=== PATIENT | male | born 1980 | race Caucasian/White ===

== ENCOUNTER 2017-04-13 22:53 | Emergency (ER) | payer MEDICAID, SELFPAY ==
[2016-12-11 11:39] VITALS: BMI 38.3
[2017-04-13 22:54] VITALS: BP 153/81; PULSE 87; RESP 16; TEMP 36.6; O2SAT 100; BMI 39.4
[2017-04-13] MEDS: Penicillin Vk 250 MG Tablet 500 MG PO (23:17)
--- NOTE | 2017-04-13 23:19 | ED.VISSUMM ---
- ER Visit Summary Date of Service: 04/13/17 Chief Complaint: Dental pain History of Present Illness: The patient is a 37 M worsening right upper dental pain today. Hot and cold sensitivities. Dental fracture 3 days ago. States had a filling fall out in same to the month ago put a temporary [id number] paste on it which has helped symptoms. Does have a dentist has not followed up. Been using Tylenol. No other complaints. Physical Examination: General: Alert and oriented ?3, no acute distress HEENT: Normocephalic, atraumatic. Moist mucosa membranes. There is a broken tooth tooth #2 on the lingual side. There is temporary pace centrally. There is no fluctuance. Tender percussion of the same tooth. Airway pain. Neck: supple, nontender. Cardiovascular: Regular rate and rhythm, no murmurs Respiratory: Normal breath sounds, symmetric, no distress Abdomen: Soft, nontender, nondistended Extremities: Nontender, no edema, pulses intact ?4 Neuro: no focal neurological deficits. Test Results: [] Emergency Department Course and Treatment: Dental copak was placed on the tooth, in addition I did perform a dental block which improved his symptoms. He started on penicillin. He will call his dentist tomorrow for outpatient follow-up for definitive care. Treatment Plan: [] Disposition: Discharge Impression: 1. Odontalgia, dental caries tooth #2 This note was generated with [employer] dictation software. It may contain incorrect words, spelling, and punctuation that were not noted in review of the chart prior to signing ED Disposition - Plan for ED Patient: Disposition: Home or Assisted Living Chief Complaint: Dental Diagnosis: Dental caries Instructions: ED Cavity Dental Prescriptions: Penicillin V Potassium 500 mg PO 4X/DAY #40 tablet Referrals: Wali Reynaga MD [Primary Care Provider] - Additional Instructions: Call dentist tomorrow for follow-up for definitive care.
--- NOTE | 2017-04-13 23:25 | ED.DCSUM_ITS ---
- ER Visit Summary Date of Service: 04/13/17 Chief Complaint: Dental pain History of Present Illness: The patient is a 37 M worsening right upper dental pain today. Hot and cold sensitivities. Dental fracture 3 days ago. States had a filling fall out in same to the month ago put a temporary over-the- counter paste on it which has helped symptoms. Does have a dentist has not followed up. Been using Tylenol. No other complaints. Physical Examination: General: Alert and oriented ?3, no acute distress HEENT: Normocephalic, atraumatic. Moist mucosa membranes. There is a broken tooth tooth #2 on the lingual side. There is temporary pace centrally. There is no fluctuance. Tender percussion of the same tooth. Airway pain. Neck: supple, nontender. Cardiovascular: Regular rate and rhythm, no murmurs Respiratory: Normal breath sounds, symmetric, no distress Abdomen: Soft, nontender, nondistended Extremities: Nontender, no edema, pulses intact ?4 Neuro: no focal neurological deficits. Test Results: [] Emergency Department Course and Treatment: Dental copak was placed on the tooth , in addition I did perform a dental block which improved his symptoms. He started on penicillin. He will call his dentist tomorrow for outpatient follow- up for definitive care. Treatment Plan: [] Disposition: Discharge Impression: 1. Odontalgia, dental caries tooth #2 This note was generated with [employer] dictation software. It may contain incorrect words, spelling, and punctuation that were not noted in review of the chart prior to signing ED Disposition - Plan for ED Patient: Disposition: Home or Assisted Living Chief Complaint: Dental Diagnosis: Dental caries Instructions: ED Cavity Dental Prescriptions: Penicillin V Potassium 500 mg PO 4X/DAY #40 tablet Referrals: Wali Reynaga MD [Primary Care Provider] - Additional Instructions: Call dentist tomorrow for follow-up for definitive care.
[2017-04-13 23:31] VITALS: RESP 18
== END 2017-04-13 23:32 | disposition home or self-care (01) ==
PROVIDERS: Emergency Provider Emergency Medicine; Family Provider Family Medicine; PCP Family Medicine
DX: K02.9 Dental caries, unspecified (principal); S02.5XXG Fracture of tooth (traumatic), subsequent encounter for fracture with delayed healing; X58.XXXD Exposure to other specified factors, subsequent encounter; E11.9 Type 2 diabetes mellitus without complications; I10 Essential (primary) hypertension; I25.10 Atherosclerotic heart disease of native coronary artery without angina pectoris; E78.00 Pure hypercholesterolemia, unspecified; Z72.0 Tobacco use
CPT/HCPCS: 64402; 99283

== ENCOUNTER → 2017-07-20 14:00 | Outpatient (CLI) | payer SELFPAY ==
[2016-12-11 11:39] VITALS: BMI 38.3
--- NOTE | 2017-07-20 14:00 | DT_ITS ---
This patient was seen during an EMR downtime July 19, 2017 - July 26, 2017. This patient may have a combination of paper and electronic documentation or all paper documentation. All documentation is viewable within the e-chart portion of [facility] for each patient visit.
[2017-07-26 10:40] LABS: Eosinophils% 4.5 % (0-5); Hematocrit 50.6 % (40-54); Lymphocyte % 35.7 % (19-41); Mean Corp Hgb Conc 33.6 g/gl (32-36); Mean Corpuscular Hgb 29.1 pg (27.0-32.0); Mean Corpuscular Volume 86.6 fL (80-94); Monocyte% 5.7 % (0-10); POSITIVE COUNT NO; POSITIVE DIFFERENTIAL NO; POSITIVE MORPHOLOGY NO; Platelet Count 228 K/mm3 (150-450); RBC Distribution Width CV 13.2 % (11.6-14.6); Red Blood Count 5.84 M/mm3 (4.6-6.2); White Blood Count 8.4 K/mm3 (4.4-11.0)
[2017-07-26 10:41] LABS: Absolute Neutrophil Count 4.5 X10^3/uL (2.0-7.7); Basophil# 0.06 X10^3/uL; Basophil% 0.7 % (0-1); Eosinophil# 0.38 X10^3/uL; Monocyte# 0.48 X10^3/uL; Neutrophil # 4.46 X10^3/uL (2.7-7.7)
[2017-07-26 10:42] LABS: ALB/GLOB Ratio 1.1 RATIO (0.9-2.4); AST(SGOT) 18 U/L (15-37); Alanine Aminotransfer ALT/SGPT 38 U/L (16-61); Albumin, Serum 3.9 g/dL (3.2-5.0); Alkaline Phosphatase 63 U/L (45-117); Anion Gap 8 (5-15); BUN 9 mg/dL (7-18); BUN/Creat Ratio 11.1 RATIO (10-20); Calcium,Total 8.9 mg/dL (8.5-10.1); Chloride 101 mmol/L (98-107); Creatinine, Serum 0.81 mg/dL (0.70-1.30); EST Glomerular Filtration Rate 114 mL/min (>60); Est Glom Filt Rate - Afr Amer 138 mL/min (>60); Globulin 3.6 g/dL (2.2-4.2); Glucose 239 mg/dL (74-106); Potassium 4.2 mmol/L (3.5-5.1); Protein, Total 7.5 g/dL (6.4-8.2); Sodium Level 135 mmol/L (136-145)
[2017-07-26 10:43] LABS: T4 Free Direct 1.02 ng/dL (0.76-1.46); Thyroid Stim Hormone (TSH) 1.17 uIU/mL (0.358-3.74)
== END ==
PROVIDERS: Family Provider Family Medicine; PCP Family Medicine; Visit Provider Family Medicine
DX: E11.9 Type 2 diabetes mellitus without complications (principal); F41.9 Anxiety disorder, unspecified; I25.10 Atherosclerotic heart disease of native coronary artery without angina pectoris; I10 Essential (primary) hypertension
CPT/HCPCS: 36415; 80053; 84439; 84443; 85025

== ENCOUNTER 2017-09-16 11:03 | Observation (INO) | payer SELFPAY ==
[2016-12-11 11:39] VITALS: BMI 38.3
[2017-09-16] VITALS (16 sets, daily range): BP systolic 126–176; BP diastolic 71–99; PULSE 83–106; RESP 14–21; TEMP 36.7–37; O2SAT 94–98; BMI 38.0; BMI 38.2; BMI 38.3
--- NOTE | 2017-09-16 11:21 | EKG12_ITS ---
Test Reason : CP Blood Pressure : / mmHG Vent. Rate : 107 BPM Atrial Rate : 107 BPM P-R Int : 166 ms QRS Dur : 078 ms QT Int : 326 ms P-R-T Axes : 061 006 053 degrees QTc Int : 435 ms Sinus tachycardia Otherwise normal ECG Confirmed by JONATAN CALDERON, CAMERON ([id number]), editor greeting card YOAN CLARK ([id number]) on 09/20/2017 2:00:52 PM Referred By: BENY Confirmed By:CAMERON CHEUNG MD
--- NOTE | 2017-09-16 11:21 | RAD_ITS ---
STUDY: X-RAY CHEST REASON FOR EXAM: Male, 37 years old. Chest discomfort. TECHNIQUE: Single AP portable view of the chest. COMPARISON: Comparison is made with prior study dated November 02, 2016. FINDINGS: EKG electrodes are seen. Mild increased markings at the left lung base suggests mild left basilar atelectasis. There is no demonstrated pleural abnormality. Normal size heart. Normal mediastinum and junior. Normal visualized pulmonary arteries. Normal visualized aortic arch and descending thoracic aorta. Normal visualized thoracic spine. Normal visualized ribs, clavicles, and shoulders. There is no demonstrated abnormality of the visualized soft tissue structures of the upper abdomen. RAD/Chest 1 View (Portable) IMPRESSION: Mild degree of increasing markings at the left lung base suggestive mild left basilar atelectasis. Electronically Signed: Leandro Urena MD at 12:34 EDT Tel [phone], Service support ,
[2017-09-16] MEDS: Aspirin 81 MG TAB.CHEW 324 MG PO (11:29)
[2017-09-16 11:32] LABS: Absolute Lymphocyte Count 2.38 X10^3/ul (0.83-4.51); Absolute Neutrophil Count 5.8 X10^3/uL (2.0-7.7); Basophil# 0.07 X10^3/uL; Basophil% 0.8 % (0-1); Eosinophil# 0.43 X10^3/uL; Eosinophils% 4.7 % (0-5); Hematocrit 51.5 % (40-54); Hemoglobin 17.9 g/dl (13.0-16.5); Lymphocyte # 2.38 X10^3/ul (4.0); Lymphocyte % 26.1 % (19-41); Mean Corp Hgb Conc 34.8 g/gl (32-36); Mean Corpuscular Volume 86.3 fL (80-94); Mean Platelet Vol. 11.2 fl (6.2-12.0); Monocyte# 0.43 X10^3/uL; Monocyte% 4.7 % (0-10); Neutrophil # 5.77 X10^3/uL (2.7-7.7); Neutrophil % 63.4 % (47-70); POSITIVE COUNT NO; POSITIVE DIFFERENTIAL NO; POSITIVE MORPHOLOGY NO; Platelet Count 253 K/mm3 (150-450); RBC Distribution Width CV 13.3 % (11.6-14.6); RBC Distribution Width SD 41.6 fl (35.1-43.9); Red Blood Count 5.97 M/mm3 (4.6-6.2); White Blood Count 9.1 K/mm3 (4.4-11.0)
[2017-09-16 11:45] LABS: Anion Gap 6 (5-15); BUN 7 mg/dL (7-18); BUN/Creat Ratio 8.1 RATIO (10-20); Calcium,Total 9.6 mg/dL (8.5-10.1); Chloride 98 mmol/L (98-107); Creatinine, Serum 0.86 mg/dL (0.70-1.30); EST Glomerular Filtration Rate 105 mL/min (>60); Est Glom Filt Rate - Afr Amer 127 mL/min (>60); Estimated Creatinine Clearance 129.08 ml/min; Glucose 313 mg/dL (74-106); Lipase 97 U/L (73-393); Potassium 4.5 mmol/L (3.5-5.1); Sodium Level 133 mmol/L (136-145)
--- NOTE | 2017-09-16 11:49 | ED.RN ---
REPORTS HEADACHE AND PT DIAPHORETIC. STATES THIS HAS BEEN HAPPENING INTERMITTENTLY SINCE WIT OTHER SX. SIGNIFICANT DROP IN PB WITH NOTRO HOLDIN THIRD NITRO
[2017-09-16] MEDS: 0.9% Normal Saline 1,000 ML 150 ML IV (11:52)
[2017-09-16 11:53] LABS: AST(SGOT) 16 U/L (15-37); Alanine Aminotransfer ALT/SGPT 32 U/L (16-61); Albumin, Serum 3.9 g/dL (3.2-5.0); Alkaline Phosphatase 68 U/L (45-117); Bilirubin, Direct 0.09 mg/dL (0.00-0.30); Protein, Total 7.9 g/dL (6.4-8.2)
[2017-09-16 12:05] LABS: D-Dimer Quantitative (DVT/PE) < 0.27 FEU/ug/m (0.27-0.49)
--- NOTE | 2017-09-16 13:19 | ED.VISSUMM ---
- ER Visit Summary Date of Service: 09/16/17 Chief Complaint: [Chest pain] History of Present Illness: The patient is a 37 M [presents with chest pain that started 5 days ago. Patient describes a dull pressure retrosternal and left chest. Patient also states he has had some pain in his right upper quadrant after eating at times hurts to breathe. He has had decreased energy has been feeling lightheaded and dizzy at times with activity. Patient is concerned because he does have a history of prior cardiac stent placement in November 2016. Patient has a history of diabetes, hypertension, and high cholesterol. Patient denies recent travel or surgery.] Physical Examination: [HEENT-PERRLA, EOMI. Cranial nerves II through XII grossly intact. TMs clear. Mucous membranes moist. No adenopathy. Cardiovascular-regular rate and rhythm without murmur or ectopy Lungs-clear to auscultation, chest wall stable without crepitus or subcu emphysema Abdomen-normoactive bowel sounds, soft. Patient does have some tenderness over right upper quadrant with some guarding. There is no rebound, rigidity, or perineal signs. Extremities-intact ?4, normal range of motion, normal pulses, atraumatic] Test Results: [EKG obtained on arrival shows sinus rhythm with a ventricular rate of 107 bpm with no acute ST segment changes. CBC with differential was normal. Chemistries unremarkable. LFTs and lipase were normal. Troponin was less than 0.015. D-dimer was less than 0.27. Chest x-ray showed mild atelectasis left left lung base otherwise nothing acute. ] Emergency Department Course and Treatment: [Patient currently on Plavix. He received sublingual nitro in the emergency department which did ease his pain but continues to complain of some discomfort.] Treatment Plan: [Admit to rule out cardiac etiology for his chest pain given his history of coronary artery disease and cardiac stent. Patient does state that this pain feels similar to what he had when he required stent.] Disposition: [Admit] Impression: [Chest pain-rule out acute coronary syndrome] This note was generated with [employer] dictation software. It may contain incorrect words, spelling, and punctuation that were not noted in review of the chart prior to signing ED Disposition - Plan for ED Patient: Chief Complaint: Chest Pain Referrals: Wali Reynaga MD [Primary Care Provider] -
--- NOTE | 2017-09-16 13:38 | HP.PCM_ITS ---
Problem List (1) Diabetes mellitus Status: Chronic Qualifiers: (2) Atherosclerotic heart disease of [place] coronary artery without angina pectoris Status: Chronic (3) Type 2 diabetes mellitus Status: Chronic (4) Dyslipidemia Status: Chronic (5) Hypertension Status: Chronic Qualifiers: (6) Mild intermittent asthma Status: Chronic (7) HLD (hyperlipidemia) Status: Chronic Qualifiers: History of Present Illness Date of Admission: 09/16/17 Chief Complaint: Chest pain. The patient is a 37 year old M with past medical history as mentioned above presented to the emergency room because of chest pain. His symptoms started this past Wednesday which is 4 days ago with mid chest pain, described as dull aching pain, constant pain, 5 out of 10 in severity, sometimes extends down to the epigastric and right upper quadrant abdominal pain, associated with nausea and dizziness, aggravated by taking a deep breath and without relieving factors. He reported associated significant retching and nausea. He mentioned that the pain has been constant for 4 days. In the emergency department, he was slightly tachycardic, other vital signs are stable. His routine blood work was unremarkable, blood sugar was 313. LFT and lipase were normal. EKG revealed normal sinus rhythm, no acute ischemic changes. Troponin is negative. Chest x-ray showed no acute findings. He is being admitted for chest pain for evaluation. Past Medical History Past Medical History (Chronic Problems): Chronic Problems (Last Updated 01/22/17 @ 10:19 by MARYLU Foster) Diabetes mellitus (Chronic) Claudication (Chronic) Patient does state getting discomfort that he describes as bubbly in his lower extremity legs when walking. He states this is a similar sensation to what he felt prior to his PCI. We will further evaluate this with ABIs. History of percutaneous coronary intervention (Chronic) PCI to LAD in November 2016 Atherosclerotic heart disease of [place] coronary artery without angina pectoris (Chronic) Type 2 diabetes mellitus (Chronic) Dyslipidemia (Chronic) Hypertension (Chronic) Simple obesity (Chronic) Tobacco user (Chronic) Mild intermittent asthma (Chronic) Morbid obesity with BMI of 40.0-44.9, adult (Chronic) HLD (hyperlipidemia) (Chronic) Medical History: Medical History (Last Updated 01/22/17 @ 10:19 by JEFFREY FosterC) Atherosclerotic heart disease of [place] coronary artery without angina pectoris (Chronic) I25.10 Type 2 diabetes mellitus (Chronic) E11.9 Dyslipidemia (Chronic) E78.5 Hypertension (Chronic) I10 Simple obesity (Chronic) E66.9 Tobacco user (Chronic) Z72.0 Mild intermittent asthma (Chronic) J45.20 Morbid obesity with BMI of 40.0-44.9, adult (Chronic) E66.01, Z68.41 HLD (hyperlipidemia) (Chronic) E78.5 Anxiety F41.9 Depression F32.9 Diabetic nephropathy Allergies lisinopril Allergy (Verified 04/13/17 22:57) Other CHRONIC COUGH niacin Allergy (Verified 04/13/17 22:57) Other poison emma extract Allergy (Verified 04/13/17 22:57) Unknown honey bee venom Allergy (Unknown, Uncoded 04/13/17 22:57) Unknown HENDRICKS DYE Allergy (Uncoded 04/13/17 22:57) Chest tightness POLLEN Allergy (Uncoded 04/13/17 22:57) Shortness of breath Home Medications: Ambulatory Orders Medication Instructions Recorded Albuterol Inhaler [Ventolin Hfa] 1 - 2 puff INHALATION Q4H PRN PRN 03/04/16 Fluticasone 110 Mcg [Flovent 110 1 puff INHALATION BID 03/04/16 Mcg] Insulin Glargine,Hum.rec.anlog 80 unit SQ BID 03/04/16 [Lantus] Aspirin E.C. [Ecotrin] 81 mg PO DAILY@0800 12/11/16 losartan 50 mg tablet 25 mg PO DAILY tab 01/20/17 Atorvastatin Calcium [Lipitor] 40 mg PO QHS 09/16/17 Clopidogrel Bisulfate [Plavix] 75 mg PO DAILY 09/16/17 Metoprolol Tartrate [Lopressor 25 mg PO BID 09/16/17 (beta conchis)] Surgical History: Surgical History (Last Updated 01/22/17 @ 10:20 by JEFFREY FosterC) History of percutaneous coronary intervention (Chronic) Z98.890 PCI to LAD in November 2016 Amputation of left index finger Onset Date: ~1999 S68.111A H/O lumbosacral spine surgery Onset Date: ~2013 Z98.890 L2-L5 History of vasectomy Onset Date: ~2007 Z98.52 Surgical History: - - Lt Index finger amputation 1999, vasectomy 2007, lower spine surgery L2-L5 2013. Psychiatric History: No pertinent psych hx Smoking Status: Current every day smoker Alcohol: None Drugs: None - *Family History Maternal Family History: Family History (Last Updated 01/22/17 @ 08:49 by Bakari Hayes) Sister No problems noted. Mother Kidney disease Father Diabetes Brother Diabetes History Items: Diabetes, High Cholesterol, Heart Disease, - - mom has RA, aunts with SLE, mom has fibromyalgia Paternal Family History: Family History (Last Updated 01/22/17 @ 08:49 by Bakari Hayes) Sister No problems noted. Mother Kidney disease Father Diabetes Brother Diabetes History Items: Diabetes, Heart Disease Review of Systems Constitutional: Reports: Anorexia. Denies: Chills, Fever, Weakness Eyes: Denies: Blurred vision, Double vision, Drainage, Redness HEENT: Denies: Difficulty Hearing, Ear Pain, Eye Pain, Nasal Congestion, Sore Throat Cardiovascular: Reports: Chest Pain, Chest Pressure. Denies: Edema, Heaviness, Light Headedness, Orthopnea, Paroxysmal Noc. Dyspnea, Syncope Respiratory: Denies: Cough, Pleuritic Pain, Shortness of Breath, Sputum production Gastrointestinal: Reports: Abdominal Pain, Nausea. Denies: Constipation, Diarrhea, Vomiting Genitourinary: Denies: Dysuria, Frequency, Hematuria Musculoskeletal: Denies: Arm Pain, Back Pain, Foot Pain Skin: Denies: Dryness, Rash Neurological: Denies: Balance problems, Double vision, Change in Speech, Slurred speech, Focal weakness, Headaches, Incoordination, Numbness Psychiatric: Denies: Anxiety, Depression Endocrine: Denies: Change in Body Habitus, Polydipsia VTE Information - Inpt Only VTE Present on Admission: No VTE Mechan Device Prophylaxis: None VTE Pharm Prophylaxis ordered?: No - Physical Exam General: Alert, Oriented x3, Cooperative, No apparent distress HEENT: Atraumatic, PERRLA, EOMI, Normocephalic Oral: Moist Mucosa, No Gingival or Mucosal Lesions/ Ulcerations Neck: Supple, No JVD, Negative Carotid Bruits, Negative Hepatojugular Reflux, Trachea Midline, Thyroid Normal Size and Texture Lungs: Clear to auscultation, No rhonchi, No wheeze, No rales, Diminished Cardiovascular: Regular rate, Regular Rhythm, Normal S1, Normal S2, PMI Normal, Tachycardic Abdomen: Bowel Sounds Present, Soft, Non-Distended, No Hepato-splenomegaly, Tender - Minimal right upper quadrant tenderness. Extremities: No clubbing, No cyanosis Skin: No rashes, No breakdown Musculoskeletal: No Tenderness to Palpation of Joints or Extremities Lymphatic: No Cervical, Supraclavicular, or Inguinal Adenopathy Neurological: Cranial nerves II-XII grossly intact, Motor Exam 5/5 strength throughout Psych/Mental Status: Normal Affect, Appropriate, Alert and oriented to time, place, person, mood and affect Vital Signs Temp Pulse Resp BP Pulse Ox 98.6 F 99 16 143/84 H 95 09/16/17 11:05 09/16/17 13:27 09/16/17 13:27 09/16/17 13:27 09/16/17 13:27 Oxygen Flow Rate (L/min) 2 Oxygen Delivery Method Nasal Cannula Weight: 280 lb Body Mass Index (BMI) 38.0 Laboratory Tests Past 24 Hrs 09/16/17 09/16/17 09/16/17 11:15 11:15 11:15 WBC 9.1 RBC 5.97 Hgb 17.9 H Hct 51.5 MCV 86.3 MCH 30.0 MCHC 34.8 RDW 13.3 RDW Differential 41.6 Plt Count 253 MPV 11.2 Immature Gran % (Auto) 0.300 Neut % (Auto) 63.4 Lymph % (Auto) 26.1 [place] % (Auto) 4.7 Eos % (Auto) 4.7 Baso % (Auto) 0.8 Absolute Neuts (auto) 5.8 Absolute Lymphs (auto) 2.38 Total Counted Not Reportable D-Dimer Quant (PE/DVT) < 0.27 L Sodium Potassium Chloride Carbon Dioxide Anion Gap BUN Creatinine Estim Creat Clear Calc Est GFR (MDRD) Af Amer Est GFR (MDRD) Non-Af BUN/Creatinine Ratio Glucose Calcium Total Bilirubin 0.40 Direct Bilirubin 0.09 AST 16 ALT 32 Alkaline Phosphatase 68 Troponin I Total Protein 7.9 Albumin 3.9 Globulin 4.0 Lipase 09/16/17 11:15 WBC RBC Hgb Hct MCV MCH MCHC RDW RDW Differential Plt Count MPV Immature Gran % (Auto) Neut % (Auto) Lymph % (Auto) [place] % (Auto) Eos % (Auto) Baso % (Auto) Absolute Neuts (auto) Absolute Lymphs (auto) Total Counted D-Dimer Quant (PE/DVT) Sodium 133 L Potassium 4.5 Chloride 98 Carbon Dioxide 29.0 Anion Gap 6 BUN 7 Creatinine 0.86 Estim Creat Clear Calc 129.08 Est GFR (MDRD) Af Amer 127 Est GFR (MDRD) Non-Af 105 BUN/Creatinine Ratio 8.1 L Glucose 313 H Calcium 9.6 Total Bilirubin Direct Bilirubin AST ALT Alkaline Phosphatase Troponin I < 0.015 Total Protein Albumin Globulin Lipase 97 Clinical Impression(s) from Imaging Studies Chest X-Ray 09/16/17 11:21 IMPRESSION: Mild degree of increasing markings at the left lung base suggestive mild left basilar atelectasis. Electronically Signed: Leandro Urena MD at 12:34 EDT Tel [phone], Service support , Assessment/Plan This is a 37 years old male patient presented to the emergency room because of chest pain and is being admitted for evaluation. #1 chest pain: Risk factors are hypertension, diabetes, hyperlipidemia, history of CAD status post stents. He has history of CAD with stent placement back in November,. His EKG revealed no acute ischemic changes. Troponin is negative. According to patient's description of symptoms, it is more likely of GI etiology for this chest pain. Chest x-ray showed no acute findings. Plan: Admit to PCU for observation, cardiac monitoring, serial cardiac enzymes, repeat EKG tomorrow morning, IV fluids, nitroglycerin as needed for pain, Protonix twice daily, Mylanta as needed, nuclear stress test tomorrow morning if cardiac enzymes are negative. Patient may need PPI upon discharge for probable GI bleed. #2 CAD status post stents: EKG is unremarkable, troponin is negative. Plan as above, continue aspirin, statins, Plavix, losartan and metoprolol. #3 type 2 diabetes mellitus: ADA diet, Accu-Cheks, insulin scale, continue Lantus insulin. #4 hypertension: Blood pressure stable, continue losartan and metoprolol. #5 hyperlipidemia: Continue statins. #6 mild asthma: Clinically stable, pulse ox is maintained on room air. Plan for albuterol as needed. #7 DVT prophylaxis: Low risk patient, no prophylaxis indicated. This note was generated with [employer] software. It may contain incorrect words, spelling, and punctuation that were not noted in checking the note before signing. Code Visit OBSV E&M: 10286 Initial observation care L3
--- NOTE | 2017-09-16 14:35 | US_ITS ---
STUDY: ABDOMINAL ULTRASOUND - RIGHT UPPER QUADRANT REASON FOR VISIT: Male, 37 years old. Abdominal pain TECHNIQUE: Ultrasound evaluation of the right upper quadrant was performed with real-time and static iglesias-scale imaging. TECHNICAL QUALITY: Adequate. COMPARISON: None. FINDINGS: Liver: The liver measures 19.8 cm. There is fatty echogenicity of the liver. The bile ducts are within normal limits. There is hepatic color flow. The direction of portal flow is hepatopetal. There is no demonstrated mass lesion. Gallbladder: Normal distended gallbladder. The gallbladder wall measures 3 mm. There is a negative sonographic Mathew's sign. There is no pericholecystic fluid. There are no gallstones. Common Bile Duct (C.B.D.): The common bile duct measures 4 mm. Pancreas: Normal size of the head, body and tail of the pancreas. There is normal echogenicity of the pancreas. There is no demonstrated pancreatic mass or cyst. Right Kidney: Normal size of the right kidney. The right kidney measures 12.1 x 5.6 x 5.8 cm. Normal renal cortex. The right cortex measures 2.3 cm. There is an upper pole 1 cm cyst. There is no right hydronephrosis. US/Gallbladder IMPRESSION: Enlarged fatty liver. Electronically Signed: Siddharth Hall DO at 18:01 EDT Tel [phone], Service support ,
[2017-09-16] MEDS: 0.9% Normal Saline 1,000 ML 75 ML IV (15:04)
--- NOTE | 2017-09-16 15:15 | EKG12_ITS ---
Test Reason : CHEST PAIN Blood Pressure : / mmHG Vent. Rate : 087 BPM Atrial Rate : 087 BPM P-R Int : 136 ms QRS Dur : 090 ms QT Int : 378 ms P-R-T Axes : -08 -14 139 degrees QTc Int : 454 ms Normal sinus rhythm Low voltage QRS (LIMB LEADS) Nonspecific T wave abnormality Abnormal ECG Confirmed by JONATAN CALDERON, CAMERON ([id number]), associate entertainment editor YOAN CLARK ([id number]) on 09/20/2017 3:46:50 PM Referred By: DOM Confirmed By:CAMERON CHEUNG MD
[2017-09-16 16:36] LABS: Bedside Glucose 245 mg/dL (70-110)
[2017-09-16] MEDS: Pantoprazole Sodium 40 MG Tablet PO ×2 (17:59→21:06)
[2017-09-16] MEDS: Insulin Lispro 100 UNIT/ML INSULN.PEN SC ×2 (17:59→21:05)
[2017-09-16] MEDS: Acetaminophen 325 MG Tablet 650 MG PO (18:15)
[2017-09-16] MEDS: Mag Hydrox/Al Hydrox/Simeth 30 ML UDC 15 ML PO (18:15)
[2017-09-16] MEDS: Budesonide Respules 0.5 MG/2 ML AMPUL.NEB. INHALATION (19:06)
[2017-09-16] MEDS: Metoprolol Tartrate 25 MG Tablet PO (21:06)
[2017-09-16] MEDS: Atorvastatin Calcium 40 MG Tablet PO (21:06)
[2017-09-16 21:20] LABS: Bedside Glucose 278 mg/dL (70-110)
[2017-09-17] VITALS (9 sets, daily range): BP systolic 115–139; BP diastolic 72–84; PULSE 77–95; RESP 18; TEMP 36.7–36.8; O2SAT 96–100
[2017-09-17 05:04] LABS: Absolute Lymphocyte Count 3.39 X10^3/ul (0.83-4.51); Absolute Neutrophil Count 4.1 X10^3/uL (2.0-7.7); Basophil# 0.05 X10^3/uL; Basophil% 0.6 % (0-1); Eosinophil# 0.58 X10^3/uL; Eosinophils% 6.6 % (0-5); Hematocrit 46.7 % (40-54); Hemoglobin 16.1 g/dl (13.0-16.5); Lymphocyte # 3.39 X10^3/ul (4.0); Lymphocyte % 38.6 % (19-41); Mean Corp Hgb Conc 34.5 g/gl (32-36); Mean Corpuscular Hgb 29.8 pg (27.0-32.0); Mean Corpuscular Volume 86.5 fL (80-94); Mean Platelet Vol. 11.4 fl (6.2-12.0); Monocyte% 6.8 % (0-10); Neutrophil # 4.13 X10^3/uL (2.7-7.7); Neutrophil % 47.1 % (47-70); Platelet Count 255 K/mm3 (150-450); RBC Distribution Width CV 13.7 % (11.6-14.6); White Blood Count 8.8 K/mm3 (4.4-11.0)
[2017-09-17 05:05] LABS: POSITIVE COUNT NO; POSITIVE DIFFERENTIAL NO; POSITIVE MORPHOLOGY NO
[2017-09-17 05:06] LABS: Partial Thromboplast Time 25.8 Seconds (24.1-36.2); Prothrombin Time (Protime)PT. 13.1 SECONDS (11.7-14.9)
[2017-09-17 05:18] LABS: Anion Gap 8 (5-15); BUN 14 mg/dL (7-18); BUN/Creat Ratio 15.9 RATIO (10-20); Chloride 102 mmol/L (98-107); Creatinine, Serum 0.88 mg/dL (0.70-1.30); EST Glomerular Filtration Rate 103 mL/min (>60); Est Glom Filt Rate - Afr Amer 124 mL/min (>60); Estimated Creatinine Clearance 126.15 ml/min; Glucose 262 mg/dL (74-106); Potassium 4.1 mmol/L (3.5-5.1); Sodium Level 137 mmol/L (136-145)
--- NOTE | 2017-09-17 05:55 | EKG12_ITS ---
Test Reason : AM EKG Blood Pressure : / mmHG Vent. Rate : 076 BPM Atrial Rate : 076 BPM P-R Int : 152 ms QRS Dur : 096 ms QT Int : 404 ms P-R-T Axes : 037 025 065 degrees QTc Int : 454 ms Normal sinus rhythm Normal ECG Confirmed by JONATAN CALDERON, CAMERON ([id number]), news editor YOAN CLARK ([id number]) on 09/20/2017 3:43:17 PM Referred By: LULI Confirmed By:CAMERON CHEUNG MD
[2017-09-17] MEDS: Losartan Potassium 25 MG Tablet PO (06:17)
[2017-09-17] MEDS: Aspirin E.C. 81 MG Tablet PO (06:17)
[2017-09-17] MEDS: Clopidogrel Bisulfate 75 MG Tablet PO (06:17)
[2017-09-17 06:25] LABS: Bedside Glucose 298 mg/dL (70-110)
--- NOTE | 2017-09-17 10:44 | STRESSREP ---
Stress Test Report Date: 09/17/2017 Procedure: Pharmacologic stress nuclear imaging study Indications: Chest pain; CAD; PCI Consent: Per the patient Procedure: The patient underwent pharmacologic (Regadenoson) evaluation with a peak heart rate of 102 beats per minute (55 predicted maximal heart rate) and a peak blood pressure of 120/80 mmHg. The baseline ECG demonstrated normal sinus rhythm. The peak pharmacologic ECG demonstrated no obvious ECG changes. [There were no cardiac dysrhythmias pretest, during pharmacologic infusion, or recovery]. The patient noted chest discomfort pretest, during infusion, and recovery without significant change. The examination was discontinued secondary to completion of protocol. Impression: 1. Pharmacologic (Regadenoson) evaluation 2. Peak pharmacologic ECG with no obvious ECG changes. 3. There were no cardiac dysrhythmias pretest, during pharmacologic infusion, or recovery 4. Nuclear images pending Myocardial perfusion imaging study: Technique: The patient was injected with 15 millicuries of technetium 99m Cardiolite and subsequently rest SPECT Cardiolite nuclear imaging was obtained in the horizontal long, vertical long, and short axis views. The patient underwent pharmacologic (Regadenoson) evaluation with a peak heart rate of 102 beats per minute (55 % percent predicted maximal heart rate) and a peak blood pressure of 120/80 mmHg. The patient was injected with 44.6 millicuries of technetium 99m Cardiolite and subsequently stress SPECT Cardiolite nuclear imaging was obtained in the horizontal long, vertical long, and short axis views. A gated Cardiolite study at peak stress was obtained. Interpretation: Rest and stress SPECT Cardiolite nuclear imaging status post realignment, normalization, and attenuation correction demonstrate as of extracardiac and gastrointestinal tracer uptake near the inferior segments. At rest there is notation of subtle diminished tracer uptake in portions of the mid towards distal lateral segments which appears to improve and/or normalize following stress. Following stress there appears to be relative uniform tracer uptake and myocardial perfusion appearing within normal limits. [There is end systolic thickening and brightening]. [The gated Cardiolite study demonstrates myocardial thickening and inward wall motion]. The reported LVEF is 54 %. Impression: 1. Rest and stress SPECT Cardiolite nuclear imaging demonstrate areas of extra cardiac/gastrointestinal tracer uptake and at rest subtle diminished tracer uptake in portions of the mid towards distal lateral segments which appear to improve and/or normalize following stress hearing compatible shifting soft tissue attenuation/artifact with no myocardial perfusion changes consider diagnostic for associated stress-induced myocardial ischemia. 2. The gated Cardiolite study reports an LVEF of 54 %. This note was generated with [employer] software. It may contain incorrect words, spelling, and punctuation that were not noted in checking the note before signing.
[2017-09-17] MEDS: Pantoprazole Sodium 40 MG Tablet PO (11:34)
[2017-09-17] MEDS: Insulin Lispro 100 UNIT/ML INSULN.PEN SC (11:34)
[2017-09-17] MEDS: Metoprolol Tartrate 25 MG Tablet PO (11:34)
--- NOTE | 2017-09-17 11:40 | CASEMGMT ---
Social Work Note PCU Reason for Consult: self pay Informant: Medical record and patient himself Summary: Patient admitted for further workup related to chest pain. Patient confirms self pay status, and that just filled out a Medicaid application with [facility] patient financial department today. Patient reports that does not qualify for Medicaid at this point, but was willing to fill out application. Patient states that he started a new job in February of 2017 and had [employer] at the time, so did not get insurance through employer. Patient's [employer] termed in July, so patient is now uninsured until open enrollment through employer this fall. 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 Patient reports to be and to have children, denies any safety concerns at home with family. No reports or indication of abuse. Patient reports that it is unfortunate not to have insurance right now, that this is a bit stressful, but does know to call [facility] financial department when bills arrive so as to make a payment plan, that has been through this type of situation before and knows what to do. Patient smiling, good eye contact, pleasant, and full affect during conversation. Plan: Patient discharging to home when medically stable. Has just applied today for Medicaid. Patient denies any needs or concerns with home going. Denies need for referrals for any type of support or resources at this time. Let patient know that if concerns, needs, or questions regarding access to resources, prior to leaving the hospital, marriage and family social worker can return to speak with patient. -VLADIMIR Radford, BINDERY OPERATOR
[2017-09-17 11:41] LABS: Bedside Glucose 314 mg/dL (70-110)
--- NOTE | 2017-09-17 11:59 | DCINST_ITS ---
- Discharge Diagnoses Current Active Problems: chest pain You will use the following diet at home:: Cardiac Your food should be the consistency of: Regular Your liquids should be the consistency of: Regular/Thin Discharge Activity: Return to Normal Activity Weight Bearing Status: Weight bearing as tolerated Call your doctor if you observe: Chest pain Allergies/Adverse Reactions: Allergies lisinopril Allergy (Verified 04/13/17 22:57) Other CHRONIC COUGH niacin Allergy (Verified 04/13/17 22:57) Other poison emma extract Allergy (Verified 04/13/17 22:57) Unknown honey bee venom Allergy (Unknown, Uncoded 04/13/17 22:57) Unknown HENDRICKS DYE Allergy (Uncoded 04/13/17 22:57) Chest tightness POLLEN Allergy (Uncoded 04/13/17 22:57) Shortness of breath Medications to take at Discharge Albuterol Inhaler [Ventolin Hfa] 1 - 2 puff INHALATION Q4H PRN PRN 03/04/16 Fluticasone 110 Mcg [Flovent 110 Mcg] 1 puff INHALATION BID 03/04/16 Insulin Glargine,Hum.rec.anlog [Lantus] 80 unit SQ BID 03/04/16 Aspirin E.C. [Ecotrin] 81 mg PO DAILY@0800 12/11/16 losartan 50 mg tablet 25 mg PO DAILY tab 01/20/17 Atorvastatin Calcium [Lipitor] 40 mg PO QHS 09/16/17 Clopidogrel Bisulfate [Plavix] 75 mg PO DAILY 09/16/17 Metoprolol Tartrate [Lopressor (beta conchis)] 25 mg PO BID 09/16/17 Primary Care Physician: Wali Reynaga MD [Primary Care Provider] - Please follow up with your Primary Care Physician in: one week Test Results: Test results from this visit will be discussed in further detail at your follow- up appointment, if applicable. Proposed Discharge Date: 09/17/17
--- NOTE | 2017-09-17 12:04 | PCM.DC.SUM ---
Discharge Date and Diagnosis Date of Admission: 09/16/17 Date of Discharge: 09/17/17 - Primary Discharge Diagnosis chest pain - Secondary Discharge Diagnosis Chronic Problems (Last Updated 01/22/17 @ 10:19 by JEFFREY FosterC) Diabetes mellitus (Chronic) Claudication (Chronic) Patient does state getting discomfort that he describes as bubbly in his lower extremity legs when walking. He states this is a similar sensation to what he felt prior to his PCI. We will further evaluate this with ABIs. History of percutaneous coronary intervention (Chronic) PCI to LAD in November 2016 Atherosclerotic heart disease of [place] coronary artery without angina pectoris (Chronic) Type 2 diabetes mellitus (Chronic) Dyslipidemia (Chronic) Hypertension (Chronic) Simple obesity (Chronic) Tobacco user (Chronic) Mild intermittent asthma (Chronic) Morbid obesity with BMI of 40.0-44.9, adult (Chronic) HLD (hyperlipidemia) (Chronic) Hospital Course and Treatment Imaging Results: 09/17/17 05:55 Nuclear Stress Test - Chemical [NM] AM (NON MEDS) Diagnostic Data Chest X-Ray 09/16/17 11:21 IMPRESSION: Mild degree of increasing markings at the left lung base suggestive mild left basilar atelectasis. Electronically Signed: Leandro Urena MD at 12:34 EDT Tel [phone], Service support , Gallbladder Ultrasound 09/16/17 14:35 IMPRESSION: Enlarged fatty liver. Electronically Signed: Siddharth Hall DO at 18:01 EDT Tel [phone], Service support , Operations: None Procedures: Stress test Summary of Care Provided: The patient is a 37 year old M with a PMH of diabetes mellitus, CAD s/p stents, hyperlipidemia and hypertension as well as ?COPD. He was admitted with a complaint of chest pain of about 4 days duration. He described as retrosternal initially started on the right and then went over to the left, and extending to the epigastric region as well. Was pleuritic as well in nature. Troponins were negative and EKG showed sinus rhythm with no acute ischemic changes. Chest x-ray showed no acute findings. She was admitted and managed for chest pain to rule out ACS. He had a myocardial stress perfusion test which was negative. Patient seen and examined prior to discharge. He still said he had chest pain but it was better controlled. He denied any fever or chills, shortness of breath, chest pain, abdominal pain, diarrhea vomiting. Review of systems otherwise negative. He is still smoking and states he has not been very compliant with his inhalers at home. o/e: Vital Signs Height 6 ft Weight: 282 lb 3.067 oz Weight in Pounds 282.2 lbs BMI 38.3 Pulse Ox 99 Temperature 98.1 F Pulse Rate 90 Respiratory Rate 18 Blood Pressure [BP] 130/72 Blood Pressure 130/72 Blood Pressure Position [BP] Sitting Blood Pressure Position Sitting General: Alert, Oriented x3, Cooperative, No apparent distress HEENT: Atraumatic, PERRLA, EOMI, Normocephalic Oral: Moist Mucosa, No Gingival or Mucosal Lesions/ Ulcerations Neck: Supple, No JVD, Negative Carotid Bruits, Negative Hepatojugular Reflux, Trachea Midline, Thyroid Normal Size and Texture Lungs: has some wheezing and rhonchi on auscultation. Cardiovascular: Regular rate, Regular Rhythm, Normal S1, Normal S2, PMI Normal, Tachycardic Abdomen: Bowel Sounds Present, Soft, Non-Distended, No Hepato-splenomegaly, Tender - Minimal right upper quadrant tenderness. Extremities: No clubbing, No cyanosis Skin: No rashes, No breakdown Musculoskeletal: No Tenderness to Palpation of Joints or Extremities Lymphatic: No Cervical, Supraclavicular, or Inguinal Adenopathy Neurological: Cranial nerves II-XII grossly intact, Motor Exam 5/5 strength throughout Psych/Mental Status: Normal Affect, Appropriate, Alert and oriented to time, place, person, mood and affect Patient being discharged home. Counseled to continue with his inhalers and to be adherent. Patient given a prescription for p.o. Protonix 40 mg daily. He is to follow-up with his PCP in 1 week. [] Discharge Diet: 2000 mg Sodium Diet Discharge Activity: Return to Normal Activity Weight Bearing Status: Weight bearing as tolerated Call your doctor if you observe: Chest pain Home Medications: Medications to take at Discharge Albuterol Inhaler [Ventolin Hfa] 1 - 2 puff INHALATION Q4H PRN PRN 03/04/16 Fluticasone 110 Mcg [Flovent 110 Mcg] 1 puff INHALATION BID 03/04/16 Insulin Glargine,Hum.rec.anlog [Lantus] 80 unit SQ BID 03/04/16 Aspirin E.C. [Ecotrin] 81 mg PO DAILY@0800 12/11/16 losartan 50 mg tablet 25 mg PO DAILY tab 01/20/17 Atorvastatin Calcium [Lipitor] 40 mg PO QHS 09/16/17 Clopidogrel Bisulfate [Plavix] 75 mg PO DAILY 09/16/17 Metoprolol Tartrate [Lopressor (beta conchis)] 25 mg PO BID 09/16/17 Pantoprazole Sodium [Protonix] 40 mg PO DAILY #30 tab 09/17/17 Following Prescrptions Were Given to Patient: Pantoprazole Sodium [Protonix] 40 mg PO DAILY #30 tab Primary Care Physician: Wali Reynaga MD [Primary Care Provider] - Please follow up with your Primary Care Physician in: one week Disposition: Home Minutes spent on discharge:: 35 Patient Condition:: Stable Medical Necessity - Tobacco Use Smoking Status: Current every day smoker Tobacco Use: Cigarettes Meaningful Use Info Meaningful Use Diagnoses (Choose all that apply): None applicable Code Visit Inpatient E&M: 77657 Disch Hosp
--- NOTE | 2017-09-17 12:13 | DS.PCM_ITS ---
Discharge Date and Diagnosis Date of Admission: 09/16/17 Date of Discharge: 09/17/17 - Primary Discharge Diagnosis chest pain - Secondary Discharge Diagnosis Chronic Problems (Last Updated 01/22/17 @ 10:19 by JEFFREY FosterC) Diabetes mellitus (Chronic) Claudication (Chronic) Patient does state getting discomfort that he describes as bubbly in his lower extremity legs when walking. He states this is a similar sensation to what he felt prior to his PCI. We will further evaluate this with ABIs. History of percutaneous coronary intervention (Chronic) PCI to LAD in November 2016 Atherosclerotic heart disease of [place] coronary artery without angina pectoris (Chronic) Type 2 diabetes mellitus (Chronic) Dyslipidemia (Chronic) Hypertension (Chronic) Simple obesity (Chronic) Tobacco user (Chronic) Mild intermittent asthma (Chronic) Morbid obesity with BMI of 40.0-44.9, adult (Chronic) HLD (hyperlipidemia) (Chronic) Hospital Course and Treatment Imaging Results: 09/17/17 05:55 Nuclear Stress Test - Chemical [NM] AM (NON MEDS) Diagnostic Data Chest X-Ray 09/16/17 11:21 IMPRESSION: Mild degree of increasing markings at the left lung base suggestive mild left basilar atelectasis. Electronically Signed: Leandro Urena MD at 12:34 EDT Tel [phone], Service support , Gallbladder Ultrasound 09/16/17 14:35 IMPRESSION: Enlarged fatty liver. Electronically Signed: Siddharth Hall DO at 18:01 EDT Tel [phone], Service support , Operations: None Procedures: Stress test Summary of Care Provided: The patient is a 37 year old M with a PMH of diabetes mellitus, CAD s/p stents, hyperlipidemia and hypertension as well as ?COPD. He was admitted with a complaint of chest pain of about 4 days duration. He described as retrosternal initially started on the right and then went over to the left, and extending to the epigastric region as well. Was pleuritic as well in nature. Troponins were negative and EKG showed sinus rhythm with no acute ischemic changes. Chest x-ray showed no acute findings. She was admitted and managed for chest pain to rule out ACS. He had a myocardial stress perfusion test which was negative. Patient seen and examined prior to discharge. He still said he had chest pain but it was better controlled. He denied any fever or chills, shortness of breath, chest pain, abdominal pain, diarrhea vomiting. Review of systems otherwise negative. He is still smoking and states he has not been very compliant with his inhalers at home. o/e: Vital Signs Height 6 ft Weight: 282 lb 3.067 oz Weight in Pounds 282.2 lbs BMI 38.3 Pulse Ox 99 Temperature 98.1 F Pulse Rate 90 Respiratory Rate 18 Blood Pressure [BP] 130/72 Blood Pressure 130/72 Blood Pressure Position [BP] Sitting Blood Pressure Position Sitting General: Alert, Oriented x3, Cooperative, No apparent distress HEENT: Atraumatic, PERRLA, EOMI, Normocephalic Oral: Moist Mucosa, No Gingival or Mucosal Lesions/ Ulcerations Neck: Supple, No JVD, Negative Carotid Bruits, Negative Hepatojugular Reflux, Trachea Midline, Thyroid Normal Size and Texture Lungs: has some wheezing and rhonchi on auscultation. Cardiovascular: Regular rate, Regular Rhythm, Normal S1, Normal S2, PMI Normal, Tachycardic Abdomen: Bowel Sounds Present, Soft, Non-Distended, No Hepato-splenomegaly, Tender - Minimal right upper quadrant tenderness. Extremities: No clubbing, No cyanosis Skin: No rashes, No breakdown Musculoskeletal: No Tenderness to Palpation of Joints or Extremities Lymphatic: No Cervical, Supraclavicular, or Inguinal Adenopathy Neurological: Cranial nerves II-XII grossly intact, Motor Exam 5/5 strength throughout Psych/Mental Status: Normal Affect, Appropriate, Alert and oriented to time, place, person, mood and affect Patient being discharged home. Counseled to continue with his inhalers and to be adherent. Patient given a prescription for p.o. Protonix 40 mg daily. He is to follow-up with his PCP in 1 week. [] Discharge Diet: 2000 mg Sodium Diet Discharge Activity: Return to Normal Activity Weight Bearing Status: Weight bearing as tolerated Call your doctor if you observe: Chest pain Home Medications: Medications to take at Discharge Albuterol Inhaler [Ventolin Hfa] 1 - 2 puff INHALATION Q4H PRN PRN 03/04/16 Fluticasone 110 Mcg [Flovent 110 Mcg] 1 puff INHALATION BID 03/04/16 Insulin Glargine,Hum.rec.anlog [Lantus] 80 unit SQ BID 03/04/16 Aspirin E.C. [Ecotrin] 81 mg PO DAILY@0800 12/11/16 losartan 50 mg tablet 25 mg PO DAILY tab 01/20/17 Atorvastatin Calcium [Lipitor] 40 mg PO QHS 09/16/17 Clopidogrel Bisulfate [Plavix] 75 mg PO DAILY 09/16/17 Metoprolol Tartrate [Lopressor (beta conchis)] 25 mg PO BID 09/16/17 Pantoprazole Sodium [Protonix] 40 mg PO DAILY #30 tab 09/17/17 Following Prescrptions Were Given to Patient: Pantoprazole Sodium [Protonix] 40 mg PO DAILY #30 tab Primary Care Physician: Wali Reynaga MD [Primary Care Provider] - Please follow up with your Primary Care Physician in: one week Disposition: Home Minutes spent on discharge:: 35 Patient Condition:: Stable Medical Necessity - Tobacco Use Smoking Status: Current every day smoker Tobacco Use: Cigarettes Meaningful Use Info Meaningful Use Diagnoses (Choose all that apply): None applicable Code Visit Inpatient E&M: 42298 Disch Hosp
== END 2017-09-17 11:58 | disposition home or self-care (01) ==
LOC: ED 11:52 → PCU 13:36
PROVIDERS: Admitting Provider Hospitalist; Emergency Provider Emergency Medicine; Family Provider Family Medicine; PCP Family Medicine; Visit Provider Student in an Organized Health Care Education/Training Program
DX: R07.89 Other chest pain (principal); I10 Essential (primary) hypertension; E11.9 Type 2 diabetes mellitus without complications; R42 Dizziness and giddiness; I25.10 Atherosclerotic heart disease of native coronary artery without angina pectoris; E78.5 Hyperlipidemia, unspecified; J45.20 Mild intermittent asthma, uncomplicated; E66.01 Morbid (severe) obesity due to excess calories; F17.210 Nicotine dependence, cigarettes, uncomplicated; Z95.5 Presence of coronary angioplasty implant and graft; Z79.899 Other long term (current) drug therapy; Z79.4 Long term (current) use of insulin; Z79.02 Long term (current) use of antithrombotics/antiplatelets; Z79.82 Long term (current) use of aspirin; Z68.38 Body mass index [BMI] 38.0-38.9, adult; Z71.3 Dietary counseling and surveillance
CPT/HCPCS: 36415; 71045; 76705; 78452; 80048; 80076; 82962; 83690; 84484; 85025; 85379; 85610; 85730; 93005; 93017; 94640; 96360; 96361; 99218; 99285; 99406; A9500; J7030; A4216; G0378; J2785

== ENCOUNTER → 2018-05-13 13:03 | Outpatient (CLI) | payer BC, SELFPAY ==
[2016-12-11 11:39] VITALS: BMI 38.3
[2017-09-16 14:24] VITALS: BMI 38.2
--- NOTE | 2018-05-13 13:07 | RAD_ITS ---
STUDY: X-RAY CHEST REASON FOR EXAM: Male, 38 years old. Dysphagia with frequent aspiration. TECHNIQUE: PA and lateral views of the chest. COMPARISON: November 02, 2016 and September 16, 2017 FINDINGS: The lungs are clear and expanded. There is no demonstrated pleural abnormality. Normal size heart. Normal mediastinum and junior. Normal visualized pulmonary arteries. Normal visualized aortic arch and descending thoracic aorta. Normal visualized thoracic spine. Normal visualized ribs, clavicles, and shoulders. There is no demonstrated abnormality of the visualized soft tissue structures of the upper abdomen. RAD/Chest PA and Lateral IMPRESSION: No acute cardiopulmonary process. Electronically Signed: Lisa Ortez MD at 16:08 EDT Tel , Service support ,
== END ==
PROVIDERS: Family Provider Family Medicine; PCP Family Medicine; Referring Provider Family Medicine; Visit Provider Family Medicine
DX: T17.908A Unspecified foreign body in respiratory tract, part unspecified causing other injury, initial encounter (principal); Z72.0 Tobacco use
CPT/HCPCS: 71046

== ENCOUNTER 2019-05-24 09:49 | Emergency (ER) | payer BC, SELFPAY ==
[2016-12-11 11:39] VITALS: BMI 38.3
[2019-05-24 09:50] VITALS: BP 127/95; PULSE 110; RESP 19; TEMP 36.2; O2SAT 100; BMI 36.6
--- NOTE | 2019-05-24 10:00 | RAD_ITS ---
STUDY: X-RAY CHEST REASON FOR EXAM: Male, 39 years old. COUGH, RIGHT RIB PAIN; -- ASTHMA, H/O VT TECHNIQUE: Single AP portable view of the chest. COMPARISON: Comparison is made with prior study dated May 13, 2018. FINDINGS: The lungs are clear and expanded. There is no demonstrated pleural abnormality. Normal size heart. Normal mediastinum and junior. Normal visualized pulmonary arteries. Normal visualized aortic arch and descending thoracic aorta. Normal visualized thoracic spine. Normal visualized ribs, clavicles, and shoulders. There is no demonstrated abnormality of the visualized soft tissue structures of the upper abdomen. RAD/Chest 1 View (Portable) IMPRESSION: Normal x-ray examination of the chest. Electronically Signed: Leandro Urena, at 10:28 EDT , Service support ,
--- NOTE | 2019-05-24 10:01 | ED.VIS.GEN ---
History of Present Illness Chief Complaint: Chest Other Detail of Chief Complaint: Right rib pain Informant: Patient Onset: Days Context: Sudden Onset Timing: Waxes and wanes Current Severity: Moderate Maximum Severity: Moderate Narrative: Patient presents secondary to right lower rib pain. He has a history of asthma and questionable COPD. He states he has had a chronic cough with URI symptoms since February. He has seen his PCP and has been on steroids antibiotics which will help while he is on the medication. He is still currently on steroids. Patient states a few days ago he had a coughing fit and felt a popping sensation in his right lower ribs. Since that time he has had pain to that area. He feels like he started to get some spasms. Pain is worse with movement and deep breath. He states he had a hard time finding position of comfort to sleep last night. He has not had fever or chills. - Past Medical History (1) Atherosclerotic heart disease of [place] coronary artery without angina pectoris Status: Chronic (2) HLD (hyperlipidemia) Status: Chronic (3) Hypertension Status: Chronic (4) Mild intermittent asthma Status: Chronic (5) Presence of stent in coronary artery Status: Chronic Comment: PCI/ROB to LAD in November 2016 (6) Type 2 diabetes mellitus Status: Chronic Past Medical History - Allergies and Home Meds Allergies/Adverse Reactions: Allergies lisinopril Allergy (Verified 05/24/19 09:50) Other CHRONIC COUGH niacin Allergy (Verified 05/24/19 09:50) Other poison emma extract Allergy (Verified 05/24/19 09:50) Unknown honey bee venom Allergy (Unknown, Uncoded 05/24/19 09:50) Unknown HENDRICKS DYE Allergy (Uncoded 05/24/19 09:50) Chest tightness POLLEN Allergy (Uncoded 05/24/19 09:50) Shortness of breath Primary Care Physician: Wali Reynaga MD [Primary Care Provider] - Prior records reviewed: Yes Surgical History: - - Lt Index finger amputation 1999, vasectomy 2007, lower spine surgery L2-L5 2013. Smoking Status: Current every day smoker - Family History Maternal Family History: Family History (Last Updated 01/22/17 @ 08:49 by Bakari Hayes) Sister No problems noted. Mother Kidney disease Father Diabetes Brother Diabetes Family History: Reports: Diabetes, High Cholesterol, Heart Disease, - - mom has RA, aunts with SLE, mom has fibromyalgia Paternal Family History: Family History (Last Updated 01/22/17 @ 08:49 by Bakari Hayes) Sister No problems noted. Mother Kidney disease Father Diabetes Brother Diabetes Family History: Reports: Diabetes, Heart Disease Review of Systems General: Denies: Chills, Fever Eyes: Denies: Visual changes - bilaterally ENT: Denies: Bilateral ear pain Cardiovascular: Reports: Chest pain - Right lower ribs Respiratory: Reports: Cough Gastrointestinal: Denies: Abdominal pain, Nausea, Vomiting, Diarrhea Genitourinary: Denies: Dysuria Musculoskeletal: Denies: Swelling, Extremity Pain Skin: Denies: Rash Neurological: Denies: Headache Allergy: Denies: Uticaria Physical Exam Vital Signs/Narrative: Vital Signs Temp Pulse Resp BP Pulse Ox 05/24/19 09:50 97.2 F L 110 H 19 H 127/95 H 100 Inital Vital Signs reviewed: Yes General: Well nourished, Well developed Head: Normocephalic ENT: Moist mucous membranes Neck: Supple Cardiovascular: Regular rate, Regular rhythm Respiratory: No distress, Chest tenderness - Reproducible chest wall tenderness of the right lower ribs. No crepitus., - - Mild expiratory wheezes. Abdomen: Soft, Nontender Back: Nontender Extremities: Nontender Skin: Normal color, No rash Neurological: Alert, Oriented x3 Psychological: Normal affect Diagnostic/Tx/Re-eval Impressions Chest X-Ray 05/24/19 10:00 IMPRESSION: Normal x-ray examination of the chest. Electronically Signed: Leandro Urena, at 10:28 EDT , Service support , 05/24/19 10:00 Chest 1 View (Portable) [RAD] Stat - Medical Decision Making Test results discussed with the patient. My suspicion is that he has separation of rib and cartilage along the right lower ribs. Patient will be given a prescription for [place] to help with pain. He is already on prednisone. He was instructed on taking deep breaths to prevent atelectasis and pneumonia. ED Disposition - Plan for ED Patient: Disposition: Home or Assisted Living Diagnosis: Strain of chest wall Instructions: ED Strain Chest Wall Prescriptions: Hydrocodone Bitart/Apap 5-325 [[place] 5MG-325MG] 1 tablet PO Q6H PRN PRN 3 Days #10 tablet PRN Reason: Pain Transmission Status: Sent to [facility]30 Referrals: Wali Reynaga MD [Primary Care Provider] - 1 Week if not improving
[2019-05-24 11:07] VITALS: BP 134/77; PULSE 62; RESP 15; O2SAT 98
== END 2019-05-24 11:09 | disposition home or self-care (01) ==
PROVIDERS: Emergency Provider Emergency Medicine; PCP Family Medicine
DX: S29.011A Strain of muscle and tendon of front wall of thorax, initial encounter (principal); X50.9XXA Other and unspecified overexertion or strenuous movements or postures, initial encounter; Y93.9 Activity, unspecified; Y92.89 Other specified places as the place of occurrence of the external cause; Y99.9 Unspecified external cause status; I25.10 Atherosclerotic heart disease of native coronary artery without angina pectoris; E78.5 Hyperlipidemia, unspecified; I10 Essential (primary) hypertension; E11.9 Type 2 diabetes mellitus without complications; J45.20 Mild intermittent asthma, uncomplicated; Z95.5 Presence of coronary angioplasty implant and graft; Z82.49 Family history of ischemic heart disease and other diseases of the circulatory system; Z88.8 Allergy status to other drugs, medicaments and biological substances; I25.2 Old myocardial infarction; F17.200 Nicotine dependence, unspecified, uncomplicated; Z89.022 Acquired absence of left finger(s)
CPT/HCPCS: 71045; 99282

== ENCOUNTER → 2019-08-22 12:15 | Outpatient (CLI) | payer BC, SELFPAY ==
[2016-12-11 11:39] VITALS: BMI 38.3
== END ==
PROVIDERS: PCP Family Medicine; Visit Provider Family Medicine Hospice and Palliative Medicine
DX: Z11.59 Encounter for screening for other viral diseases (principal)
CPT/HCPCS: 87635; G2023; U0003

== ENCOUNTER → 2019-11-09 10:11 | Outpatient (CLI) | payer BC, SELFPAY ==
[2016-12-11 11:39] VITALS: BMI 38.3
--- NOTE | 2019-11-09 10:33 | RAD_ITS ---
STUDY: X-RAY - ABDOMEN/PELVIS REASON FOR EXAM: Male, 39 years old. LEFT FLANK PAIN, WITH FREQUENT URINATION AND BURNING PER PATIENT. NO HX OF KIDNEY STONES. TECHNIQUE: Two AP supine views of the abdomen and pelvis. COMPARISON: None. FINDINGS: Normal visualized lung bases. There is an unremarkable bowel gas pattern. There is no demonstrated free abdominal air. The visualized liver, spleen and kidneys are grossly normal in size and morphology. Normal soft tissue structures. There are status post laminectomy changes of L4 and L5. RAD/Abdomen Single View IMPRESSION: Status post laminectomy of L4 and L5. No abnormal intra-abdominal or intrapelvic calcifications are seen. Electronically Signed: Lalo Dickinson MD at 23:29 EDT , Service support ,
[2019-11-09 12:52] LABS: Absolute Neutrophil Count 5.4 X10^3/uL (2.0-7.7); Basophil# 0.07 X10^3/uL; Basophil% 0.8 % (0-1); Eosinophil# 0.45 X10^3/uL; Eosinophils% 5.2 % (0-5); Hematocrit 51.5 % (40-54); Hemoglobin 17.5 g/dL (13.0-16.5); Lymphocyte % 25.3 % (19-41); Mean Corpuscular Hgb 29.9 pg (27.0-32.0); Mean Platelet Vol. 11.9 fl (6.2-12.0); Monocyte# 0.57 X10^3/uL; Monocyte% 6.5 % (0-10); NRBC Flagged by Analyzer 0 % (0-5); Neutrophil # 5.38 X10^3/uL (2.7-7.7); Neutrophil % 61.7 % (47-70); Platelet Count 270 K/mm3 (150-450); RBC Distribution Width CV 12.8 % (11.6-14.6); RBC Distribution Width SD 41.7 fl (35.1-43.9); Red Blood Count 5.85 M/mm3 (4.6-6.2); White Blood Count 8.7 K/mm3 (4.4-11.0)
[2019-11-09 13:15] LABS: AST(SGOT) 16 U/L (15-37); Alanine Aminotransfer ALT/SGPT 34 U/L (16-61); Albumin, Serum 3.7 g/dL (3.2-5.0); Alkaline Phosphatase 62 U/L (45-117); Anion Gap 6 (5-15); BUN 8 mg/dL (7-18); BUN/Creat Ratio 11.1 RATIO (10-20); Calcium,Total 8.9 mg/dL (8.5-10.1); Chloride 103 mmol/L (98-107); Creatinine, Serum 0.72 mg/dL (0.70-1.30); EST Glomerular Filtration Rate 128 mL/min (>60); Est Glom Filt Rate - Afr Amer 155 mL/min (>60); Globulin 3.6 g/dL (2.2-4.2); Glucose 209 mg/dL (74-106); Potassium 4.2 mmol/L (3.5-5.1); Protein, Total 7.3 g/dL (6.4-8.2); Sodium Level 137 mmol/L (136-145)
== END ==
PROVIDERS: PCP Family Medicine; Referring Provider Family Medicine; Visit Provider Family Medicine
DX: R10.9 Unspecified abdominal pain (principal); R30.0 Dysuria
CPT/HCPCS: 36415; 74018; 80053; 85025; 87077; 87086; 87088; 87186

== ENCOUNTER → 2019-11-23 08:06 | Outpatient (CLI) | payer BC, SELFPAY ==
[2016-12-11 11:39] VITALS: BMI 38.3
--- NOTE | 2019-11-23 08:20 | CT_ITS ---
STUDY: CT ABDOMEN AND PELVIS WITHOUT CONTRAST REASON FOR EXAM: Male, 39 years old. BILATERAL FLANK PAIN WITH HEMATURIA X 1 MONTH. HX OF BACK SURGERY L1-L5 RADIATION DOSAGE (If Supplied By Facility): CTDIvol = ( 19.44 ) mGy, DLP = ( 1156.20 ) mGycm TECHNIQUE: Transaxial images were obtained from the dome of the diaphragm to the symphysis pubis without oral contrast, and without intravenous contrast. Sagittal and coronal images were reconstructed. Individualized dose optimization techniques were used for this CT. COMPARISON: None. FINDINGS: The visualized lung bases are unremarkable. The visualized portions of the heart are within normal limits. There is decreased attenuation of the liver consistent with steatosis. Normal gallbladder and extrahepatic biliary system. Normal spleen. Normal pancreas. Normal bilateral adrenal glands. Normal right kidney. Normal left kidney. Normal visualized stomach. Normal small intestine. Normal colon. The appendix is visualized and appears normal. Normal abdominal aorta. Normal inferior vena cava. Normal retroperitoneum. Normal urinary bladder. Normal abdominal wall. There are diffuse degenerative changes of the visualized lumbar spine. Laminectomy changes of the lower lumbar spine. CT/Abdomen/Pelvis without Cont IMPRESSION: No hydronephrosis or urinary tract calcifications. Electronically Signed: Finesse Banks MD (Brooks) at 12:50 EDT , Service support ,
== END ==
PROVIDERS: PCP Family Medicine; Referring Provider Family Medicine; Visit Provider Family Medicine
CPT/HCPCS: 74176

== ENCOUNTER 2019-12-12 09:17 | Emergency (ER) | payer BC, SELFPAY ==
[2016-12-11 11:39] VITALS: BMI 38.3
[2019-12-12 09:18] VITALS: BP 130/97; PULSE 111; RESP 16; TEMP 36.6; O2SAT 100; BMI 35.2
--- NOTE | 2019-12-12 09:36 | EKG12_ITS ---
Test Reason : BACK PAIN Blood Pressure : / mmHG Vent. Rate : 097 BPM Atrial Rate : 097 BPM P-R Int : 152 ms QRS Dur : 074 ms QT Int : 340 ms P-R-T Axes : 067 020 060 degrees QTc Int : 431 ms Normal sinus rhythm Normal ECG Confirmed by JONATAN CALDERON, CAMERON ([id number]), editor producer PHAM BASS ([id number]) on 12/14/2019 9:02:30 AM Referred By: KURTIS Confirmed By:CAMERON CHEUNG MD
--- NOTE | 2019-12-12 09:38 | ED.DCSUM_ITS ---
- ER Visit Summary Date of Service: 12/12/19 Chief Complaint: [Back pain] History of Present Illness: The patient is a 39 M [presents the emergency department complaint of lower back pain for about a month. Patient states that over the last 3 days or so the pain is gotten significantly worse and he is havi ng a hard time getting around and caring for himself. He has been taken Tylenol at home without much pain relief. He denies any injury or trauma to his back. He denies any pain rating down his legs. He denies weakness in extremities. He denies change in bowel or bladder function. He does have prior history in 2013 of a laminectomy at L4-5. Patient states that he had some urinary symptoms a month ago as well as the back pain when it first started therefore he had a urinalysis and a CT scan obtained of the abdomen pelvis to rule out kidney stone which was negative for stone. After taking antibiotics his urinary symptoms resolved. Patient does have history of coronary artery disease, diabetes, hypertension, high cholesterol, and asthma. Patient also states over the last couple days he has had some vertigo symptoms in the morning. Patient also is been having for the last month or so some discomfort in his left shoulder that is worse with movement. He denies any chest pain or shortness of breath out of the ordinary. He denies recent illness otherwise. No exposures to COVID-19.] Pain is not pleuritic. He has no respiratory symptoms. Physical Examination: [HEENT-PERRLA, EOMI. Cranial nerves II through XII grossly intact. TMs clear. Mucous membranes moist. No adenopathy. Cardiovascular-regular rate and rhythm without murmur or ectopy Lungs-clear to auscultation, chest wall stable without crepitus or subcu emphysema Abdomen-normoactive bowel sounds, soft, nontender, no rebound or rigidity, no peritoneal signs. Back exam-patient does have a midline incision over the lumbar spine and measures approximately 8 cm in length. He has no tenderness on palpation of the thoracic or lumbar spine. Patient does have some tenderness over the right lumbar paraspinal musculature that seems to reproduce his pain. Negative straight leg raises bilaterally. Deep tendon reflexes are diminished bilaterally at the patella and Achilles plus 1 out of 4. Normal L5 extension bilaterally. Sensation to light touch. Extremities-intact ?4, normal range of motion, normal pulses, atraumatic] Test Results: [CBC with differential obtained showed a white count of 8.0, hemoglobin 16, hematocrit 49, platelets 264. Chemistries unremarkable. Liver enzymes were normal. Urinalysis was normal. Troponin was less than 0.015. Glucose was elevated at 245.] Emergency Department Course and Treatment: [IV line established. Patient was medicated with Dilaudid 1 mg IV and Zofran 4 mg IV. I do not feel any further imaging is indicated given that patient recently had a CT scan of the abdomen pelvis. He has had no bony tenderness on exam. His pain is reproducible of the lumbar paraspinal musculature.] Treatment Plan: [Patient will be given a prescription for [place] and Flexeril. Patient advised to follow-up with his primary care physician within next 3 to 5 days. Patient advised to return if worsening pain, weakness in extremities, change in bowel or bladder function, or condition should worsen anyway.] Disposition: [Discharged home in stable condition] Impression: [Back pain-atraumatic] This note was generated with [employer] dictation software. It may contain incorrect words, spelling, and punctuation that were not noted in review of the chart prior to signing ED Disposition - Plan for ED Patient: Referrals: Wali Reynaga MD [Primary Care Provider] -
[2019-12-12] MEDS: 0.9% Normal Saline 1,000 ML 150 ML IV (10:10)
[2019-12-12] MEDS: HYDROmorphone 1 MG/ML Syringe IV (10:10)
[2019-12-12] MEDS: Ondansetron 4 MG/2 ML Vial IV (10:10)
[2019-12-12 10:28] LABS: Absolute Lymphocyte Count 2.02 X10^3/uL (0.83-4.51); Basophil# 0.06 X10^3/uL; Basophil% 0.8 % (0-1); Eosinophil# 0.39 X10^3/uL; Eosinophils% 4.9 % (0-5); Hematocrit 49.3 % (40-54); Hemoglobin 16.6 g/dL (13.0-16.5); Lymphocyte # 2.02 X10^3/ul (4.0); Lymphocyte % 25.3 % (19-41); Mean Corp Hgb Conc 33.7 g/dL (32-36); Mean Corpuscular Hgb 29.7 pg (27.0-32.0); Mean Corpuscular Volume 88.2 fL (80-94); Mean Platelet Vol. 11.1 fl (6.2-12.0); Monocyte# 0.49 X10^3/uL; Monocyte% 6.1 % (0-10); NRBC Flagged by Analyzer 0 % (0-5); Neutrophil # 5.01 X10^3/uL (2.7-7.7); Neutrophil % 62.5 % (47-70); Platelet Count 264 K/mm3 (150-450); RBC Distribution Width CV 12.8 % (11.6-14.6); RBC Distribution Width SD 41.5 fl (35.1-43.9); Red Blood Count 5.59 M/mm3 (4.6-6.2)
[2019-12-12 10:35] LABS: Mucous, Urine 0 SEEN /hpf (<or=2+); Red Blood Cells-Urine 0 SEEN /hpf (0-5); Squamous Epithelial Cells - UA 0 SEEN /hpf (0-5); White Blood Cells 0 SEEN /hpf (0-5)
[2019-12-12 10:49] LABS: Color, Urine Yellow (Yellow); Glucose, Dipstick 1000 mg/dl (Normal); Ketone-Dipstick 5 mg/dl (Negative); Leukocyte Esterase-Dipstick Negative /ul (Negative); Nitrite-Dipstick Negative (Negative); Occult Blood-Urine Negative /ul (Negative); Protein-Dipstick 15 mg/dl (Negative); Urine Bilirubin Dipstick Negative (Negative); Urine Clarity Clear (Clear); Urine Urobilinogen Normal (Normal)
[2019-12-12 10:58] LABS: Bacteria RARE /hpf (None Seen)
[2019-12-12 11:06] LABS: BUN 8 mg/dL (7-18); Glucose 244 mg/dL (74-106)
[2019-12-12 11:07] LABS: AST(SGOT) 11 U/L (15-37); Alanine Aminotransfer ALT/SGPT 26 U/L (16-61); Albumin, Serum 3.5 g/dL (3.2-5.0); Alkaline Phosphatase 63 U/L (45-117); Anion Gap 4 (5-15); Calcium,Total 8.9 mg/dL (8.5-10.1); Chloride 104 mmol/L (98-107); Creatinine, Serum 0.83 mg/dL (0.70-1.30); Estimated Creatinine Clearance 131.15 ml/min; Globulin 3.6 g/dL (2.2-4.2); Potassium 4.3 mmol/L (3.5-5.1); Protein, Total 7.1 g/dL (6.4-8.2); Sodium Level 137 mmol/L (136-145)
--- NOTE | 2019-12-12 11:18 | ED.DEP ---
ED Disposition - Plan for ED Patient: Instructions: ED Spasm Back No Trauma Prescriptions: cycloBENZAPRine HCl [Flexeril] 10 mg PO TID PRN #20 tab PRN Reason: Muscle Spasm Prescription Printed Naproxen [Naprosyn] 500 mg PO BID PRN #20 tab Prescription Printed Hydrocodone Bitart/Apap 5-325 [[place] 5MG-325MG] 1 tab PO Q4H PRN PRN 2 Days #20 tab PRN Reason: Pain Prescription Printed Referrals: Wali Reynaga MD [Primary Care Provider] - 3-5 Days
[2019-12-12 11:20] LABS: BUN/Creat Ratio 9.7 RATIO (10-20); EST Glomerular Filtration Rate 109 mL/min (>60); Est Glom Filt Rate - Afr Amer 132 mL/min (>60)
[2019-12-12 11:33] VITALS: BP 135/100; PULSE 75; RESP 16; O2SAT 98
== END 2019-12-12 11:35 | disposition home or self-care (01) ==
PROVIDERS: Emergency Provider Emergency Medicine; PCP Family Medicine
DX: M54.5 Low back pain (principal); I25.10 Atherosclerotic heart disease of native coronary artery without angina pectoris; F17.200 Nicotine dependence, unspecified, uncomplicated; J45.909 Unspecified asthma, uncomplicated; E11.9 Type 2 diabetes mellitus without complications; Z79.4 Long term (current) use of insulin
CPT/HCPCS: 80053; 81001; 84484; 85025; 93005; 96361; 96374; 96375; 99283; J7030; J2405

== ENCOUNTER 2020-01-02 16:42 | Emergency (ER) | payer MEDICAID, SELFPAY ==
[2016-12-11 11:39] VITALS: BMI 38.3
[2020-01-02 16:42] VITALS: BP 159/104; PULSE 93; RESP 16; TEMP 36.4; O2SAT 100; BMI 36.2
--- NOTE | 2020-01-02 17:16 | ED.VISSUMM ---
- ER Visit Summary Date of Service: 01/02/20 Chief Complaint: Low back pain History of Present Illness: The patient is a 39 M who presents with low back pain that has been constant for the past month. Patient states it is over his right lower lumbar area. Patient states the pain radiates into his right hip. Patient describes the pain as burning and pressure. Patient states the pain is worse with movement and bending. Patient denies any paresthesias or weakness. Patient denies any abdominal pain. Patient denies any dysuria. Patient denies any urinary or stool incontinence. Patient denies any saddle anesthesia. Patient states he was referred to pain management but is unable to get into see them. Patient states he was also considering returning to his neurosurgeon Dr. East in [place]. Physical Examination: Vital signs are stable. Patient is afebrile. Patient is in no acute distress. Musculoskeletal exam reveals tenderness over the right lumbar paraspinal muscles. There is no midline tenderness. There is no bony crepitance or step-off. Range of motion was limited in all motions of the lumbar spine secondary to pain. Strength is 5/5 bilaterally lower extremities. There are no sensory deficits noted. Deep tendon reflexes are 2/4 bilateral in the lower extremities. Posterior tibial pulses are equal bilaterally. Emergency Department Course and Treatment: Patient was given an injection of morphine here. Patient was given a prescription for short course of [place]. Patient was instructed to follow-up with his primary care physician in 3 to 5 days. Patient was also given a referral for orthopedic spine surgeon. Patient was also advised that he could follow-up with his neurosurgeon if he would prefer. Patient understood and was agreeable with the plan. All questions were answered. Disposition: Discharge home Impression: 1. Acute low back pain This note was generated with [employer] dictation software. It may contain incorrect words, spelling, and punctuation that were not noted in review of the chart prior to signing ED Disposition - Plan for ED Patient: Disposition: Home or Assisted Living Diagnosis: Acute low back pain Instructions: ED Back Pain Acute or Chronic Prescriptions: Hydrocodone Bitart/Apap 5-325 [[place] 5MG-325MG] 1 tab PO Q6H PRN PRN 3 Days #10 tab PRN Reason: Pain Prescription Printed Referrals: Wali Reynaga MD [Primary Care Provider] - 3-5 Days Keith Lujan DO [STAFF PHYSICIAN] - 5-7 Days
[2020-01-02] MEDS: Morphine 4 MG/ML Syringe IM (17:22)
[2020-01-02 17:32] VITALS: BP 134/103; PULSE 83; RESP 18; O2SAT 99
[2020-01-02 17:46] VITALS: BP 134/103; PULSE 83; RESP 18
== END 2020-01-02 17:46 | disposition home or self-care (01) ==
PROVIDERS: Emergency Provider Emergency Medicine; PCP Family Medicine
DX: M54.5 Low back pain (principal); E11.9 Type 2 diabetes mellitus without complications; J45.909 Unspecified asthma, uncomplicated; F17.200 Nicotine dependence, unspecified, uncomplicated
CPT/HCPCS: 96372; 99283

== ENCOUNTER 2020-01-06 15:40 | Emergency (ER) | payer MEDICAID, SELFPAY ==
[2016-12-11 11:39] VITALS: BMI 38.3
[2020-01-06 15:41] VITALS: BP 159/108; PULSE 113; RESP 17; TEMP 36.6; O2SAT 99; BMI 35.2
--- NOTE | 2020-01-06 16:33 | ED.DCSUM_ITS ---
- ER Visit Summary Date of Service: 01/06/20 Chief Complaint: Back pain History of Present Illness: The patient is a 39 M who reports that she has low back pain began approximately 6 weeks ago. It is a continuous sharp pain is 10 of 10 at worst and 6 out of 10 currently. Is worsened by movement or bending. He is taking [place] without relief. He denies any revision to his legs. No numbness or weakness in his legs. No problems with his bowels or his bladder. No groin numbness. He denies red flags. Patient denies any recent injury. He had an L2-L5 discectomy [place] [address] Kelly at [facility]. He has an appointment to see him January 29. He has not had an MRI since this began. Physical Examination: Vitals: Stable. Afebrile. General: A&O x 3. NAD. Cardiovascular exam: Regular rate and rhythm, no murmur, rub or gallop. Respiratory exam: Clear to auscultation bilaterally. No wheezes or stridor. Abdominal exam: Soft, nontender, nondistended, normal bowel sounds. No peritoneal signs. Back: Diffuse moderate tenderness to palpation over the lumbar spine and the paraspinous musculature in the lumbar region. No point tenderness. Negative straight leg bilaterally. 5/5 DF, PF, EHL bilaterally. Normal sensation to light touch throughout. Extremity: No clubbing, cyanosis, or edema. Emergency Department Course and Treatment: An OAR[facility] report was obtained which shows he had a prescriptions for opiates in the past year. However, the majority of these have been in the past 6 weeks since his pain worsened. Patient was given a dose of morphine and Toradol IM. Treatment Plan: I discussed the patient that he does need an MRI of his back and that the neurosurgeon will likely want this prior to his visit. He is instructed to follow-up with Dr. Yonas Davis and/or Dr. Mahajan as soon as possible. He is given a prescription for 20 Percocet. The signs and symptoms of cauda equina syndrome were discussed and he was instructed to return for these. Disposition: To home in improved and stable condition. Impression: 1. Low back pain. This note was generated with [employer] dictation software. It may contain incorrect words, spelling, and punctuation that were not noted in review of the chart prior to signing ED Disposition - Plan for ED Patient: Instructions: ED Back Pain Acute or Chronic Prescriptions: Oxycodone HCl/Acetaminophen [Percocet 5/325] 1 tab PO Q6H PRN PRN 5 Days #20 tab PRN Reason: Pain Score 6-10 Prescription Printed Referrals: Yonas Davis MD [STAFF PHYSICIAN] - As soon as possible Skye Montanez MD [STAFF PHYSICIAN] - As soon as possible
[2020-01-06] MEDS: morphine 8 MG/ML Syringe IM (16:49)
[2020-01-06] MEDS: Ketorolac 30 MG/ML Syringe IM (16:49)
[2020-01-06 17:22] VITALS: BP 148/93; PULSE 103; RESP 18; O2SAT 100
--- NOTE | 2020-01-06 17:23 | ED.RN ---
PT EDUCATED ON WRITTEN AND VERBAL DISCHARGE INSTRUCTIONS AND HOME GOING PRESCRIPTIONS. EDUCATED NOT TO DRIVE WHEN TAKING NARCOTIC MEDICATION AND RETURN TO ED FOR ANY NEW OR WORSENED SX. PT VERBALIZES UNDERSTANDING AND DENIES FURTHER QUESTIONS. REPORTS IS IN PARKING LOT TO DRIVE HIM HOME. AMBULATES OUT OF DEPT ALONE.
== END 2020-01-06 17:27 | disposition home or self-care (01) ==
LOC: ED 16:17
PROVIDERS: Emergency Provider Emergency Medicine
DX: M54.5 Low back pain (principal); I25.10 Atherosclerotic heart disease of native coronary artery without angina pectoris; J45.909 Unspecified asthma, uncomplicated; E10.9 Type 1 diabetes mellitus without complications; E78.00 Pure hypercholesterolemia, unspecified; F17.210 Nicotine dependence, cigarettes, uncomplicated
CPT/HCPCS: 96372; 99282

== ENCOUNTER 2020-01-12 18:25 | Emergency (ER) | payer MEDICAID, SELFPAY ==
[2016-12-11 11:39] VITALS: BMI 38.3
[2020-01-12 18:26] VITALS: BP 161/96; PULSE 105; RESP 18; TEMP 36.3; O2SAT 100; BMI 36.6
--- NOTE | 2020-01-12 18:53 | ED.VISSUMM ---
- ER Visit Summary Date of Service: 01/12/20 Chief Complaint: Back pain History of Present Illness: The patient is a 39 M who reports that he had a laminectomy of L2-L5 by Dr. Kelly in 2013. States that he began having back pain again approximately 2 months ago. Is gradually worsened. Is a continuous sharp pain is 10 of 10 at worst and 7-10 currently. Is worsened by movement and bending. Is minimally relieved by Percocet. Patient denies any trauma. No fall, MVA, or change in activity. He denies any numbness or weakness. There is no radiation to his legs. No problems with his bowels or his bladder. No groin numbness. Patient denies red flags. Physical Examination: Vitals: Stable. Afebrile. General: A&O x 3. NAD. Cardiovascular exam: Regular rate and rhythm, no murmur, rub or gallop. Respiratory exam: Clear to auscultation bilaterally. No wheezes or stridor. Abdominal exam: Soft, nontender, nondistended, normal bowel sounds. No peritoneal signs. Back: Diffuse moderate tenderness to palpation over the lumbar spine and the paraspinous musculature in the lumbar region. No point tenderness. Negative straight leg bilaterally. 5/5 DF, PF, EHL bilaterally. Normal sensation to light touch throughout. Extremity: No clubbing, cyanosis, or edema. Emergency Department Course and Treatment: An OARRS report was obtained which shows since November 08 the patient has had 7 prescriptions for opiate-based medications. I had a prolonged discussion with him about this. States that he has an appointment to see Dr. Kelly January 29 and is trying to get an MRI prior to that. He is called Dr. Montanez and is having his paperwork faxed over from Dr. Reynaga. States that he does not want to be in pain management long-term. We did discuss that he needs to have management of his pain by a single physician whether that be a primary care physician or pain management until he is able to see Dr. Kelly. He does understand this. He was treated with 2 oxycodone here. Treatment Plan: Patient will be discharged prescription for 20 Percocet. I discussed him that it is not appropriate to come to the emergency department for management of his chronic back pain. However, the signs and symptoms of cauda equina syndrome were discussed and he was instructed to return for these. Disposition: To home in improved and stable condition. Impression: 1. Back pain. This note was generated with [employer] dictation software. It may contain incorrect words, spelling, and punctuation that were not noted in review of the chart prior to signing ED Disposition - Plan for ED Patient: Disposition: Home or Assisted Living Instructions: ED Back Pain Acute or Chronic Prescriptions: Oxycodone HCl/Acetaminophen [Percocet 5/325] 1 tab PO Q6H PRN PRN 5 Days #20 tab PRN Reason: Pain Score 6-10 Prescription Printed Referrals: Yonas Davis MD [STAFF PHYSICIAN] - As soon as possible Skye Montanez MD [STAFF PHYSICIAN] - As soon as possible
[2020-01-12] MEDS: oxyCODONE 5 MG Tablet 10 MG PO (19:02)
[2020-01-12 19:05] VITALS: RESP 17
== END 2020-01-12 19:06 | disposition home or self-care (01) ==
LOC: ED 19:04
PROVIDERS: Emergency Provider Emergency Medicine
DX: M54.9 Dorsalgia, unspecified (principal); E10.9 Type 1 diabetes mellitus without complications; I25.10 Atherosclerotic heart disease of native coronary artery without angina pectoris
CPT/HCPCS: 99282

== ENCOUNTER → 2020-01-24 17:33 | Outpatient (CLI) | payer MEDICAID, SELFPAY ==
[2016-12-11 11:39] VITALS: BMI 38.3
[2020-01-12 18:26] VITALS: BMI 36.6
--- NOTE | 2020-01-24 17:45 | RAD_ITS ---
STUDY: X-RAY - LEFT SHOULDER REASON FOR EXAM: Male, 39 years old. LEFT SHOULDER PAIN FOR 8 MONTHS. NO INJURY. TECHNIQUE: 4 view(s) of the shoulder. COMPARISON: None. FINDINGS: Normal glenohumeral articulation. Normal acromioclavicular joint. Normal acromion. Normal humeral head and visualized proximal humerus. The soft tissue structures are unremarkable. Normal visualized pulmonary apex. RAD/Shoulder min 2 Views IMPRESSION: Normal x-ray examination of the shoulder. Electronically Signed: Leandro Urena, at 10:38 EST , Service support ,
[2020-01-24 18:46] LABS: Amphetamine Urine VISTA NEGATIVE (<1000 ng/mL); Barbiturate Urine VISTA NEGATIVE (< 200 ng/mL); Benzodiazepine Urine VISTA NEGATIVE (< 200 ng/mL); Cocaine Urine VISTA NEGATIVE (< 300 ng/mL); Ecstacy Urine VISTA NEGATIVE (< 500 ng/mL); Methadone Urine VISTA NEGATIVE (< 300 ng/mL); PCP Urine VISTA NEGATIVE (< 25 ng/mL); THC Urine VISTA NEGATIVE (< 50 ng/mL); Vista UDS pH Range 5
== END ==
PROVIDERS: Visit Provider Anesthesiology Pain Medicine
DX: F11.20 Opioid dependence, uncomplicated (principal); M25.512 Pain in left shoulder
CPT/HCPCS: 73030; 80307

== ENCOUNTER → 2020-03-08 15:06 | Outpatient (CLI) | payer MEDICAID, SELFPAY ==
[2016-12-11 11:39] VITALS: BMI 38.3
--- NOTE | 2020-03-08 15:11 | MRI_ITS ---
STUDY: MRI LUMBAR SPINE WITH AND WITHOUT CONTRAST REASON FOR EXAM: Male, 40 years old. Post op L-2 THRU L-5 DDD TECHNIQUE: Standardized fat and water weighted pulse sequences were obtained in the sagittal and axial planes. DOTAREM IV 25CC was administered for the contrast portion of the examination. COMPARISON: 09/04/2014 FINDINGS: T12-L1: Normal endplates. Normal disc height, hydration and morphology. Normal bilateral facet joints. Normal central canal and bilateral lateral recesses. Normal bilateral intervertebral neural foramina. Normal lumbar lordosis. There is no substantial scoliosis. Normal conus medullaris that terminates at the T12/L1. L1-2: Normal endplates. Normal disc height, hydration and morphology. Normal bilateral facet joints. Normal central canal and bilateral lateral recesses. Normal bilateral intervertebral neural foramina. L2-3: Normal endplates. Normal disc height, hydration and morphology. Normal bilateral facet joints. Normal central canal and bilateral lateral recesses. Normal bilateral intervertebral neural foramina. L3-4: Status post posterior decompression. No change in the 5 mm retrolisthesis of L3 on L4. Continued moderate broad disc protrusion but an enlarging left paracentral and preforaminal extrusion measuring 10 mm producing moderate spinal stenosis with mild right lateral recess stenosis but moderate left lateral recess stenosis with abutment of the left L4 nerve root which is new with mild bilateral neural foraminal stenosis. L4-5: Status post posterior decompression. No change in the mild broad disc protrusion which produces mild spinal stenosis and mild bilateral neural foraminal stenosis. L5-S1: Status post posterior decompression. No change in the moderate broad disc protrusion which produces moderate spinal stenosis with moderate bilateral lateral recess stenosis with abutment of the S1 nerve roots bilaterally and moderate bilateral neural foraminal stenosis with abutment of the exiting L5 nerve root laterally. Normal visualized sacral ala. Normal visualized paraspinous soft tissue structures. There is no demonstrated abnormal enhancement. MRI/Spine Lumbar W/WO Contrast IMPRESSION: Worsening degenerative disc disease at L3/L4 with interval development of a large left paracentral and preforaminal extrusion producing moderate left lateral recess stenosis with abutment of the left L4 nerve root. Electronically Signed: Mauro Cobb MD at 17:58 EST Tel , Service support ,
== END ==
DX: M51.36 Other intervertebral disc degeneration, lumbar region (principal)
CPT/HCPCS: 72158; A9575

== ENCOUNTER → 2020-03-20 14:10 | Outpatient (CLI) | payer MEDICAID, SELFPAY ==
[2016-12-11 11:39] VITALS: BMI 38.3
--- NOTE | 2020-03-20 14:27 | RAD_ITS ---
STUDY: X-RAY - LUMBAR SPINE REASON FOR EXAM: Male, 40 years old. DEGENERATIVE DISC LUMBAR REGION. CURRENTLY HAVING PAIN AROUND BOTH HIPS AND LOW BACK PAIN. HAD SURGERY IN 2013 ON L2-L5 . 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 COMPARISON: None FINDINGS: Normal lumbar lordosis. There is no substantial scoliosis. There is a normal alignment of the vertebrae. There is multilevel endplate spondylosis of the lumbar vertebrae. The patient is status post laminectomy at the L3-L4, L4-L5 and L5-S1 levels. Mild degree of disc space narrowing at the L3-L4, L4-L5 and L5-S1 levels. The soft tissue structures are unremarkable. RAD/L/S Spine Min 4 Views IMPRESSION: Degenerative changes of the spine, as detailed above. Status post laminectomy at the L3-L4, L4-L5 and L5-S1 levels. Electronically Signed: Leandro Urena MD at 15:45 EST , Service support ,
== END ==
DX: M51.36 Other intervertebral disc degeneration, lumbar region (principal)
CPT/HCPCS: 72110

== ENCOUNTER → 2020-06-12 15:25 | Outpatient (CLI) | payer MEDICAID, SELFPAY ==
[2016-12-11 11:39] VITALS: BMI 38.3
[2020-06-12 17:44] LABS: Amphetamine Urine VISTA NEGATIVE (<1000 ng/mL); Barbiturate Urine VISTA NEGATIVE (< 200 ng/mL); Benzodiazepine Urine VISTA NEGATIVE (< 200 ng/mL); Cocaine Urine VISTA NEGATIVE (< 300 ng/mL); Ecstacy Urine VISTA NEGATIVE (< 500 ng/mL); Methadone Urine VISTA NEGATIVE (< 300 ng/mL); PCP Urine VISTA NEGATIVE (< 25 ng/mL); THC Urine VISTA NEGATIVE (< 50 ng/mL); Vista UDS pH Range 5
== END ==
PROVIDERS: Referring Provider Anesthesiology Pain Medicine; Visit Provider Anesthesiology Pain Medicine
DX: F11.20 Opioid dependence, uncomplicated (principal)
CPT/HCPCS: 80307

== ENCOUNTER 2020-10-01 18:10 | Emergency (ER) | payer MEDICAID, SELFPAY ==
[2016-12-11 11:39] VITALS: BMI 38.3
[2020-10-01 08:37] VITALS: BMI 36.6
[2020-10-01 18:11] VITALS: BP 156/91; PULSE 78; RESP 18; TEMP 36.4; O2SAT 100; BMI 35.2
--- NOTE | 2020-10-01 18:41 | EDS_ITS ---
HPI History of Present Illness Chief Complaint: Dental Informant: patient Narrative Narrative: Increasing left lower dental pain today. Broken tooth a month ago mild discomfort 2 days ago today unbearable. Saw now clinic started on Augmentin status post 1 dose. Was told to go to ED if symptoms worsen. He is currently on Percocet for back pain followed by pain management. He states he has 1 dose left however his appointment is tomorrow for refills. He wanted comfort relief therefore came here. Hot and cold sensitivities. No trouble swallowing. No fevers. He states he does have a dentist he will call tomorrow. Prior similar symptoms: Yes PFSH PFSH Medical History Anxiety Atherosclerotic heart disease of [place] coronary artery without angina pectoris Depression Diabetic nephropathy Dyslipidemia HLD (hyperlipidemia) Hypertension Mild intermittent asthma Morbid obesity with BMI of 40.0-44.9, adult Simple obesity Tobacco user Type 2 diabetes mellitus Home Medications albuterol sulfate 1 - 2 puff INHALATION Q4H PRN PRN 03/04/16 [History Last Taken 05/24/19] insulin detemir U-100 100 unit SQ DAILY 12/12/19 [History Last Taken Unknown] meloxicam 7.5 mg tablet 7.5 mg PO DAILY tablet 06/10/20 [History Last Taken Unknown] tizanidine 4 mg tablet 4 mg PO BID tablet 06/10/20 [History Last Taken Unknown] amoxicillin 875 mg-potassium clavulanate 125 mg tablet 1 tab PO Q12H 10 Days #20 tab 10/01/20 [Rx Last Taken Unknown] oxycodone-acetaminophen 1 tab PO BID 10/01/20 [History Last Taken Unknown] Allergy/AdvReac Type Severity Reaction Status Date / Time lisinopril Allergy Other Verified 10/01/20 18:13 niacin Allergy Other Verified 10/01/20 18:13 poison emma extract Allergy Unknown Verified 10/01/20 18:13 honey bee venom Allergy Unknown Unknown Uncoded 10/01/20 18:13 HENDRICKS DYE Allergy Chest Uncoded 10/01/20 18:13 tightness POLLEN Allergy Shortness Uncoded 10/01/20 18:13 of breath Family History Sister No problems noted. Mother Kidney disease Father Diabetes Brother Diabetes Surgical History Amputation of left index finger (~1999) H/O lumbosacral spine surgery (~2013) History of vasectomy (~2007) Postsurgical percutaneous transluminal coronary angioplasty (PTCA) status (~12/11/16) Presence of stent in coronary artery (~12/11/16) Social History Smoking Status: Current every day smoker tobacco type: cigarettes second hand exposure: Yes quit status: considering quitting alcohol intake: current alcohol intake frequency: holidays/special occasions only Alcohol type: beer substance use type: does not use caffeine: No what type of physical activity do you participate in: walking frequency: 3-4 times per week duration: 15-30 minutes/day seatbelt use: always do you feel safe at home: Yes ROS ROS ED Constitutional Constitutional ED: Denies chills, fever(s) or sweats Eyes Eyes: Denies change in vision ENT ENT ED: Reports other Details: Left lower dental pain ; Denies dysphagia or sore throat Cardiovascular Cardiovascular: Denies chest pain, leg edema, palpitations or racing heartbeat Respiratory/Chest Respiratory/Chest: Denies cough, dyspnea or dyspnea on exertion Gastrointestinal Gastrointestinal: Denies abdominal pain, diarrhea, nausea or vomiting Genitourinary Genitourinary ED: Denies dysuria, hematuria or urinary frequency Musculoskeletal Musculoskeletal: Denies back pain, extremity pain or neck pain Integumentary Denies rash or wounds Neurologic Neurologic: Denies headache(s), paresthesias or weakness EXAM Physical Exam Const Vital Signs: 10/01/20 18:11 Temperature 97.5 F L Temperature Source Temporal Pulse Rate 78 Respiratory Rate 18 Blood Pressure 156/91 H Blood Pressure Mean 112 Pulse Ox 100 Oxygen Delivery Method Room Air Positive well nourished and well developed General Appearance ED: well developed and NAD HEENT Reports moist mucous membranes HEENT Narrative: Previously extracted tooth #19, decayed broken tooth #20. Tender to palpation. No sublingual edema. No fluctuance or focal abscess. Airway patent. normocephalic and atraumatic Eyes PERRL, EOMs intact bilaterally and conjunctivae normal General Eye ED: Yes normal appearance of both eyes Neck no lymphadenopathy and supple General: Negative for tenderness Chest Wall Chest: Negative for tenderness Resp normal respiratory effort and normal air movement Effort and Inspection: symmetric chest movement; Negative for respiratory distress Cardio regular rate, regular rhythm and no murmurs Peripheral Pulses: pulses 2+ throughout GI normal to inspection, nondistended, normoactive bowel sounds and non-tender Palpation: Negative for guarding or rebound tenderness present Back/Spine no CVA tenderness and no thoracic nor lumbar tenderness Extremity normal to inspection General Extremety ED: Negative for edema or tenderness General Extremity: Negative for edema Neuro oriented x3 and no sensory deficits noted Sensorium / Orientation: awake and alert Skin no rashes or lesions noted and no wounds MDM MDM MDM Narrative Medical decision making narrative: Patient does see pain management. Given the oxycodone in the ED. He is 1 left at home. He requested dental block which was performed with good success. He will continue his Augmentin. He will call his dentist tomorrow. He will keep his appointment with his pain management for refill of his Percocet. All questions answered. Discharge Plan Triage Chief Complaint: Dental ED Provider: Johnson Baum Dx/Rx/DC Orders Clinical Impression: Dentalgia Instructions: ED Dental Pain Prescriptions: No Action tizanidine 4 mg tablet 4 mg PO BID RF: 0 meloxicam 7.5 mg tablet 7.5 mg PO DAILY RF: 0 amoxicillin-pot clavulanate [Augmentin] 875-125 mg tablet 1 tab PO Q12H 10 Days Qty: 20 RF: 0 albuterol sulfate 1 INHALER inhaler 1 - 2 puff INHALATION Q4H PRN PRN (Reason: Sob &/Or Wheezing) RF: 0 insulin detemir U-100 100 UNIT/ML solution 100 unit SQ DAILY RF: 0 oxycodone-acetaminophen 5-325 mg tablet 1 tab PO BID RF: 0 Primary Care Provider: Care Physician,No Primary Referrals: Care Physician,No Primary [Primary Care Provider] - Activity Restrictions/Additional Instructions: Continue and finish your antibiotics. Continue ibuprofen every 6 hours. Follow-up with your pain doctor tomorrow for your refills of your Percocet. Call your dentist tomorrow for follow-up for definitive care. Disposition Disposition: Home, Self Care
[2020-10-01] MEDS: oxyCODONE 5 MG Tablet PO (18:46)
== END 2020-10-01 19:52 | disposition home or self-care (01) ==
PROVIDERS: Emergency Provider Emergency Medicine
DX: K08.89 Other specified disorders of teeth and supporting structures (principal); S02.5XXA Fracture of tooth (traumatic), initial encounter for closed fracture; F17.210 Nicotine dependence, cigarettes, uncomplicated; I25.10 Atherosclerotic heart disease of native coronary artery without angina pectoris; E11.21 Type 2 diabetes mellitus with diabetic nephropathy; E66.01 Morbid (severe) obesity due to excess calories; E78.5 Hyperlipidemia, unspecified; F41.9 Anxiety disorder, unspecified; I10 Essential (primary) hypertension; J45.20 Mild intermittent asthma, uncomplicated; Z68.41 Body mass index [BMI] 40.0-44.9, adult; Z79.1 Long term (current) use of non-steroidal anti-inflammatories (NSAID); Z79.4 Long term (current) use of insulin; Z79.899 Other long term (current) drug therapy
CPT/HCPCS: 64999; 99283

== ENCOUNTER 2020-10-02 02:16 | Emergency (ER) | payer MEDICAID, SELFPAY ==
[2016-12-11 11:39] VITALS: BMI 38.3
[2020-10-01 18:11] VITALS: BMI 35.2
[2020-10-02 02:19] VITALS: BP 169/90; PULSE 91; RESP 17; TEMP 35.9; O2SAT 99; BMI 36.6
[2020-10-02] MEDS: oxyCODONE 5 MG Tablet PO (03:40)
[2020-10-02 03:43] VITALS: RESP 16
--- NOTE | 2020-10-02 05:41 | EDS_ITS ---
HPI History of Present Illness Chief Complaint: General Illness Narrative Narrative: 40-year-old male presenting with left-sided dental pain. Patient was seen last evening for similar pain. He states that he was given oxycodone in the ED as well as a dental block. He took his Percocet at home and states that he is continuing to have pain. Patient is in pain management and states that he has a follow-up appointment this morning for a refill of his pain medication but is out of this currently. He states that he has a friend who is an oral surgeon who took out one of his other teeth before and he tried to contact this person to have it removed however he has not heard back overnight. Patient has seen a dentist in the past however he does not currently have an appointment. He denies any difficulty with swallowing or breathing. [facility] Medical History Anxiety Atherosclerotic heart disease of [place] coronary artery without angina pectoris Depression Diabetic nephropathy Dyslipidemia HLD (hyperlipidemia) Hypertension Mild intermittent asthma Morbid obesity with BMI of 40.0-44.9, adult Simple obesity Tobacco user Type 2 diabetes mellitus Home Medications albuterol sulfate 1 - 2 puff INHALATION Q4H PRN PRN 03/04/16 [History Last Taken 05/24/19] insulin detemir U-100 100 unit SQ DAILY 12/12/19 [History Last Taken Unknown] meloxicam 7.5 mg tablet 7.5 mg PO DAILY tablet 06/10/20 [History Last Taken Unknown] tizanidine 4 mg tablet 4 mg PO BID tablet 06/10/20 [History Last Taken Unknown] amoxicillin 875 mg-potassium clavulanate 125 mg tablet 1 tab PO Q12H 10 Days #20 tab 10/01/20 [Rx Last Taken Unknown] oxycodone-acetaminophen 1 tab PO BID 10/01/20 [History Last Taken Unknown] Allergy/AdvReac Type Severity Reaction Status Date / Time lisinopril Allergy Other Verified 10/02/20 02:19 niacin Allergy Other Verified 10/02/20 02:19 poison emma extract Allergy Unknown Verified 10/02/20 02:19 honey bee venom Allergy Unknown Unknown Uncoded 10/01/20 18:13 HENDRICKS DYE Allergy Chest Uncoded 10/01/20 18:13 tightness POLLEN Allergy Shortness Uncoded 10/01/20 18:13 of breath Family History Sister No problems noted. Mother Kidney disease Father Diabetes Brother Diabetes Surgical History Amputation of left index finger (~1999) H/O lumbosacral spine surgery (~2013) History of vasectomy (~2007) Postsurgical percutaneous transluminal coronary angioplasty (PTCA) status (~12/11/16) Presence of stent in coronary artery (~12/11/16) Social History Smoking Status: Current every day smoker tobacco type: cigarettes second hand exposure: Yes quit status: considering quitting alcohol intake: current alcohol intake frequency: holidays/special occasions only Alcohol type: beer substance use type: does not use caffeine: No what type of physical activity do you participate in: walking frequency: 3-4 times per week duration: 15-30 minutes/day seatbelt use: always do you feel safe at home: Yes ROS ROS ED Constitutional Constitutional ED: Denies chills or fever(s) Eyes Eyes: Denies blurry vision or diplopia ENT ENT ED: Reports other Details: Left-sided dental pain ; Denies rhinorrhea or sore throat Cardiovascular Cardiovascular: Denies chest pain or palpitations Respiratory/Chest Respiratory/Chest: Denies cough or dyspnea Gastrointestinal Gastrointestinal: Denies abdominal pain, nausea or vomiting Genitourinary Genitourinary ED: Denies dysuria Musculoskeletal Musculoskeletal: Denies arthralgias or myalgias Integumentary Denies abscess or rash Neurologic Neurologic: Reports headache(s); Denies paresthesias or weakness EXAM Physical Exam Const Vital Signs: 10/02/20 02:19 10/02/20 02:22 10/02/20 03:43 Temperature 96.6 F L Temperature Source Temporal Pulse Rate 91 Respiratory Rate 17 16 Respiratory Pattern Normal Blood Pressure 169/90 H Blood Pressure Mean 116 Pulse Ox 99 Oxygen Delivery Method Room Air Positive well nourished General Appearance ED: NAD HEENT Reports moist mucous membranes HEENT Narrative: Focal decay at tooth #20 with percussion tenderness. No tongue swelling. Buccal mucosa appears normal. No sublingual edema. No posterior oropharyngeal erythema, no stridor. No submandibular fullness. Negative for trauma Eyes PERRL and EOMs intact bilaterally Neck no lymphadenopathy and supple Resp normal respiratory effort and clear to auscultation bilaterally Cardio regular rate and regular rhythm Neuro oriented x3 and CN's II-XII intact bilaterally Sensorium / Orientation: alert Psych mental status grossly normal Skin no rashes or lesions noted MDM MDM MDM Narrative Medical decision making narrative: Patient presenting for pain medication. He was seen last evening for similar pain. His vital signs are stable and he is afebrile. I do not see any evidence for Sandip's angina. Patient states that he will follow-up with his oral surgeon or dentist and is on Augmentin. Patient requesting pain medication x1 now and realizes that he cannot get a prescription as he is in pain management. He supposed to see his pain management doctor today to get a refill. Patient is given 1 oxycodone 5 mg in the ED. Patient is discharged home in stable condition. Impression: 1. Dentalgia Discharge Plan Triage Chief Complaint: General Illness ED Provider: Tray Gibbons Dx/Rx/DC Orders Instructions: ED Dental Abscess Prescriptions: No Action tizanidine 4 mg tablet 4 mg PO BID RF: 0 meloxicam 7.5 mg tablet 7.5 mg PO DAILY RF: 0 amoxicillin-pot clavulanate [Augmentin] 875-125 mg tablet 1 tab PO Q12H 10 Days Qty: 20 RF: 0 albuterol sulfate 1 INHALER inhaler 1 - 2 puff INHALATION Q4H PRN PRN (Reason: Sob &/Or Wheezing) RF: 0 insulin detemir U-100 100 UNIT/ML solution 100 unit SQ DAILY RF: 0 oxycodone-acetaminophen 5-325 mg tablet 1 tab PO BID RF: 0 Primary Care Provider: Care Physician,No Primary Referrals: Skye Montanez MD [STAFF PHYSICIAN] - As soon as possible Care Physician,No Primary [Primary Care Provider] - Disposition Disposition: Home, Self Care Discharge Date/Time: 10/02/20 03:43
== END 2020-10-02 03:43 | disposition home or self-care (01) ==
PROVIDERS: Emergency Provider Student in an Organized Health Care Education/Training Program
DX: K08.89 Other specified disorders of teeth and supporting structures (principal); F17.210 Nicotine dependence, cigarettes, uncomplicated; Z98.52 Vasectomy status; Z95.5 Presence of coronary angioplasty implant and graft; E11.21 Type 2 diabetes mellitus with diabetic nephropathy; E78.5 Hyperlipidemia, unspecified; F41.9 Anxiety disorder, unspecified; I10 Essential (primary) hypertension; I25.10 Atherosclerotic heart disease of native coronary artery without angina pectoris; E66.01 Morbid (severe) obesity due to excess calories; J45.20 Mild intermittent asthma, uncomplicated; Z68.41 Body mass index [BMI] 40.0-44.9, adult; Z79.1 Long term (current) use of non-steroidal anti-inflammatories (NSAID); Z79.4 Long term (current) use of insulin; Z79.899 Other long term (current) drug therapy
CPT/HCPCS: 99282

== ENCOUNTER 2020-12-26 15:11 | Emergency (ER) | payer MEDICAID, SELFPAY ==
[2016-12-11 11:39] VITALS: BMI 38.3
[2020-12-26 15:12] VITALS: BP 183/87; PULSE 103; RESP 16; TEMP 36.3; O2SAT 98; BMI 35.2
[2020-12-26 15:31] VITALS: O2SAT 97
[2020-12-26] MEDS: Ipratropium/Albuterol Sulfate 3 ML AMPUL.NEB INHALATION (15:41)
[2020-12-26 15:42] VITALS: PULSE 96; RESP 22
--- NOTE | 2020-12-26 15:44 | ED.VIS.DYS ---
HPI History of Present Illness Chief Complaint: Cold Sx Narrative Narrative: Patient presenting for evaluation secondary to respiratory illness. Patient states that he has a underlying history of intermittent asthma, when he gets an upper respiratory infection improves grasses to bronchitis. Patient states that he has been dealing with about 10 days worth of symptoms. Patient states that its been associated with a cough productive of some whitish sputum and occasional posttussive emesis. He denies any nausea or vomiting. Denies any diarrhea. Denies any body aches or fevers associated with it. Patient went to urgent care 2 days ago, had a negative coronavirus test and was started on steroids, and inhaler, and azithromycin. Patient tells me that whenever this happens he always needs a stronger antibiotic than azithromycin. He told me that when he had a primary care in the past that he typically would prescribe me some codeine as a cough suppressant so I could sleep [facility] Medical History Anxiety Atherosclerotic heart disease of [place] coronary artery without angina pectoris Depression Diabetic nephropathy Dyslipidemia HLD (hyperlipidemia) Hypertension Mild intermittent asthma Morbid obesity with BMI of 40.0-44.9, adult Simple obesity Tobacco user Type 2 diabetes mellitus Home Medications albuterol sulfate 1 - 2 puff INHALATION Q4H PRN PRN 03/04/16 [History Last Taken 05/24/19] insulin detemir U-100 100 unit SQ DAILY 12/12/19 [History Last Taken Unknown] meloxicam 7.5 mg tablet 7.5 mg PO DAILY tablet 06/10/20 [History Last Taken Unknown] tizanidine 4 mg tablet 4 mg PO BID tablet 06/10/20 [History Last Taken Unknown] oxycodone-acetaminophen 1 tab PO BID 10/01/20 [History Last Taken Unknown] albuterol sulfate 90 mcg/actuation aerosol inhaler 2 puff INHALATION Q6H PRN #8.5 g 12/24/20 [Rx Last Taken Unknown] azithromycin 250 mg tablet See Rx Instructions PO .COMPLEX #6 tab 12/24/20 [Rx Last Taken Unknown] ipratropium 0.5 mg-albuterol 3 mg (2.5 mg base)/3 mL nebulization soln 3 ml INHALATION Q4H 5 Days #90 ml 12/24/20 [Rx Last Taken Unknown] methylprednisolone 4 mg tablets in a dose pack 4 mg PO PER PKG DIR 5 Days #21 tab 12/24/20 [Rx Last Taken Unknown] amoxicillin-pot clavulanate [Augmentin] 1 tab PO BID #20 tab 12/26/20 [Rx Last Taken Unknown] benzonatate 200 mg PO TID PRN #15 cap 12/26/20 [Rx Last Taken Unknown] doxycycline hyclate 100 mg PO BID #20 cap 12/26/20 [Rx Last Taken Unknown] Allergy/AdvReac Type Severity Reaction Status Date / Time lisinopril Allergy Other Verified 12/26/20 15:14 niacin Allergy Other Verified 12/26/20 15:14 poison emma extract Allergy Unknown Verified 12/26/20 15:14 honey bee venom Allergy Unknown Unknown Uncoded 12/26/20 15:14 HENDRICKS DYE Allergy Chest Uncoded 12/26/20 15:14 tightness POLLEN Allergy Shortness Uncoded 12/26/20 15:14 of breath Family History Sister No problems noted. Mother Kidney disease Father Diabetes Brother Diabetes Surgical History Amputation of left index finger (~1999) H/O lumbosacral spine surgery (~2013) History of vasectomy (~2007) Postsurgical percutaneous transluminal coronary angioplasty (PTCA) status (~12/11/16) Presence of stent in coronary artery (~12/11/16) Social History Smoking Status: Current every day smoker tobacco type: cigarettes second hand exposure: Yes quit status: considering quitting alcohol intake: current alcohol intake frequency: holidays/special occasions only Alcohol type: beer substance use type: does not use caffeine: No what type of physical activity do you participate in: walking frequency: 3-4 times per week duration: 15-30 minutes/day seatbelt use: always do you feel safe at home: Yes ROS ROS ED Constitutional Constitutional ED: Denies chills or fever(s) ENT ENT ED: Denies rhinorrhea Cardiovascular Cardiovascular: Denies chest pain Respiratory/Chest Respiratory/Chest: Reports cough, dyspnea and sputum Gastrointestinal Gastrointestinal: Reports vomiting Genitourinary Genitourinary ED: Denies dysuria or hematuria Musculoskeletal Musculoskeletal: Denies back pain Integumentary Denies rash Neurologic Neurologic: Denies paresthesias or weakness Psychiatric Psychiatric: Denies depression Endocrine Endocrinology: Denies fatigue Allergic/Immunologic Allergic/Immunologic ED: Denies urticaria EXAM Physical Exam Const Vital Signs: 12/26/20 15:12 12/26/20 15:31 12/26/20 15:42 Temperature 97.4 F L Temperature Source Temporal Pulse Rate 103 H 96 Respiratory Rate 16 22 H Respiratory Effort Normal Respiratory Depth Normal Respiratory Pattern Normal Tachypnea Blood Pressure 183/87 H Blood Pressure Mean 119 Pulse Ox 98 Oxygen Delivery Method Room Air Room Air Positive well nourished and well developed General Appearance ED: well developed and NAD HEENT Reports moist mucous membranes Negative for trauma or tenderness Eyes EOMs intact bilaterally Neck no lymphadenopathy, supple and no JVD Chest Wall inspection of chest normal Resp normal respiratory effort Auscultation: wheezes Cardio regular rate, regular rhythm, no murmurs and peripheral pulses 2+ throughout GI normal to inspection, nondistended, normoactive bowel sounds, non-tender and no masses Palpation: soft Back/Spine normal to inspection Extremity normal to inspection General Extremety ED: Negative for tenderness Neuro oriented x3 and no sensory deficits noted Sensorium / Orientation: alert Motor Exam: strength 5/5 throughout Psych mental status grossly normal Skin no rashes or lesions noted MDM MDM MDM Narrative Medical decision making narrative: Patient is presenting secondary to respiratory illness. Patient had wheezing on arrival he was given a DuoNeb breathing treatment. He had a negative coronavirus test 2 days ago, this will not be repeated. Chest x-ray was ordered. Chest x-ray by my personal review as well as radiology shows a left lingular infiltrate. Patient had modest improvement on repeat evaluation after breathing treatment. Patient does not require inpatient management of his pneumonia. Patient's antibiotic regimen will be changed to Augmentin and doxycycline as that is the current outpatient treatment regimen recommendation. Will be sent home with a course of Tessalon. He is instructed to follow-up. He will be given a primary care physician with which to follow-up. Radiography Diagnostic Testing: Clinical Impression(s) from Imaging Studies Chest X-Ray 12/26/20 16:10 IMPRESSION: Early lingular infiltrate. Electronically Signed: Finesse Banks MD (Brooks) at 16:20 EST , Service support , Discharge Plan Triage Chief Complaint: Cold Sx ED Provider: Kash Myles Dx/Rx/DC Orders Clinical Impression: Community acquired pneumonia Instructions: ED Pneumonia (Adult) Prescriptions: New amoxicillin-pot clavulanate [Augmentin] 875-125 mg tablet 1 tab PO BID Qty: 20 RF: 0 doxycycline hyclate 100 mg capsule 100 mg PO BID Qty: 20 RF: 0 benzonatate 200 mg capsule 200 mg PO TID PRN (Reason: cough) Qty: 15 RF: 0 No Action tizanidine 4 mg tablet 4 mg PO BID RF: 0 meloxicam 7.5 mg tablet 7.5 mg PO DAILY RF: 0 azithromycin 250 mg tablet See Rx Instructions PO .COMPLEX Qty: 6 RF: 0 methylprednisolone [Medrol (Naresh)] 4 mg tablets,dose pack 4 mg PO PER PKG DIR 5 Days Qty: 21 RF: 0 albuterol sulfate 90 mcg/actuation HFA aerosol inhaler 2 puff inhalation Q6H PRN (Reason: shortness of breath or wheezing) Qty: 8.5 RF: 0 ipratropium-albuterol 0.5 mg-3 mg(2.5 mg base)/3 mL solution for nebulization 3 ml inhalation Q4H 5 Days Qty: 90 RF: 0 albuterol sulfate 1 INHALER inhaler 1 - 2 puff INHALATION Q4H PRN PRN (Reason: Sob &/Or Wheezing) RF: 0 insulin detemir U-100 100 UNIT/ML solution 100 unit SQ DAILY RF: 0 oxycodone-acetaminophen 5-325 mg tablet 1 tab PO BID RF: 0 Primary Care Provider: Care Physician,No Primary Referrals: Amber Powers MD [STAFF PHYSICIAN] - 3-5 Days Care Physician,No Primary [Primary Care Provider] - Disposition Disposition: Home, Self Care
--- NOTE | 2020-12-26 16:10 | RAD_ITS ---
STUDY: X-RAY CHEST REASON FOR EXAM: Male, 40 years old. cough and chest congestion x 10 days TECHNIQUE: PA and lateral views of the chest. COMPARISON: 05/24/2019 FINDINGS: Ill-defined opacity in the lingula is new. There is no demonstrated pleural abnormality. Normal size heart. Normal mediastinum and junior. Normal visualized pulmonary arteries. Normal visualized aortic arch and descending thoracic aorta. Normal visualized thoracic spine. Normal visualized ribs, clavicles, and shoulders. There is no demonstrated abnormality of the visualized soft tissue structures of the upper abdomen. RAD/Chest PA and Lateral IMPRESSION: Early lingular infiltrate. Electronically Signed: Finesse Banks MD ([place]) at 16:20 EST , Service support ,
== END 2020-12-26 16:43 | disposition home or self-care (01) ==
PROVIDERS: Emergency Provider Emergency Medicine
DX: J18.9 Pneumonia, unspecified organism (principal); E11.21 Type 2 diabetes mellitus with diabetic nephropathy; E78.5 Hyperlipidemia, unspecified; F32.A Depression, unspecified; F41.9 Anxiety disorder, unspecified; I10 Essential (primary) hypertension; I25.10 Atherosclerotic heart disease of native coronary artery without angina pectoris; J45.20 Mild intermittent asthma, uncomplicated; F17.210 Nicotine dependence, cigarettes, uncomplicated; Z79.1 Long term (current) use of non-steroidal anti-inflammatories (NSAID); Z79.4 Long term (current) use of insulin; Z95.5 Presence of coronary angioplasty implant and graft
CPT/HCPCS: 71046; 94640; 99282

== ENCOUNTER → 2021-02-05 10:24 | Outpatient (CLI) | payer MEDICAID, SELFPAY ==
[2016-12-11 11:39] VITALS: BMI 38.3
[2021-02-05 11:15] LABS: Amphetamine Urine VISTA NEGATIVE (<1000 ng/mL); Barbiturate Urine VISTA NEGATIVE (< 200 ng/mL); Benzodiazepine Urine VISTA NEGATIVE (< 200 ng/mL); Cocaine Urine VISTA NEGATIVE (< 300 ng/mL); Ecstacy Urine VISTA NEGATIVE (< 500 ng/mL); Methadone Urine VISTA NEGATIVE (< 300 ng/mL); PCP Urine VISTA NEGATIVE (< 25 ng/mL); THC Urine VISTA NEGATIVE (< 50 ng/mL); Vista UDS pH Range 5
== END ==
PROVIDERS: Referring Provider Anesthesiology Pain Medicine; Visit Provider Anesthesiology Pain Medicine
DX: F11.20 Opioid dependence, uncomplicated (principal)
CPT/HCPCS: 80307

== ENCOUNTER → 2021-10-27 | Outpatient (CLI) | payer MEDICAID, SELFPAY ==
[2016-12-11 11:39] VITALS: BMI 38.3
[2021-10-27 16:52] LABS: Amphetamine Urine VISTA NEGATIVE (<1000 ng/mL); Barbiturate Urine VISTA NEGATIVE (< 200 ng/mL); Benzodiazepine Urine VISTA POSITIVE (< 200 ng/mL); Cocaine Urine VISTA NEGATIVE (< 300 ng/mL); Ecstacy Urine VISTA NEGATIVE (< 500 ng/mL); Methadone Urine VISTA NEGATIVE (< 300 ng/mL); PCP Urine VISTA NEGATIVE (< 25 ng/mL); THC Urine VISTA NEGATIVE (< 50 ng/mL); Vista UDS pH Range 4
== END | disposition home or self-care (01) ==
LOC: LAB 15:10
PROVIDERS: Referring Provider Anesthesiology Pain Medicine; Visit Provider Anesthesiology Pain Medicine
DX: F11.20 Opioid dependence, uncomplicated (principal)
CPT/HCPCS: 80307

== ENCOUNTER → 2022-01-19 | Outpatient (CLI) | payer MEDICAID, SELFPAY ==
[2016-12-11 11:39] VITALS: BMI 38.3
[2022-01-19 13:50] LABS: Amphetamine Urine VISTA NEGATIVE (<1000 ng/mL); Barbiturate Urine VISTA NEGATIVE (< 200 ng/mL); Benzodiazepine Urine VISTA NEGATIVE (< 200 ng/mL); Cocaine Urine VISTA NEGATIVE (< 300 ng/mL); Ecstacy Urine VISTA NEGATIVE (< 500 ng/mL); Methadone Urine VISTA NEGATIVE (< 300 ng/mL); PCP Urine VISTA NEGATIVE (< 25 ng/mL); THC Urine VISTA NEGATIVE (< 50 ng/mL); Vista UDS pH Range 5
== END | disposition home or self-care (01) ==
PROVIDERS: Referring Provider Anesthesiology Pain Medicine; Visit Provider Anesthesiology Pain Medicine
DX: F11.20 Opioid dependence, uncomplicated (principal)
CPT/HCPCS: 80307

== ENCOUNTER → 2022-07-23 | Outpatient (CLI) | payer BC, MEDICAID, SELFPAY ==
[2016-12-11 11:39] VITALS: BMI 38.3
[2022-07-23 11:15] LABS: Amphetamine Urine VISTA NEGATIVE (<1000 ng/mL); Barbiturate Urine VISTA NEGATIVE (< 200 ng/mL); Benzodiazepine Urine VISTA NEGATIVE (< 200 ng/mL); Cocaine Urine VISTA NEGATIVE (< 300 ng/mL); Ecstacy Urine VISTA NEGATIVE (< 500 ng/mL); Methadone Urine VISTA NEGATIVE (< 300 ng/mL); PCP Urine VISTA NEGATIVE (< 25 ng/mL); THC Urine VISTA NEGATIVE (< 50 ng/mL); Vista UDS pH Range 5
== END | disposition home or self-care (01) ==
PROVIDERS: Referring Provider Anesthesiology Pain Medicine; Visit Provider Anesthesiology Pain Medicine
DX: F11.20 Opioid dependence, uncomplicated (principal)
CPT/HCPCS: 80307

== ENCOUNTER 2022-07-24 03:51 | Emergency (ER) | payer BC, MEDICAID, SELFPAY ==
[2016-12-11 11:39] VITALS: BMI 38.3
[2022-07-24 03:52] VITALS: BP 168/87; PULSE 100; RESP 18; TEMP 36.6; O2SAT 100; BMI 36.3
--- NOTE | 2022-07-24 03:54 | EDS_ITS ---
HPI History of Present Illness Chief Complaint: Lower Extremity Injury [facility] Medical History Anxiety Atherosclerotic heart disease of [place] coronary artery without angina pectoris Depression Diabetic nephropathy Dyslipidemia HLD (hyperlipidemia) Hypertension Mild intermittent asthma Morbid obesity with BMI of 40.0-44.9, adult Simple obesity Tobacco user Type 2 diabetes mellitus Home Medications albuterol sulfate 90 mcg/actuation aerosol inhaler 1 - 2 puff inhalation Q4H PRN PRN Sob &/Or Wheezing 03/04/16 [History Last Taken 05/24/19] tizanidine 4 mg tablet 4 mg PO BID 06/10/20 [History Last Taken Unknown] albuterol sulfate 90 mcg/actuation aerosol inhaler 2 puff inhalation Q6H PRN shortness of breath or wheezing #8.5 grams 12/24/20 [Rx Last Taken Unknown] oxycodone-acetaminophen 5 mg-325 mg tablet (Percocet) 1 tab PO BID 07/24/22 [History Last Taken Unknown] Allergy/AdvReac Type Severity Reaction Status Date / Time rice Allergy Chest Verified 07/24/22 03:54 tightness lisinopril Allergy Other Verified 07/24/22 03:54 niacin Allergy Other Verified 07/24/22 03:54 poison emma extract Allergy Unknown Verified 07/24/22 03:54 pollen extracts Allergy Shortness Verified 07/24/22 03:54 of breath venom-honey bee Allergy NEEDS Verified 07/24/22 03:54 FOLLOW-UP Family History Sister No problems noted. Mother Kidney disease Father Diabetes Brother Diabetes Surgical History Amputation of left index finger (~1999) H/O lumbosacral spine surgery (~2013) History of vasectomy (~2007) Postsurgical percutaneous transluminal coronary angioplasty (PTCA) status (~12/11/16) Presence of stent in coronary artery (~12/11/16) Social History Smoking Status: Current every day smoker tobacco type: cigarettes second hand exposure: Yes quit status: considering quitting alcohol intake: current alcohol intake frequency: holidays/special occasions only Alcohol type: beer substance use type: does not use caffeine: No what type of physical activity do you participate in: walking frequency: 3-4 times per week duration: 15-30 minutes/day seatbelt use: always do you feel safe at home: Yes EXAM Physical Exam Const Vital Signs: 07/24/22 03:52 Temperature 97.9 F Temperature Source Temporal Pulse Rate 100 Respiratory Rate 18 Blood Pressure 168/87 H Blood Pressure Mean 114 Pulse Ox 100 [facility] [place] Narrative Medical decision making narrative: HISTORY OF PRESENT ILLNESS: 42-year-old male here for right-sided leg pain. The patient states he has been experiencing 1 day of right hamstring and calf pain. He feels like there is a spasm-like sensation radiating down his leg. He notes he has history of chronic back pain this is similar however usually starts in his back. Denies any recent trauma, falls, lifting heavy objects. He denies any fever. Denies any urinary complaints. Patient denies active cancer, being bedridden for greater than 3 days, denies unilateral leg swelling, denies any varicose veins, denies any calf tenderness, denies any edema. Denies major surgery within 12 weeks, recent paralysis, previous DVT. Patient denies any saddle anesthesia, urinary tension, bowel or bladder incontinence, lower extremity weakness, fever or IV drug use, no recent spinal manipulation or surgery, no recent urinary catheterization. REVIEW OF SYSTEMS: Pertinent positives: Right leg pain Pertinent negatives: Numbness, weakness, loss of sensation PHYSICAL EXAM: Nursing triage notes reviewed, Vital signs reviewed Constitutional: please see [facility] HENT: MMM Eyes: Pupils equal round and reactive to light, Extraocular muscles intact Neck: No stridor, no JVD, full neck ROM Lungs: Clear to auscultation, No wheezing or rales. No increased work of breathing, no conversational dyspnea, no accessory muscle use, no nasal flaring. No respiratory distress noted Heart: Regular rate and rhythm, No murmurs, No rubs and No gallops, 2+ distal pulses (radial, femoral, posterior tibial) in all extremities Abdomen: Soft, there is no tenderness, rigidity, rebound or guarding, no obvious peritoneal signs, no palpable pulsatile abdominal masses, no auscultated abdo renetta bruit : No CVAT Extremities: No edema, no obvious deformities, no obvious trauma, compartments are soft intact quadriceps tendon complex. Intact range of motion of the knee hip and ankle on the right leg. Neuro: Intact sensation L1-S1 dermatomal distributions. Intact 5/5 strength in hip flexion (T12-L3). Knee extension (L2-L4). Ankle dorsiflexion (L4-L5). Ankle plantar flexion (S1). Great toe extension (L5). 2+ patellar and Achilles DTRs. Skin: No rash or lesions noted MEDICAL DECISION MAKING: Chief Complaint: Back pain External records reviewed: No recent ED visits or hospitalizations noted. MRI of the lumbar spine 2020 shows IMPRESSION: Worsening degenerative disc disease at L3/L4 with interval development of a large left paracentral and preforaminal extrusion producing moderate left lateral recess stenosis with abutment of the left L4 nerve root. OARRS reviewed Factors affecting care: Type 2 diabetes, CAD, hypertension, hyperlipidemia, ast hma, degenerative disc disease Social determinants of health: History of opioid dependence, current everyday smoker History obtained from others: Consults: None ALL IMAGES (IF OBTAINED) HAVE BEEN PERSONALLY REVIEWED AND INTERPRETED BY MYSELF. MDM Narrative: Patient was hemodynamically stable, afebrile, nontoxic-appearing. Exam without obvious signs of trauma, no signs of decreased perfusion, no unilateral leg swelling, calf tenderness. I considered the following differential diagnosis: Space-occupying region of spine, cauda equina, fracture dislocation spine, lumbar radiculopathy, arterial occlusion, DVT, musculoskeletal injury The patient a low DVT risk score. Warm and perfused extremity with intact pulses. He had no back pain red flag symptoms. I have a low suspicion for s pace-occupying to spine, cauda equina. Without trauma have a low suspicion for fracture dislocation. There is no evidence of compartment syndrome or infection. I suspect the patient is having lumbar radiculopathy versus muscle spasms. We will treat pain and spasms with oral Valium, NSAIDs and Decadron for symptomatic relief. Will discharge with close pain management and PCP follow- up. The patient and/or family, caregivers express understanding. The patient and/or family, caregivers agrees with the plan. Total critical care time today provided was at least 0 minutes. This excludes separately billable procedures. Critical care time (if documented) is secondary to the patient having high probability of clinically significant/life threatening deterioration in the patient's condition which required my urgent intervention. Shared decision making: I will have a discussion with the patient and or visitors regarding risk/benefits of further testing or admission. They will be made aware of of the risk/benefits inherent in this decision they will be given the opportunity to voice understanding. Discharge Plan Triage Chief Complaint: Lower Extremity Injury ED Provider: Cam Mcclure Dx/Rx/DC Orders Clinical Impression: Acute leg pain, Acute lumbar radiculopathy Instructions: Understanding Lumbar Radiculopathy Prescriptions: No Action tizanidine 4 mg tablet 4 mg PO BID albuterol sulfate 90 mcg/actuation HFA aerosol inhaler 2 puff inhalation Q6H PRN (Reason: shortness of breath or wheezing) Qty: 8.5 0RF albuterol sulfate 1 INHALER inhaler 1 - 2 puff INHALATION Q4H PRN PRN (Reason: Sob &/Or Wheezing) oxycodone-acetaminophen [Percocet] 5-325 mg Tablet 1 tab PO BID Stand Alone Forms: ED Work / School Excuse Primary Care Provider: Care Physician,No Primary Referrals: Aubrey Silva MD [Med Staff - Active Staff] - Activity Restrictions/Additional Instructions: Thank you for trusting us with your care today! Please take Tylenol (2 pills, 650 mg), ibuprofen (2 pills, 400 mg) every 6 hours as needed for pain and fever control. Please continue taking oral narcotics that have been prescribed by your pain management physician. Please continue taking muscle relaxers as prescribed. Please return to the emergency department if your symptoms change or worsen. Specifically if develop bowel or bladder incontinence, urinary tension, loss of sensation around your private parts. Please return if develop swelling in your right leg, worsening calf tenderness. Please follow with your primary care physician for further outpatient evaluation and management. Disposition Disposition: Home, Self Care
[2022-07-24] MEDS: diazePAM 2 MG Tablet PO (04:22)
[2022-07-24] MEDS: dexAMETHasone 4 MG Tablet PO (04:22)
[2022-07-24] MEDS: Ibuprofen 200 MG Tablet 400 MG PO (04:22)
== END 2022-07-24 04:33 | disposition home or self-care (01) ==
PROVIDERS: Emergency Provider Emergency Medicine; Visit Provider Emergency Medicine
DX: M51.16 Intervertebral disc disorders with radiculopathy, lumbar region (principal); E11.9 Type 2 diabetes mellitus without complications; E78.5 Hyperlipidemia, unspecified; J45.909 Unspecified asthma, uncomplicated; I25.10 Atherosclerotic heart disease of native coronary artery without angina pectoris; F17.210 Nicotine dependence, cigarettes, uncomplicated; I10 Essential (primary) hypertension; Z95.5 Presence of coronary angioplasty implant and graft
CPT/HCPCS: 99283

== ENCOUNTER 2022-08-02 10:55 | Emergency (ER) | payer BC, MEDICAID, SELFPAY ==
[2016-12-11 11:39] VITALS: BMI 38.3
[2022-08-02] VITALS (7 sets, daily range): BP systolic 152–173; BP diastolic 51–99; PULSE 86–106; RESP 12–19; TEMP 36.2–36.6; O2SAT 96–99; BMI 22.1
--- NOTE | 2022-08-02 11:15 | VDLE_ITS ---
Reason For Study: Right legpain RIGHT GSV is normal. CFV is compressible, spontaneous, phasic, competent and demonstrates normal augmentation. FV is compressible, spontaneous, phasic, competent and demonstrates normal augmentation. POP V is compressible, spontaneous, phasic, competent and demonstrates normal augmentation. T/P Trunk is compressible. PTV is compressible. RT PerV is compressible. Procedure This is a venous duplex using B-mode, color flow and spectral Doppler. Exam performed portable in ED. A preliminary report was called and/or faxed to Sergio MESS[facility]. VL/Venous Duplex US, Unilateral Interpretation Summary There is no evidence of right lower extremity deep vein thrombosis. Right great saphenous vein appears patent and compressible segmentally. Ordering Physician: Wendy Hill Performed By: Kiki Ngo RVT
--- NOTE | 2022-08-02 11:34 | EX.ED.DYSGE1 ---
HPI <SIDDHARTH Farris - Last Filed: 08/02/22 20:08> History of Present Illness Chief Complaint: Lower Extremity Injury Narrative Narrative: Patient presenting today with worsening right calf pain that he has had for over a week now. He reports that the pain came on suddenly while he was at work and feels like a stabbing sensation in his right calf that at times will radiate into his hamstrings and hip. He did come into the ED the next day and was diagnosed with a muscular strain and was given RICE instructions, he also went to urgent care on Wednesday and they placed him on prednisone which has not helped his symptoms. He has been using ice, anti-inflammatories, muscle rubs without relief. When he walks he reports that his toes in the right foot feel tingly. He reports concerns that he could have a blood clot in his right leg as he has had a blood clot in the past that occurred after an accident. He does report chronic back pain but does not think that this is related to that. He denies any injury to his right leg. He is not on any blood thinners. [facility] <SIDDHARTH Farris - Last Filed: 08/02/22 20:08> [facility] Medical History Anxiety Atherosclerotic heart disease of [place] coronary artery without angina pectoris Depression Diabetic nephropathy Dyslipidemia HLD (hyperlipidemia) Hypertension Mild intermittent asthma Morbid obesity with BMI of 40.0-44.9, adult Simple obesity Tobacco user Type 2 diabetes mellitus Home Medications albuterol sulfate 90 mcg/actuation aerosol inhaler 1 - 2 puff inhalation Q4H PRN PRN Sob &/Or Wheezing 03/04/16 [History Last Taken 05/24/19] tizanidine 4 mg tablet 4 mg PO BID 06/10/20 [History Last Taken Unknown] albuterol sulfate 90 mcg/actuation aerosol inhaler 2 puff inhalation Q6H PRN shortness of breath or wheezing #8.5 grams 12/24/20 [Rx Last Taken Unknown] oxycodone-acetaminophen 5 mg-325 mg tablet (Percocet) 1 tab PO BID 07/24/22 [History Last Taken Unknown] oxycodone-acetaminophen 5 mg-325 mg tablet 1 tab PO Q4H PRN Pain 4 days #24 TABLETS 08/02/22 [Rx Last Taken Unknown] Allergy/AdvReac Type Severity Reaction Status Date / Time rcie Allergy Chest Verified 08/02/22 10:56 tightness lisinopril Allergy Other Verified 08/02/22 10:56 niacin Allergy Other Verified 08/02/22 10:56 poison emma extract Allergy Unknown Verified 08/02/22 10:56 pollen extracts Allergy Shortness Verified 08/02/22 10:56 of breath venom-honey bee Allergy NEEDS Verified 08/02/22 10:56 FOLLOW-UP Family History Sister No problems noted. Mother Kidney disease Father Diabetes Brother Diabetes Surgical History Amputation of left index finger (~1999) H/O lumbosacral spine surgery (~2013) History of vasectomy (~2007) Postsurgical percutaneous transluminal coronary angioplasty (PTCA) status (~12/11/16) Presence of stent in coronary artery (~12/11/16) Social History Smoking Status: Current every day smoker tobacco type: cigarettes second hand exposure: Yes quit status: considering quitting alcohol intake: current alcohol intake frequency: holidays/special occasions only Alcohol type: beer substance use type: does not use caffeine: No what type of physical activity do you participate in: walking frequency: 3-4 times per week duration: 15-30 minutes/day seatbelt use: always do you feel safe at home: Yes ROS <SIDDHARTH Farris - Last Filed: 08/02/22 20:08> ROS ED Constitutional Constitutional ED: Denies chills or fever(s) Cardiovascular Cardiovascular: Denies chest pain Respiratory/Chest Respiratory/Chest: Denies cough or dyspnea Gastrointestinal Gastrointestinal: Denies abdominal pain, nausea or vomiting Musculoskeletal Musculoskeletal: Reports myalgias; Denies arthralgias Integumentary Denies Abrasions or rash Neurologic Neurologic: Reports paresthesias EXAM <SIDDHARTH Farris - Last Filed: 08/02/22 20:08> Physical Exam Const Vital Signs: 08/02/22 10:56 08/02/22 17:11 08/02/22 17:39 Temperature 97.2 F L 98 F Temperature Source Temporal Pulse Rate 106 H 90 Pulse Rate [1 (Initial Baseline)] 88 Pulse Rate [2] 88 Pulse Rate [4] 89 Pulse Rate [5] 87 Respiratory Rate 16 16 Respiratory Rate [1 (Initial Baseline)] 12 Respiratory Rate [2] 15 Respiratory Rate [4] 18 Respiratory Rate [5] 19 H Blood Pressure 173/88 H 165/96 H Blood Pressure [1 (Initial Baseline)] 167/92 H Blood Pressure [2] 170/95 H Blood Pressure [4] 170/95 H Blood Pressure [5] 152/88 H Blood Pressure Mean 116 Pulse Ox 99 97 Oxygen Delivery Method Room Air Room Air Oxygen Delivery Method [1 (Initial Baseline)] Nasal Cannula Oxygen Delivery Method [2] Nasal Cannula Oxygen Delivery Method [4] Nasal Cannula Oxygen Delivery Method [5] Nasal Cannula Oxygen Flow Rate (L/min) [1 (Initial Baseline)] 2 Oxygen Flow Rate (L/min) [2] 2 Oxygen Flow Rate (L/min) [4] 2 Oxygen Flow Rate (L/min) [5] 98 08/02/22 17:50 08/02/22 17:55 08/02/22 18:01 Temperature Temperature Source Pulse Rate 86 91 89 Pulse Rate [1 (Initial Baseline)] Pulse Rate [2] Pulse Rate [4] Pulse Rate [5] Respiratory Rate 18 15 16 Respiratory Rate [1 (Initial Baseline)] Respiratory Rate [2] Respiratory Rate [4] Respiratory Rate [5] Blood Pressure 152/88 H 163/99 H 163/99 H Blood Pressure [1 (Initial Baseline)] Blood Pressure [2] Blood Pressure [4] Blood Pressure [5] Blood Pressure Mean Pulse Ox 96 96 97 Oxygen Delivery Method Room Air Room Air Room Air Oxygen Delivery Method [1 (Initial Baseline)] Oxygen Delivery Method [2] Oxygen Delivery Method [4] Oxygen Delivery Method [5] Oxygen Flow Rate (L/min) [1 (Initial Baseline)] Oxygen Flow Rate (L/min) [2] Oxygen Flow Rate (L/min) [4] Oxygen Flow Rate (L/min) [5] 08/02/22 18:43 Temperature Temperature Source Pulse Rate Pulse Rate [1 (Initial Baseline)] Pulse Rate [2] Pulse Rate [4] Pulse Rate [5] Respiratory Rate Respiratory Rate [1 (Initial Baseline)] Respiratory Rate [2] Respiratory Rate [4] Respiratory Rate [5] Blood Pressure Blood Pressure [1 (Initial Baseline)] Blood Pressure [2] Blood Pressure [4] Blood Pressure [5] Blood Pressure Mean Pulse Ox Oxygen Delivery Method Room Air Oxygen Delivery Method [1 (Initial Baseline)] Oxygen Delivery Method [2] Oxygen Delivery Method [4] Oxygen Delivery Method [5] Oxygen Flow Rate (L/min) [1 (Initial Baseline)] Oxygen Flow Rate (L/min) [2] Oxygen Flow Rate (L/min) [4] Oxygen Flow Rate (L/min) [5] Positive well nourished, well developed and no apparent distress General Appearance ED: well developed HEENT Reports normocephalic and head/scalp atraumatic Mouth ED: Yes moist mucous membranes normal Eyes PERRL and EOMs intact bilaterally Neck full ROM and supple Chest Wall inspection of chest normal Resp normal respiratory effort and clear to auscultation bilaterally Cardio regular rate and regular rhythm GI soft to palpation, non-tender, non-distended and no masses Back/Spine normal ROM and normal to inspection Extremity normal to inspection and full ROM Extremity Narrative: Pain to palpation along the right calf, DP pulses 2+ and equal bilaterally, good capillary refill, sensation intact. Neuro oriented x3, CN's II-XII intact bilaterally, moves all extremities, no focal motor deficits and no sensory deficits noted Sensorium / Orientation: awake and alert Psych mental status grossly normal and thought process normal Skin no rashes or lesions noted and no wounds <Dr. Roc Colindres MD - Last Filed: 08/02/22 18:09> Physical Exam Const Vital Signs: 08/02/22 10:56 08/02/22 17:11 08/02/22 17:39 Temperature 97.2 F L 98 F Temperature Source Temporal Pulse Rate 106 H 90 Pulse Rate [1 (Initial Baseline)] 88 Pulse Rate [2] 88 Pulse Rate [4] 89 Pulse Rate [5] 87 Respiratory Rate 16 16 Respiratory Rate [1 (Initial Baseline)] 12 Respiratory Rate [2] 15 Respiratory Rate [4] 18 Respiratory Rate [5] 19 H Blood Pressure 173/88 H 165/96 H Blood Pressure [1 (Initial Baseline)] 167/92 H Blood Pressure [2] 170/95 H Blood Pressure [4] 170/95 H Blood Pressure [5] 152/88 H Blood Pressure Mean 116 Pulse Ox 99 97 Oxygen Delivery Method Room Air Room Air Oxygen Delivery Method [1 (Initial Baseline)] Nasal Cannula Oxygen Delivery Method [2] Nasal Cannula Oxygen Delivery Method [4] Nasal Cannula Oxygen Delivery Method [5] Nasal Cannula Oxygen Flow Rate (L/min) [1 (Initial Baseline)] 2 Oxygen Flow Rate (L/min) [2] 2 Oxygen Flow Rate (L/min) [4] 2 Oxygen Flow Rate (L/min) [5] 98 08/02/22 17:50 08/02/22 17:55 08/02/22 18:01 Temperature Temperature Source Pulse Rate 86 91 89 Pulse Rate [1 (Initial Baseline)] Pulse Rate [2] Pulse Rate [4] Pulse Rate [5] Respiratory Rate 18 15 16 Respiratory Rate [1 (Initial Baseline)] Respiratory Rate [2] Respiratory Rate [4] Respiratory Rate [5] Blood Pressure 152/88 H 163/99 H 163/99 H Blood Pressure [1 (Initial Baseline)] Blood Pressure [2] Blood Pressure [4] Blood Pressure [5] Blood Pressure Mean Pulse Ox 96 96 97 Oxygen Delivery Method Room Air Room Air Room Air Oxygen Delivery Method [1 (Initial Baseline)] Oxygen Delivery Method [2] Oxygen Delivery Method [4] Oxygen Delivery Method [5] Oxygen Flow Rate (L/min) [1 (Initial Baseline)] Oxygen Flow Rate (L/min) [2] Oxygen Flow Rate (L/min) [4] Oxygen Flow Rate (L/min) [5] 08/02/22 18:43 Temperature Temperature Source Pulse Rate Pulse Rate [1 (Initial Baseline)] Pulse Rate [2] Pulse Rate [4] Pulse Rate [5] Respiratory Rate Respiratory Rate [1 (Initial Baseline)] Respiratory Rate [2] Respiratory Rate [4] Respiratory Rate [5] Blood Pressure Blood Pressure [1 (Initial Baseline)] Blood Pressure [2] Blood Pressure [4] Blood Pressure [5] Blood Pressure Mean Pulse Ox Oxygen Delivery Method Room Air Oxygen Delivery Method [1 (Initial Baseline)] Oxygen Delivery Method [2] Oxygen Delivery Method [4] Oxygen Delivery Method [5] Oxygen Flow Rate (L/min) [1 (Initial Baseline)] Oxygen Flow Rate (L/min) [2] Oxygen Flow Rate (L/min) [4] Oxygen Flow Rate (L/min) [5] MDM <SIDDHARTH Farris Last Filed: 08/02/22 20:08> [facility] Narrative Medical decision making narrative: Patient presenting with concerns that he could have a DVT in his right lower extremity. He has had right calf pain for over a week without any injury. He thinks that his right calf appears to be swollen in comparison to the left, I am not noticing any swelling on examination. He does have a history of a blood clot that occurred after an injury and was in his jugular vein. He is not on any blood thinners. He is not having any chest pain or shortness of breath. Venous duplex ultrasound will be obtained to rule out DVT and patient has been given Toradol for pain. Ultrasound is negative for DVT. He does have palpable pulses in his feet bilaterally, history of claudication, CTA of the right leg obtained and is negative for any acute findings. Patient was given additional pain control with morphine. There is a concern for compartment syndrome given patient's examination, pressures in right lower extremity compartments below the knee were checked by the attending ED physician and were WNL. At this time, the cause of patient's pain is unknown, but likely muscular strain. We will give him an orthopedic follow-up, crutches, and pain control. He will be discharged home in stable condition and is comfortable with plan. Lab Data Labs: Laboratory Results - last 24 hr 08/02/22 08/02/22 13:20 13:20 WBC 10.4 RBC 5.10 Hgb 15.3 Hct 45.1 MCV 88.4 MCH 30.0 MCHC 33.9 RDW Std Deviation 42.5 RDW Coeff of Soto 13.0 Plt Count 272 MPV 10.7 Immature Gran % (Auto) 0.800 Neut % (Auto) 61.3 Lymph % (Auto) 29.2 Stokes % (Auto) 5.8 Eos % (Auto) 1.9 Baso % (Auto) 1.0 Absolute Neuts (auto) 6.4 Absolute Lymphs (auto) 3.04 Nucleated RBC % 0 Sodium 138 Potassium 3.3 L Chloride 105 Carbon Dioxide 26.0 Anion Gap 7 BUN 13 Creatinine 0.70 Estim Creat Clear Calc 143.76 Est GFR (MDRD) Af Amer 159 Est GFR (MDRD) Non-Af 131 BUN/Creatinine Ratio 18.6 Glucose 266 H Calcium 7.9 L Total Creatine Kinase 111 Radiography Diagnostic Testing: Clinical Impression(s) from Imaging Studies Lower Extremity CTA 08/02/22 13:52 IMPRESSION: No evidence of right extremity arterial vascular cut off, aneurysm or underlying acute process. Slight decreased evaluation of the most distal arterial segments, consider confirmation with distal foot Doppler imaging as clinically warranted. Electronically Signed: Frederic Bennett DO at 15:19 EDT , <Dr. Roc Colindres MD - Last Filed: 08/02/22 18:09> [facility] Lab Data Attestation: I reviewed the patient's lab results. Labs: Laboratory Results - last 24 hr 08/02/22 08/02/22 13:20 13:20 WBC 10.4 RBC 5.10 Hgb 15.3 Hct 45.1 MCV 88.4 MCH 30.0 MCHC 33.9 RDW Std Deviation 42.5 RDW Coeff of S[place] 13.0 Plt Count 272 MPV 10.7 Immature Gran % (Auto) 0.800 Neut % (Auto) 61.3 Lymph % (Auto) 29.2 Stokes % (Auto) 5.8 Eos % (Auto) 1.9 Baso % (Auto) 1.0 Absolute Neuts (auto) 6.4 Absolute Lymphs (auto) 3.04 Nucleated RBC % 0 Sodium 138 Potassium 3.3 L Chloride 105 Carbon Dioxide 26.0 Anion Gap 7 BUN 13 Creatinine 0.70 Estim Creat Clear Calc 143.76 Est GFR (MDRD) Af Amer 159 Est GFR (MDRD) Non-Af 131 BUN/Creatinine Ratio 18.6 Glucose 266 H Calcium 7.9 L Total Creatine Kinase 111 Radiography Diagnostic Testing: Clinical Impression(s) from Imaging Studies Lower Extremity CTA 08/02/22 13:52 IMPRESSION: No evidence of right extremity arterial vascular cut off, aneurysm or underlying acute process. Slight decreased evaluation of the most distal arterial segments, consider confirmation with distal foot Doppler imaging as clinically warranted. Electronically Signed: Frederic Bennett DO at 15:19 EDT , Management Discussion w/another healthcare provider: Sales Performance Manager (Orthopedics Dr. Rose) Treatment and Re-Evaluation Comments:: Seen and evaluated independently and in conjunction with physician production administrative assistant. Agree with notes above unless documented otherwise. Spontaneous onset of pain and swelling in the right lower extremity mostly focused in the calf, has been going on for a week and getting worse, now going up the back of his right thigh, and he has a couple of toes that are tingling. It is hurting all the time, worse with walking but not exertional pain. No low back pain. No injuries that he knows of. No recent immobilization, surgery, hospitalization or surgery. Calf tenderness no palpable cord, mild swelling right calf compared to the left, neurovascular intact distally right lower extremity with intact pulses. Patient well-appearing. No discoloration of the right lower extremity compared to the left. Plan: duplex u/s RLE was obtained and negative. Patient does not appear to have radiculopathy, and he has a documented history of claudication. I discussed that with him but he did not recall. He does have palpable pulses in the leg, so we started with CTA of the right lower extremity, or reviewed the images and the result which I agree with, basically negative. I am not concerned about ischemia in the foot so although I noted the radiologist recommendation I do not think that is necessary to do further vascular imaging emergently. Given all of this, the fact that patient states he is having severe pain especially with the ultrasound, we discussed the possibility of compartment syndrome especially since he has the pain, swelling, paresthesias, all of which is significantly increased with passive stretch of the posterior compartments. After discussion with orthopedics and discussing the pressure of the posterior superficial compartment of 12, he recommends testing the other 3 compartments to ensure does not have compartment syndrome of one of the others. Obviously is concerned about the anterior compartment, but after discussing with the patient and him consenting after discussion of pros and cons for procedural sedation with Versed and proceeding with further sterile measurements, we did that as well to verify its pressure was normal. The pressures were indeed within normal limits. At the time of the procedure, the patient's diastolic blood pressure was 88, the highest pressure was the posterior deep compartment of 20, this is not higher than 30 and not within 30 mmHg of the diastolic pressure. Therefore this essentially rules out acute compartment syndrome at this time. Patient was reassured, seen throughout recovery, and will be prescribed analgesics, given crutches, and given appropriate discharge instructions. <Dr. Roc Colindres MD - Last Filed: 08/02/22 18:09> Procedural Sedation 1 (Initial Baseline): Consent Signed: Yes Any Problems With Anesthesia: No You/Your family experience fever (hyperthermia) w/anesthesia: No Sedation medication: Versed Dose: 5 Route: IV Total Moderate Sedation Units: 16 Maliampati Score: Class I ASA Classification: I Comment:: Patient on monitor and oxygen, with saline, end-tidal CO2 monitoring, no complications tolerated well. Other Procedures Procedure(s): Measurement of compartment pressures right lower leg, all 4 compartments: Initially the posterior deep compartment pressure was measured using [employer]INK Imaging device with patient awake, locally anesthetizing with 2 cc of plain 1% lidocaine, and placing sterile needle in sterile technique with Betadine prep into the area posterior approach directly into the calf/gastrocnemius, a pressure of 12 was obtained after injecting a small amount of sterile saline, that appropriately increased with forced dorsiflexion of the foot. The rest of the pressures were obtained without local anesthesia while patient was sedated; the anterior compartment pressure was measured as 5 after injecting small amount of sterile saline, that appropriately increased with forced plantarflexion of the foot. The lateral compartment pressure was measured at 13 after injecting small amount of saline from an approach directly toward the fibular shaft about one third down from the knee, which appropriately increased with forced inversion of the foot. The posterior deep compartment pressure was measured at 20 after injecting a small amount of sterile saline, appropriately increasing with forced toes extension. All of this was done in a sterile fashion, prepped and draped with Betadine, there is minimal bleeding and bandages were placed at all of the injection sites. Tolerated well with no complications. Discharge Plan Triage Chief Complaint: Lower Extremity Injury ED Midlevel Provider: Wendy Hill ED Provider: Roc Colindres Dx/Rx/DC Orders Clinical Impression: Pain in right lower leg Instructions: ED Pain, Acute, Uncertain Cause Prescriptions: New oxycodone-acetaminophen [oxycodone-acetaminophen] 5-325 mg tablet 1 tab PO Q4H PRN (Reason: Pain) 4 Days Qty: 24 0RF No Action tizanidine 4 mg tablet 4 mg PO BID albuterol sulfate 90 mcg/actuation HFA aerosol inhaler 2 puff inhalation Q6H PRN (Reason: shortness of breath or wheezing) Qty: 8.5 0RF albuterol sulfate 1 INHALER inhaler 1 - 2 puff INHALATION Q4H PRN PRN (Reason: Sob &/Or Wheezing) oxycodone-acetaminophen [Percocet] 5-325 mg Tablet 1 tab PO BID Primary Care Provider: Care Physician,No Primary Referrals: Markell Rose MD [Med Staff - Active Staff] - As soon as possible Care Physician,No Primary [Primary Care Provider] - Activity Restrictions/Additional Instructions: Given that your compartment pressures were within normal limits, we will treat this like muscular pain for right now but so as to not increase the the pressures for now until you see orthopedics, try to avoid weightbearing on your right lower extremity, do not wrap anything around your leg, elevate the leg especially tonight and ice the affected area. Disposition Disposition: Home, Self Care Discharge Date/Time: 08/02/22 19:33
[2022-08-02] MEDS: Ketorolac 15 MG/ML Vial IM (12:40)
--- NOTE | 2022-08-02 13:52 | CT_ITS ---
STUDY: CTA OF THE RIGHT LOWER EXTREMITY REASON FOR EXAM: Male, 42 years old. calf pain R. EXTRA SLIGHTLY DELAYED IMAGES THRU LOWER LEG RADIATION DOSAGE (If Supplied By Facility): CTDIvol = ( 8.21 ) mGy, DLP = ( 917.43 ) mGycm TECHNIQUE: Axial CT angiography multi-detector data acquisition was obtained from the right hip to the distal extremity following intravenous administration of IV 100mL Isovue-370. Axial images and MIP images were reconstructed from the axial data set. Post-processing of the angiographic images was performed, with multiplanar reformation and 3D reconstruction. Individualized dose optimization techniques were used for this CT. TECHNICAL QUALITY: Good COMPARISON: None. Descriptors of Narrowing: None (0%) Mild (< 50%) Moderate (50-70%) Severe (70-90%) Subtotal/Total Occlusion (90-100%) Non-Evaluable (technically non-diagnostic FINDINGS: RIGHT LOWER EXTREMITY Right common femoral artery: No demonstrated narrowing. Right profundus femoris: No demonstrated narrowing. Right superficial femoral: No demonstrated narrowing. Right popliteal artery: No demonstrated narrowing. Right tibioperoneal trunk: No demonstrated narrowing. Right anterior tibial artery: No demonstrated narrowing. Right posterior tibial artery: No demonstrated narrowing. Right peroneal artery: No demonstrated narrowing. LEFT LOWER EXTREMITY Left common femoral artery: No demonstrated narrowing. Left profundus femoris: No demonstrated narrowing. Left superficial femoral: No demonstrated narrowing. Left popliteal artery: No demonstrated narrowing. Left tibioperoneal trunk: No demonstrated narrowing. Left anterior tibial artery: No demonstrated narrowing. Left posterior tibial artery: No demonstrated narrowing. Left peroneal artery: No demonstrated narrowing. CT/CTA LWR EXTR W/O & W/DYE IMPRESSION: No evidence of right extremity arterial vascular cut off, aneurysm or underlying acute process. Slight decreased evaluation of the most distal arterial segments, consider confirmation with distal foot Doppler imaging as clinically warranted. Electronically Signed: Frederic Bennett DO at 15:19 EDT ,
[2022-08-02] MEDS: Morphine 4 MG/ML Syringe IV ×2 (14:02→16:51)
[2022-08-02 14:12] LABS: Absolute Lymphocyte Count 3.04 X10^3/uL (0.83-4.51); Absolute Neutrophil Count 6.4 X10^3/uL (2.0-7.7); Eosinophils% 1.9 % (0-5); Hematocrit 45.1 % (40-54); Hemoglobin 15.3 g/dL (13.0-16.5); Lymphocyte # 3.04 X10^3/ul (0.83-4.51); Lymphocyte % 29.2 % (19-41); Mean Corp Hgb Conc 33.9 g/dL (32-36); Mean Corpuscular Volume 88.4 fL (80-94); Mean Platelet Vol. 10.7 fl (6.2-12.0); Monocyte% 5.8 % (0-10); NRBC Flagged by Analyzer 0 % (0-5); Neutrophil % 61.3 % (47-70); Platelet Count 272 K/mm3 (150-450); RBC Distribution Width SD 42.5 fl (35.1-43.9); White Blood Count 10.4 K/mm3 (4.4-11.0)
[2022-08-02 14:29] LABS: Anion Gap 7 (5-15); BUN 13 mg/dL (7-18); BUN/Creat Ratio 18.6 RATIO (10-20); CPK Total, Creatine Kinase 111 U/L (39-308); Calcium,Total 7.9 mg/dL (8.5-10.1); Chloride 105 mmol/L (98-107); EST Glomerular Filtration Rate 131 mL/min (>60); Est Glom Filt Rate - Afr Amer 159 mL/min (>60); Estimated Creatinine Clearance 143.76 ml/min; Glucose 266 mg/dL (74-106); Potassium 3.3 mmol/L (3.5-5.1); Sodium Level 138 mmol/L (136-145)
--- NOTE | 2022-08-02 16:30 | ED.RN ---
THIS RN ASSISTED WITH [facility] SET UP FOR PHYSICIAN TO EVALUATE FOR COMPARTMENT SYNDROME. PT RESULT IS 12
[2022-08-02] MEDS: Midazolam 5 MG/ML Syringe IV (17:18)
== END 2022-08-02 19:33 | disposition home or self-care (01) ==
PROVIDERS: Physician Assistant; Emergency Provider Emergency Medicine; Visit Provider Emergency Medicine
DX: M79.661 Pain in right lower leg (principal); E11.9 Type 2 diabetes mellitus without complications; I25.10 Atherosclerotic heart disease of native coronary artery without angina pectoris; E78.5 Hyperlipidemia, unspecified; I10 Essential (primary) hypertension; F17.210 Nicotine dependence, cigarettes, uncomplicated; Z95.5 Presence of coronary angioplasty implant and graft; Z98.52 Vasectomy status
CPT/HCPCS: 20950; 73706; 80048; 82550; 85025; 93971; 96372; 96374; 96375; 96376; 99156; 99285; J7030; Q9967; A4216

== ENCOUNTER → 2023-01-15 | Outpatient (CLI) | payer MEDICAID, SELFPAY ==
[2022-12-16 14:50] VITALS: BMI 38.3
--- NOTE | 2023-01-15 07:06 | MRI_ITS ---
STUDY: MRI RIGHT SHOULDER REASON FOR EXAM: Male, 42 years old. Pain. TECHNIQUE: Standardized fat and water weighted pulse sequences were obtained in all 3 orthogonal planes. COMPARISON: Right shoulder radiographs dated 08/06/2021. FINDINGS: There is supraspinatus tendinosis with a 3 x 9 mm interstitial/intrasubstance tear of the distal supraspinatus tendon insertion (coronal T2 series 5 images 13-14; sagittal T2 series 6 image 16). Normal infraspinatus tendon. There is mild subscapularis tendinosis. Normal teres minor tendon. Normal supraspinatus muscle. Normal infraspinatus muscle. Normal subscapularis muscle. Normal teres minor muscle. Normal glenohumeral articulation. There is mild enthesopathic subcortical edema/cyst formation of the greater tuberosity of the humerus. Normal biceps labral complex. Normal intracapsular long biceps tendon. Normal labrum. Normal capsulo-ligamentous complex. Normal rotator interval. There is mild hypertrophic acromioclavicular arthrosis. There is a Type I morphology (flat undersurface), with a neutral orientation. There is no subacromial-subdeltoid bursal fluid. Normal visualized coracohumeral and coracoacromial ligaments. Normal quadrilateral space. Normal axillary space. Normal deltoid muscle. Normal trapezius muscle. MRI/Upper Ext Joint Only(Routine) IMPRESSION: Supraspinatus tendinosis with a 3 x 9 mm interstitial/intrasubstance tear of the distal supraspinatus tendon insertion. Mild subscapularis tendinosis. Mild hypertrophic acromioclavicular arthrosis. Electronically Signed: Omar Melendez MD at 10:35 EST ,
== END | disposition home or self-care (01) ==
PROVIDERS: Referring Provider Orthopaedic Surgery Sports Medicine; Visit Provider Orthopaedic Surgery Sports Medicine
DX: M25.811 Other specified joint disorders, right shoulder (principal); M25.511 Pain in right shoulder
CPT/HCPCS: 73221

== ENCOUNTER → 2023-02-04 | Outpatient (CLI) | payer MEDICAID, SELFPAY ==
[2022-12-16 14:50] VITALS: BMI 38.3
[2023-02-04 11:00] LABS: Amphetamine Urine VISTA NEGATIVE (<1000 ng/mL); Barbiturate Urine VISTA NEGATIVE (< 200 ng/mL); Benzodiazepine Urine VISTA NEGATIVE (< 200 ng/mL); Cocaine Urine VISTA NEGATIVE (< 300 ng/mL); Ecstacy Urine VISTA NEGATIVE (< 500 ng/mL); Methadone Urine VISTA NEGATIVE (< 300 ng/mL); PCP Urine VISTA NEGATIVE (< 25 ng/mL); THC Urine VISTA NEGATIVE (< 50 ng/mL); Vista UDS pH Range 6
== END | disposition home or self-care (01) ==
LOC: LAB 10:05
PROVIDERS: Referring Provider Anesthesiology Pain Medicine; Visit Provider Anesthesiology Pain Medicine
DX: F11.20 Opioid dependence, uncomplicated (principal)
CPT/HCPCS: 80307

== ENCOUNTER 2023-02-14 09:47 | Emergency (ER) | payer MEDICAID, SELFPAY ==
[2022-12-16 14:50] VITALS: BMI 38.3
[2023-02-14 09:47] VITALS: BP 170/89; PULSE 96; RESP 16; TEMP 36.6; O2SAT 100; BMI 35.1
--- NOTE | 2023-02-14 10:16 | ED.VIS.DENTA ---
HPI History of Present Illness Chief Complaint: Dental Informant: patient Narrative Narrative: Patient complains of dental pain and swelling not improving with antibiotics. He states a month or so ago he chipped part of a tooth in his right upper jaw. But about 4 days ago it started hurting. Yesterday he was seen at urgent care and started on Augmentin. He has taken this. He just took his third tablet before arrival. He states the swelling is not better and he thinks it might be a little bit worse. No nausea vomiting. No fevers or chills. No history of immunosuppression. No trouble swallowing or breathing. No visual complaints. The swelling is going up toward his eye a little bit. PFSH [facility] Medical History Anxiety Atherosclerotic heart disease of [place] coronary artery without angina pectoris Depression Diabetic nephropathy Dyslipidemia HLD (hyperlipidemia) Hypertension Impingement of right shoulder Mild intermittent asthma Morbid obesity with BMI of 40.0-44.9, adult Right rotator cuff tear Right shoulder pain Simple obesity Tobacco user Type 2 diabetes mellitus Home Medications albuterol sulfate 90 mcg/actuation aerosol inhaler 1 - 2 puff inhalation Q4H PRN PRN Sob &/Or Wheezing 03/04/16 [History Last Taken 05/24/19] tizanidine 4 mg tablet 4 mg PO BID 06/10/20 [History Last Taken Unknown] albuterol sulfate 90 mcg/actuation aerosol inhaler 2 puff inhalation Q6H PRN shortness of breath or wheezing #8.5 grams 12/24/20 [Rx Last Taken Unknown] oxycodone myristate 18 mg capsule sprinkle extended release 12hr(DON'T CRUSH) (Xtampza ER) 18 mg PO BID 12/22/22 [History Last Taken Unknown] amoxicillin 875 mg-potassium clavulanate 125 mg tablet tab 02/14/23 [History Last Taken Unknown] Allergy/AdvReac Type Severity Reaction Status Date / Time rice Allergy Chest Verified 02/14/23 09:49 tightness lisinopril Allergy Other Verified 02/14/23 09:49 niacin Allergy Other Verified 02/14/23 09:49 poison emma extract Allergy Unknown Verified 02/14/23 09:49 pollen extracts Allergy Shortness Verified 02/14/23 09:49 of breath venom-honey bee Allergy NEEDS Verified 02/14/23 09:49 FOLLOW-UP Family History Sister No problems noted. Mother Kidney disease Father Diabetes Brother Diabetes Surgical History Amputation of left index finger (~1999) H/O lumbosacral spine surgery (~2013) History of vasectomy (~2007) Postsurgical percutaneous transluminal coronary angioplasty (PTCA) status (~12/11/16) Presence of stent in coronary artery (~12/11/16) Social History Smoking Status: Current every day smoker tobacco type: cigarettes second hand exposure: Yes quit status: considering quitting alcohol intake: current alcohol intake frequency: holidays/special occasions only Alcohol type: beer substance use type: does not use caffeine: No what type of physical activity do you participate in: walking frequency: 3-4 times per week duration: 15-30 minutes/day seatbelt use: always do you feel safe at home: Yes ROS ROS ED Constitutional Constitutional ED: Denies chills, fever(s), subjective or sweats Eyes Eyes: Denies blurry vision or change in vision ENT ENT ED: Reports other Details: See HPI. Cardiovascular Cardiovascular: Denies chest pain or palpitations Respiratory/Chest Respiratory/Chest: Denies cough or dyspnea Gastrointestinal Gastrointestinal: Denies nausea or vomiting Musculoskeletal Musculoskeletal: Denies myalgias or neck pain Integumentary Denies rash Neurologic Neurologic: Denies headache(s), paresthesias or weakness Hematologic/Lymphatic Hematologic/Lymphatic: Denies lymphadenopathy EXAM Physical Exam Narrative Exam Narrative: General: Patient awake alert sitting in chair in the room. Nontoxic. Carries on normal conversation. HEENT: There is some fullness to the right side of his face mostly on the upper portion. No nasal drainage. Lids are not really swollen. Good range of motion of the eye with no pain. No proptosis. He does have diffusely poor dentition. He has erythematous gums in the right upper jaw. But I do not see any abscess that could be drained. His voice is normal handling secretions is normal. No sign of Sandip's. Neck: Supple without lymphadenopathy or swelling. Heart is regular. No murmur. Lungs are clear bilaterally and saturations are 100% on room air showing no hypoxia. Abdomen is nontender. Const Vital Signs: 02/14/23 09:47 Temperature 97.8 F Temperature Source Temporal Pulse Rate 96 Respiratory Rate 16 Blood Pressure 170/89 H Blood Pressure Mean 116 Pulse Ox 100 Oxygen Delivery Method Room Air MDM MDM MDM Narrative Medical decision making narrative: I discussed options with the patient. I explained that he is really just been on antibiotics for 24 hours. I would not expect this to have turned around and gotten better. We did offer and he would like to have an IV dose of antibiotics. I will also give him a one-time dose of Decadron to see if this will help his swelling. Assuming there are no other issues we will get him home at that time. Discharge Plan Triage Chief Complaint: Dental ED Provider: Efraín Chakraborty Dx/Rx/DC Orders Clinical Impression: Abscess, dental Instructions: ED Tooth Abscess Prescriptions: No Action tizanidine 4 mg tablet 4 mg PO BID albuterol sulfate 90 mcg/actuation HFA aerosol inhaler 2 puff inhalation Q6H PRN (Reason: shortness of breath or wheezing) Qty: 8.5 0RF Xtampza ER 18 mg cap,sprinkl,ER12hr(DONT CRUSH) 18 mg PO BID Rx Instructions: must administer with a meal/food albuterol sulfate 1 INHALER inhaler 1 - 2 puff INHALATION Q4H PRN PRN (Reason: Sob &/Or Wheezing) amoxicillin-pot clavulanate 875-125 mg tablet Primary Care Provider: Care Physician,No Primary Referrals: Care Physician,No Primary [Primary Care Provider] - Activity Restrictions/Additional Instructions: See dentist as soon as possible. A list will be provided for some options. Continue your antibiotics as prescribed yesterday. Disposition Disposition: Home, Self Care
[2023-02-14] MEDS: dexAMETHasone 10 MG/ML Vial 6 MG IV (10:29)
[2023-02-14] MEDS: Morphine 4 MG/ML Syringe IV (10:36)
[2023-02-14] MEDS: Ketorolac 15 MG/ML Vial IV (10:37)
[2023-02-14] MEDS: Ampicillin/Sulbactam 3 GM in 0.9% Normal Saline (100mL MB+) 100 ML IV (10:51)
--- OUTSIDE RECORDS SUMMARY | 2023-02-14 10:55 | XMS RPT_ITS | CCD ---
Author Name Unknown Address [address] [place] [address] Organization [facility] Care Team Providers Care Earth Sciences Professor Name Role Phone Ricardo GREEN, Aubrey Knight Primary Care Provider [facility], [facility] Primary Care Provider Unav ailable Unavailable Primary Care Provider UnavailDEB Mon Referring Unavailable CHANTEL PEDRO Referring Unavailable AUBREY DAN Primary Care Unavailable AUBREY MEDINA Attending Unavailable [facility] Primary Care Unavailable CHANTEL PEDRO Attending Unavailable CHANTEL PEDRO Referring Unavailable [facility] Primary Care Unavailable CHANTEL PEDRO Attending Unavailable CHANTEL PEDRO Referring Unavailable [facility] Primary Care Unavailable CHANTEL PEDRO Attending Unavailable AUBREY DAN Primary Care Unavailable CHANTEL PEDRO Attending Unavailable CHANTEL PEDRO Referring Unavailable [facility] Primary Care Unavailable Allergies Allergy Classification Reported Allergen(s) Allergy Type Date of Onset Reaction(s) Facility (12 sources) bee venom Allergy to substance 0 Other, Unknown [facility] (12 sources) rice allergenic extract Drug Allergy 2 [facility] (12 sources) Contrast media Propensity to adverse reactions 3 Other [facility] (13 sources) Lisinopril; Translations: [LISINOPRIL] Allergy to substance 1 Cough, Other [facility] (12 sources) POISON EMMA EXTRACT Drug Allergy 0 Unknown [facility] (12 sources) Pollen Allergy to substance 5 Shortness of breath [facility] (12 sources) Niacin And Related Drug Intolerance 3 Hives, Other [facility] (2 sources) Grass pollen; Translations: [GRASS POLLEN] Propensity to adverse reactions 5 [facility] Work Phone: (1 source) Lisinopril Drug Allergy 1 Cough [facility] Work Phone: (2 sources) Pollen; Translations: [POLLEN] Propensity to adverse reactions 5 [facility] Work Phone: (2 sources) Flavoring Agent (Bulk); Translations: [FLAVORING AGENT (BULK)] Drug Allergy 3 Unknown [facility] Work Phone: (1 source) OTHER; Translations: [OTHER] Propensity to adverse reactions (disorder) 5 [facility] Repository Medications Current Medications Medication Drug Class(es) Dates Sig (Normalized) Sig (Original) amoxicillin 875 mg / clavulanate 125 mg oral tablet (1 source) Penicillin-class Antibacterial Start: 12-24-2022 End: 01-03-2023 take 1 tablet by mouth twice daily amoxicillin-clav ulanate potassium (AUGMENTIN) 875-125 mg per tablet Take 1 tablet by mouth two times a day for 10 days. 20 tablet 0 12/24/2022 01/03/2023 Active Completed/Discontinued Medications Medication Drug Class(es) Dates Sig (Normalized) Sig (Original) acetaminophen 325 mg / oxyCODONE hydrochloride 5 mg oral tablet (1 source) Opioid Agonist End: 10-07-2022 take 1 tablet by mouth twice daily oxyCODONE-acetamin ophen (Percocet) 5-325 MG tablet (Schedule II Drug) TAKE 1 TABLET BY MOUTH TWICE DAILY Oral for 28 0 10/07/2022 Discontinued (Other) [id number] 200 actuat albuterol 0.09 mg/actuat metered dose inhaler (14 sources) beta2-Adrenergic Agonist Start: 12-24-2022 take 2 puff(s) by inhalation every six hours as needed albuterol HFA (PROVENTIL HFA, VENTOLIN HFA) 90 mcg/actuation inhaler Inhale 2 Puffs as instructed every 6 hours as needed. 8 g 0 12/24/2022 Active Problems Active Problems Problem Classification Problem Date Documented Da te Episodic/Chronic Administrative/social admission (1 source) Repeated prescription; Translations: [Encounter for issue of repeat prescription] 12-24-2022 Episodic Anxiety disorders (1 source) Acute stress disorder; Translations: [Acute stress reaction] Onset: 1 11-07-2010 Chronic Asthma (20 sources) Allergic asthma; Translations: [Unspecified asthma, uncomplicated] Onset: 8 10-07-2022 Chronic Coronary atherosclerosis and other heart disease (12 sources) Coronary atherosclerosis; Translations: [Atherosclerotic heart disease of [place] coronary artery without angina pectoris] Onset: 3 10-07-2022 Chronic Coronary atherosclerosis and other heart disease (12 sources) Stented coronary artery; Translations: [Presence of coronary angioplasty implant and graft] Onset: 3 10-07-2022 Episodic Diabetes mellitus without complication (14 sources) Type 2 diabetes mellitus; Translations: [Type 2 diabetes mellitus without complications] Onset: 1 10-07-2022 Chronic Disorders of lipid metabolism (20 sources) Dyslipidemia; Translations: [Hyperlipidemia, unspecified] Onset: 1 10-07-2022 Chronic Disorders of teeth and jaw (2 sources) Toothache; Translations: [Other specified disorders of teeth and supporting structures] 12-24-2022 Episodic Esophageal disorders (13 sources) Gastroesophageal reflux disease; Translations: [Gastro-esophageal reflux disease without esophagitis] Onset: 1 10-07-2022 Chronic Essential hypertension (13 sources) Hypertensive disorder; Translations: [Essential (primary) hypertension] Onset: 1 10-07-2022 Chronic Joint disorders and dislocations; trauma-related (13 sources) Chondromalacia of bilateral patellas; Translations: [Chondromalacia patellae, right knee] Onset: 2 10-07-2022 Chronic Other gastrointestinal disorders (13 sources) Irritable bowel syndrome; Translations: [Irritable bowel syndrome without diarrhea] Onset: 1 10-07-2022 Chronic Other nervous system disorders (3 sources) Cervical myelopathy; Translations: [Disease of spinal cord, unspecified] 10-07-2022 Chronic Other nervous system disorders (13 sources) Chronic pain syndrome; Translations: [Chronic pain syndrome] Onset: 3 10-07-2022 Chronic Other nervous system disorders (3 sources) Spinal cord disease; Translations: [Disease of spinal cord, unspecified] Onset: 3 11-11-2022 Chronic Other nervous system disorders (1 source) Disease of spinal cord, unspecified; Translations: [Disease of spinal cord, unspecified (HCC)] Onset: 3 Chronic Peripheral and visceral atherosclerosis (12 sources) Intermittent claudication; Translations: [Peripheral vascular disease, unspecified] Onset: 3 10-07-2022 Chronic Spondylosis; intervertebral disc disorders; other back problems (12 sources) Degeneration of lumbar intervertebral disc; Translations: [Other intervertebral disc degeneration, lumbar region] Onset: 3 10-07-2022 Chronic Spondylosis; intervertebral disc disorders; other back problems (6 sources) Spinal stenosis of lumbar region; Translations: [Spinal stenosis, lumbar region with neurogenic claudication] Onset: 3 10-07-2022 Episodic Substance-related disorders (13 sources) Tobacco dependence syndrome; Translations: [Nicotine dependence, unspecified, uncomplicated] Onset: 1 10-07-2022 Chronic Unclassified (1 source) Acute cough; Translations: [Acute cough] Onset: 3 Past or Other Problems Problem Classification Problem Date Documented Da te Episodic/Chronic Headache; including migraine (13 sources) Headache; Translations: [Headache] Onset: 08-11-2007 10-07-2022 Episodic Other connective tissue disease (13 sources) Neuropathy; Translations: [Neuralgia, neuritis, and radiculitis, unspecified] Onset: 12-31-2004 10-07-2022 Episodic Other liver diseases (13 sources) Elevated liver enzymes level; Translations: [Abnormal levels of other serum enzymes] Onset: 08-25-2010 10-07-2022 Episodic Other skin disorders (1 source) Disorder of skin; Translations: [Other specified disorders of the skin and subcutaneous tissue] Onset: 12-31-2004 11-07-2010 Episodic Other skin disorders (1 source) Sebaceous cyst of skin; Translations: [Sebaceous cyst] Onset: 06-01-2008 11-07-2010 Episodic Results Test Name Value Interpretation Reference Range Facil ity Vital Signs Date Time Vital Sign Value Performing Clinician Faci chelsey 12-24-2022 09:18-0500 Body temperature 97.9 [degF] Kelly Waters [employer] 9 THRU 12 TEACHER.HYDROTREATER OPERATOR Work Phone: [facility] 12-24-2022 09:18-0500 Body weight 115.39 kg Kelly Waters [employer] 9 THRU 12 TEACHER.HYDROTREATER OPERATOR Work Phone: [facility] 12-24-2022 09:18-0500 Diastolic blood pressure 74 mm[Hg] Kelly Waters [employer]ACH[employer] 9 THRU 12 TEACHER.HYDROTREATER OPERATOR Work Phone: [facility] 12-24-2022 09:18-0500 Heart rate 105 /min Kelly Waters [employer]ACH[employer] 9 THRU 12 TEACHER.HYDROTREATER OPERATOR Work Phone: [facility] 12-24-2022 09:18-0500 Respiratory rate 21 /min Kelly Waters [employer] 9 THRU 12 TEACHER.HYDROTREATER OPERATOR Work Phone: [facility] 12-24-2022 09:18-0500 SaO2% (BldA) [Mass fraction] 96 % Kelly Waters [employer] 9 THRU 12 TEACHER.HYDROTREATER OPERATOR Work Phone: [facility] 12-24-2022 09:18-0500 Systolic blood pressure 128 mm[Hg] Kelly Waters [employer]ACH[employer] 9 THRU 12 TEACHER.HYDROTREATER OPERATOR Work Phone: [facility] 12-07-2022 11:06-0400 Diastolic blood pressure 84 mm[Hg] Aubrey Medina MD Work Phone: [facility] 12-07-2022 11:06-0400 Systolic blood pressure 136 mm[Hg] Aubrey Medina MD Work Phone: [facility] 12-07-2022 10:03-0400 Body height 182.9 cm Aubrey Medina MD Work Phone: [facility] 12-07-2022 10:03-0400 Body mass index (BMI) [Ratio] 34.86 kg/m2 Aubrey Medina MD Work Phone: [facility] 12-07-2022 10:03-0400 Body temperature 98.2 [degF] Aubrey Medina MD Work Phone: [facility] 12-07-2022 10:03-0400 Body weight 116.57 kg Aubrey Medina MD Work Phone: [facility] 12-07-2022 10:03-0400 Heart rate 93 /min Aubrey Medina MD Work Phone: [facility] 12-07-2022 10:03-0400 Respiratory rate 16 /min Aubrey Medina MD Work Phone: [facility] 10-07-2022 14:02-0400 Body height 182.9 cm Chantel Hartzler PA-C Work Phone: [facility] 10-07-2022 14:02-0400 Body mass index (BMI) [Ratio] 34.72 kg/m2 Chantel Hartzler PA-C Work Phone: [facility] 10-07-2022 14:02-0400 Body temperature 98.4 [degF] Chantel Hartzler PA-C Work Phone: [facility] 10-07-2022 14:02-0400 Body weight 116.12 kg Chantel Hartzler PA-C Work Phone: [facility] 10-07-2022 14:02-0400 Diastolic blood pressure 88 mm[Hg] Chantel Hartzler PA-C Work Phone: [facility] 10-07-2022 14:02-0400 Heart rate 105 /min Chantel Hartzler PA-C Work Phone: [facility] 10-07-2022 14:02-0400 Respiratory rate 16 /min Chantel Hartzler PA-C Work Phone: [facility] 10-07-2022 14:02-0400 Systolic blood pressure 145 mm[Hg] Chantel Hartzler PA-C Work Phone: [facility] Encounters Encounter Date Encounter Type Care Provider Facility Start: 02-04-2023 End: 02-04-2023 ambulatory [facility] Facility:[facility] Start: 12-24-2022 End: 12-24-2022 [facility] Start: 12-24-2022 End: 12-24-2022 Patient encounter procedure Kelly Waters [employer] 9 THRU 12 TEACHER.HYDROTREATER OPERATOR Work Phone: [facility] Procedures Date Procedure Procedure Detail Performing Clinician Start: 12-07-2022 Follow-up visit Follow-up AUBREY HOWELL ZFELD Plan of Treatment Date Care Activity Detail Author Start: 02-27-2030 Zoster Vaccines (1 of 2) Zoster Vacc ricki (1 of 2) [facility] Start: 12-25-2023 BP Controlled (<130/80) BP Controlle d (<130/80) [facility] Start: 11-11-2022 End: 11-11-2022 Patient encounter procedure [facility] Start: 10-16-2022 Covid-19 Vaccine () Covid-19 Vaccine () [facility] Start: 10-16-2022 Influenza vaccination Influenza Vacc ine (#1) [facility] Start: 10-07-2022 End: 10-08-2023 MR Cervical spine WO contrast MR cervical spine wo contrast Imaging Routine Cervical myelopathy (HCC) Expected: 10/07/2022, Expires: 10/08/2023 [facility] Immunizations Immunization Date Immunization Notes Care Provider Ahmet nguyen 11-08-2013 influenza, seasonal, injectable Chantel Hartzler PA-C Work Phone: [facility] 11-08-2013 influenza virus vacc ine, unspecified formulation Chantel Hartzler PA-C Work Phone: [facility] 12-20-2012 influenza, seasonal, injectable Chantel Hartzler PA-C Work Phone: [facility] 12-20-2012 influenza, seasonal, injectable, preservative free Chantel Hartzler PA-C Work Phone: [facility] 04-25-2012 pneumococcal polysac charide vaccine, 23 valent Chantel Hartzler PA-C Work Phone: [facility] 04-25-2012 pneumococcal vaccine , unspecified formulation Chantel Hartzler PA-C Work Phone: [facility] 12-25-2010 influenza virus vacc ine, unspecified formulation Chantel Hartzler PA-C Work Phone: [facility] 08-25-2010 pneumococcal polysac charide vaccine, 23 valent Chantel Willis MESSINA-C Work Phone: [facility] 12-31-2008 novel influenza-H1N1 -09, preservative-free, injectable Chantel Kelleylupe MESSINA-C Work Phone: [facility] 11-28-2008 varicella virus vaccine Stewo bonnie Kelleylupe PA-C Work Phone: [facility] 01-30-2005 varicella virus vaccine Stewo n Warrenjuneer PA-C Work Phone: [facility] 07-23-2003 tetanus toxoid, redu [place] diphtheria toxoid, and acellular pertussis vaccine, adsorbed Chantel Kelleylupe PA-C Work Phone: [facility] Payers Date Payer Category Payer Medicaid [id number] 2022 Medicaid [id number] 2022 Medicaid [id number] Social History Date Type Detail Facility Start: 10-07-2022 End: 12-24-2022 Tobacco smoking status IAIS Smokes tobacco daily [facility] History of tobacco use Cigarette Smoker [facility] Start: 10-07-2022 End: 12-24-2022 Cigarettes smoked current (pack per day) - Reported 2 [facility] Start: 10-07-2022 Tobacco use and exposure Smoke less tobacco non-user [facility] Start: 10-07-2022 End: 12-07-2022 Alcohol intake Lifetime non-drinker (finding) [facility] Start: 1980 Sex Assigned At Not on file [facility] Start: 10-07-2022 End: 12-24-2022 Gender identity Not on file [facility] Start: 09-27-2022 End: 10-07-2022 Exposure to SARS-CoV-2 (event) Not sure [facility] History of tobacco use Passive smoker [facility] Start: 12-24-2022 Tobacco use and exposure Formzee r smokeless tobacco user [facility] History of tobacco use Chews Tobacco [facility] Start: 12-24-2022 Alcohol intake Current non-dr knife changer of alcohol (finding) [facility] Clinical Notes 10-07-2022 to 02-04-2023 Kelly Waters APRN.HYDROTREATER OPERATOR - 12/24/2022 9:24 AM Rebecca Medina MD - 12/07/2022 10:15 AM EDTTelephone Encounter - Vidya Chicas MA - 10/15/2022 7:06 AM EDT Note Date & Type Note Facility 02-04-2023 Note HNO ID: [id number] Author: Deb Phelps APRN.HYDROTREATER OPERATOR Service: ? Author Type: Nurse Practitioner Type: Progress Notes Filed: 02/04/2023 6:35 PM Note Text: Subjective The history is provided by the patient. No fitness and wellness director was used. HPI Kike Palmer is a 42 year old male who presents today for CC of cough, congestion, wheezing for a month. He is also having runny nose, sinus pressure and congestion. He has used inhaler and otc cold medications without relief. He did not do any testing. He does have a h/o asthma. He is an everyday smoker. BP 138/80 Pulse 99 Temp 37.2 ?C (98.9 ?F) Resp 16 Wt 118.5 kg (261 lb 3.2 oz) SpO2 99% Social History Tobacco Use Smoking status: Every Day Packs/day: 1.00 Years: 16.00 Additional pack years: 0.00 Total pack years: 16.00 Types: Cigarettes Passive exposure: Current Smokeless tobacco: Former Types: Chew Substance Use Topics Alcohol use: No Drug use: No PAST MEDICAL HISTORY Diagnosis Date Diabetic peripheral neuropathy (HCC) 2002 GERD (gastroesophageal reflux disease) Hyperlipidemia 2012 Joint pain Smoker Type II or unspecified type diabetes mellitus without mention of complication, not stated as uncontrolled Unspecified asthma, with status asthmaticus I have confirmed and edited as necessary, the [facility] Review of Systems Constitutional: Negative for chills, fever and malaise/fatigue. HENT: Positive for congestion and sinus pain. Negative for ear pain and sore throat. Respiratory: Positive for cough, shortness of breath and wheezing. Negative for sputum production. Cardiovascular: Negative for chest pain. Gastrointestinal: Negative for abdominal pain, diarrhea, nausea and vomiting. Musculoskeletal: Negative for myalgias. Neurological: Positive for headaches. Objective Physical Exam Vitals and nursing note reviewed. Constitutional: Appearance: He is not toxic-appearing. HENT: Head: Normocephalic and atraumatic. Right Ear: Tympanic membrane, ear canal and external ear normal. Left Ear: Tympanic membrane, ear canal and external ear normal. Nose: Mucosal edema, congestion and rhinorrhea present. Right Sinus: Maxillary sinus tenderness and frontal sinus tenderness present. Left Sinus: Maxillary sinus tenderness and frontal sinus tenderness present. Mouth/Throat: Pharynx: Uvula midline. No oropharyngeal exudate or posterior oropharyngeal erythema. Tonsils: No tonsillar abscesses. Cardiovascular: Rate and Rhythm: Normal rate and regular rhythm. Heart sounds: Normal heart sounds. Pulmonary: Effort: Pulmonary effort is normal. Breath sounds: Decreased breath sounds, wheezing and rhonchi present. No rales. Lymphadenopathy: Head: Right side of head: No submental, submandibular, tonsillar or preauricular adenopathy. Left side of head: No submental, submandibular, tonsillar or preauricular adenopathy. Cervical: No cervical adenopathy. Right cervical: No superficial cervical adenopathy. Left cervical: No superficial cervical adenopathy. Neurological: Mental Status: He is alert. ASSESSMENT/PLAN: 1. Acute cough - ICD9: 786.2, ICD10: R05.1 (primary diagnosis) Tessalon perls, albuterol, prednisone burst - XR CHEST 2V FRONTAL/LAT RESULT: Lines, tubes, and devices: None. Lungs and pleura: No consolidation. No lung mass. No pleural effusion. No pneumothorax. Cardiomediastinal silhouette: Normal cardiomediastinal silhouette. Bones and soft tissues: Unremarkable. IMPRESSION: No acute radiographic abnormality. Interpreted by : HEIDI CROOKS MD 2. Sinobronchitis - ICD9: 473.9, 490, ICD10: J32.9, J40 - Will begin treatment with Doxycycline - Supportive care with plenty of fluids, rest, and analgesia prn. - Follow up in one week if symptoms persist or worsen. Diagnosis and treatment plan were discussed and questions were answered to the patient's satisfaction. Pt acknowledged understanding of concepts and follow up plan. Specific signs and symptoms that would indicate the need for higher level of care were discussed in detail warranting prompt ER evaluation. Deb Phelps APRN.[facility] 02-04-2023 Note HNO ID: [id number] Author: Monica Hernandez RT(R) Service: ? Author Type: Special Needs Tutor Type: Progress Notes Filed: 02/04/2023 5:45 PM Note Text: Radiology Service Progress Note PATIENT NAME: Kike Palmer DATE OF SERVICE: February 04, 2023 TIME: 5:36 PM PATIENT IDENTITY VERIFICATION COMPLETED USING TWO (2) IDENTIFIERS: Name and Date of confirmed by patient verbally. FALL SCREENING: Has the patient had 2 falls in the last year or 1 fall with injury or currently using an Ambulatory Assistive Device (Walker, Cane, Wheelchair, Crutches, etc.)? No PATIENT GENDER DATA: Male PATIENT RELEVANT IMPLANT DATA REVIEWED: Yes RADIOLOGY DEPARTMENT: General X-ray: Exam(s) Completed: Chest X-Ray PERIPHERAL IV DATA: Not applicable SIGNED BY: RT José Miguel(R) February 04, 2023 5:36 PM [facility] 12-24-2022 Note HNO ID: [id number] Author: Kelly Waters APRN.HYDROTREATER OPERATOR Service: ? Author Type: Nurse Practitioner Type: Progress Notes Filed: 12/24/2022 9:37 AM Note Text: This note was created using NoteWriter. Subjective Kike Palmer is a 42 year old male. 42 year old male with PMH hyperlipidemia, HTN, DM, asthma, GERD presents for dental complaints. Acute onset 2 weeks ago Left upper +redness +sensitivity to hot and cold +pain with chewing. States that he has been experiencing a difficult time with establishing with dentist They need to come out and get dentures Endorses history of chew and tobacco usage. The history is provided by the patient. No fitness and wellness director was used. Dental Problem This is a recurrent problem. The current episode started 1 to 4 weeks ago. The problem occurs constantly. The problem has been gradually worsening. Pertinent negatives include no abdominal pain, anorexia, arthralgias, change in bowel habit, chest pain, chills, congestion, coughing, diaphoresis, fatigue, fever, headaches, joint swelling, myalgias, nausea, neck pain, numbness, rash, sore throat, swollen glands, urinary symptoms, vertigo, visual change, vomiting or weakness. Nothing aggravates the symptoms. He has tried nothing for the symptoms. The treatment provided no relief. PAST MEDICAL HISTORY Diagnosis Date Diabetic peripheral neuropathy (HCC) 2002 GERD (gastroesophageal reflux disease) Hyperlipidemia 2011 Joint pain Smoker Type II or unspecified type diabetes mellitus without mention of complication, not stated as uncontrolled Unspecified asthma, with status asthmaticus PAST SURGICAL HISTORY Procedure Laterality Date VASECTOMY UNI/BI SPX W/POSTOP SEMEN EXAMS ALLERGIES Rice Flavor [Flavoring Agent (Bulk)], Grass Pollen, Lisinopril, and Pollen MEDICATIONS XTAMPZA ER 18 mg CSpT Take 1 capsule by mouth every 12 hours. tiZANidine (ZANAFLEX) 4 mg tablet TAKE 1 TABLET BY MOUTH EVERY EVENING Oral for 28 amoxicillin-clavulanate potassium (AUGMENTIN) 875-125 mg per tablet Take 1 tablet by mouth two times a day for 10 days. Chlorhexidine Gluconate (PERIDEX) 0.12 % solution Use 15 mL as instructed two times a day. Rinse around mouth for 30 seconds then expectorate albuterol HFA (PROVENTIL HFA, VENTOLIN HFA) 90 mcg/actuation inhaler Inhale 2 Puffs as instructed every 6 hours as needed. naproxen (NAPROSYN) 500 mg tablet Take 1 tablet by mouth two times a day as needed (pain/inflammation, take with food.). predniSONE 20 mg tablet Take 2 tablets by mouth daily for 4 days (Patient not taking: Reported on 12/24/2022) codeine-guaiFENesin 10-100 mg/5 mL syrup Take 5-10 mL by mouth four times daily as needed for Cough. May cause drowsiness. (Patient not taking: Reported on 12/24/2022) buPROPion SR 150 mg 12 hr tablet Take 1 tablet by mouth twice daily. (Patient not taking: Reported on 12/24/2022) LORazepam (ATIVAN) 1 mg tablet Take 1 tablet by mouth every 8 hours as needed. (Patient not taking: Reported on 12/24/2022) glipiZIDE XL (GLUCOTROL XL) 5 mg 24 hr tablet Take 1 tablet by mouth once daily. (Patient not taking: Reported on 12/24/2022) losartan (COZAAR) 50 mg ORAL tablet Take 2 tablets by mouth once daily. (Patient not taking: Reported on 12/24/2022) fenofibrate 200 mg ORAL capsule Take 1 capsule by mouth daily with breakfast. (Patient not taking: Reported on 12/24/2022) omega-3 acid ethyl esters (LOVAZA) 1 gram ORAL capsule Take 2 capsules by mouth twice daily. (Patient not taking: Reported on 12/24/2022) Inhalational Spacing Device (AEROCHAMBER) [facility] Sp[facility] 1 Device. Use with Inhaler (Patient not taking: Reported on 12/24/2022) omeprazole 20 mg ORAL capsule Take 1 capsule by mouth twice daily. (Patient not taking: Reported on 12/24/2022) metFORMIN 1,000 mg ORAL tablet Take 1 tablet by mouth twice daily. (Patient not taking: Reported on 12/24/2022) FAMILY HISTORY Problem Relation Age of Onset Diabetes Mother Diabetes Father Arthritis Mother Social History Tobacco Use Smoking status: Every Day Packs/day: 1.00 Years: 16.00 Additional pack years: 0.00 Total pack years: 16.00 Types: Cigarettes Passive exposure: Current Smokeless tobacco: Former Types: Chew Substance Use Topics Alcohol use: No Drug use: No Review of Systems Constitutional: Negative for chills, diaphoresis, fatigue and fever. HENT: Positive for dental problem. Negative for congestion and sore throat. Eyes: Negative for pain, discharge, redness and itching. Respiratory: Negative for apnea, cough and chest tightness. Cardiovascular: Negative for chest pain. Gastrointestinal: Negative for abdominal pain, anorexia, change in bowel habit, nausea and vomiting. Musculoskeletal: Negative for arthralgias, joint swelling, myalgias and neck pain. Skin: Negative for rash. Allergic/Immunologic: Negative for environmental allergies, food allergies and immunocompromised state. (more content not included)... [facility] 12-24-2022 History of Presen t illness Narrative This note was created using NoteWriter. Subjective Kike Palmer is a 42 year old male. 42 year old male with PMH hyperlipidemia, HTN, DM, asthma, GERD presents for dental complaints. Acute onset 2 weeks ago Left upper +redness +sensitivity to hot and cold +pain with chewing. States that he has been experiencing a difficult time with establishing with dentist They need to come out and get dentures Endorses history of chew and tobacco usage. The history is provided by the patient. No fitness and wellness director was used. Dental Problem This is a recurrent problem. The current episode started 1 to 4 weeks ago. The problem occurs constantly. The problem has been gradually worsening. Pertinent negatives include no abdominal pain, anorexia, arthralgias, change in bowel habit, chest pain, chills, congestion, coughing, diaphoresis, fatigue, fever, headaches, joint swelling, myalgias, nausea, neck pain, numbness, rash, sore throat, swollen glands, urinary symptoms, vertigo, visual change, vomiting or weakness. Nothing aggravates the symptoms. He has tried nothing for the symptoms. The treatment provided no relief. PAST MEDICAL HISTORY Diagnosis Date Diabetic peripheral neuropathy (HCC) 2002 GERD (gastroesophageal reflux disease) Hyperlipidemia 2011 Joint pain Smoker Type II or unspecified type diabetes mellitus without mention of complication, not stated as uncontrolled Unspecified asthma, with status asthmaticus PAST SURGICAL HISTORY Procedure Laterality Date VASECTOMY UNI/BI SPX W/POSTOP SEMEN EXAMS ALLERGIES Rice Flavor [Flavoring Agent (Bulk)], Grass Pollen, Lisinopril, and Pollen MEDICATIONS XTAMPZA ER 18 mg CSpT Take 1 capsule by mouth every 12 hours. tiZANidine (ZANAFLEX) 4 mg tablet TAKE 1 TABLET BY MOUTH EVERY EVENING Oral for 28 amoxicillin-clavulanate potassium (AUGMENTIN) 875-125 mg per tablet Take 1 tablet by mouth two times a day for 10 days. Chlorhexidine Gluconate (PERIDEX) 0.12 % solution Use 15 mL as instructed two times a day. Rinse around mouth for 30 seconds then expectorate albuterol HFA (PROVENTIL HFA, VENTOLIN HFA) 90 mcg/actuation inhaler Inhale 2 Puffs as instructed every 6 hours as needed. naproxen (NAPROSYN) 500 mg tablet Take 1 tablet by mouth two times a day as needed (pain/inflammation, take with food.). predniSONE 20 mg tablet Take 2 tablets by mouth daily for 4 days (Patient not taking: Reported on 12/24/2022) codeine-guaiFENesin 10-100 mg/5 mL syrup Take 5-10 mL by mouth four times daily as needed for Cough. May cause drowsiness. (Patient not taking: Reported on 12/24/2022) buPROPion SR 150 mg 12 hr tablet Take 1 tablet by mouth twice daily. (Patient not taking: Reported on 12/24/2022) LORazepam (ATIVAN) 1 mg tablet Take 1 tablet by mouth every 8 hours as needed. (Patient not taking: Reported on 12/24/2022) glipiZIDE XL (GLUCOTROL XL) 5 mg 24 hr tablet Take 1 tablet by mouth once daily. (Patient not taking: Reported on 12/24/2022) losartan (COZAAR) 50 mg ORAL tablet Take 2 tablets by mouth once daily. (Patient not taking: Reported on 12/24/2022) fenofibrate 200 mg ORAL capsule Take 1 capsule by mouth daily with breakfast. (Patient not taking: Reported on 12/24/2022) omega-3 acid ethyl esters (LOVAZA) 1 gram ORAL capsule Take 2 capsules by mouth twice daily. (Patient not taking: Reported on 12/24/2022) Inhalational Spacing Device (AEROCHAMBER) [facility] Device. Use with Inhaler (Patient not taking: Reported on 12/24/2022) omeprazole 20 mg ORAL capsule Take 1 capsule by mouth twice daily. (Patient not taking: Reported on 12/24/2022) metFORMIN 1,000 mg ORAL tablet Take 1 tablet by mouth twice daily. (Patient not taking: Reported on 12/24/2022) FAMILY HISTORY Problem Relation Age of Onset Diabetes Mother Diabetes Father Arthritis Mother Social History Tobacco Use Smoking status: Every Day Packs/day: 1.00 Years: 16.00 Additional pack years: 0.00 Total pack years: 16.00 Types: Cigarettes Passive exposure: Current Smokeless tobacco: Former Types: Chew Substance Use Topics Alcohol use: No Drug use: No Review of Systems Constitutional: Negative for chills, diaphoresis, fatigue and fever. HENT: Positive for dental problem. Negative for congestion and sore throat. Eyes: Negative for pain, discharge, redness and itching. Respiratory: Negative for apnea, cough and chest tightness. Cardiovascular: Negative for chest pain. Gastrointestinal: Negative for abdominal pain, anorexia, change in bowel habit, nausea and vomiting. Musculoskeletal: Negative for arthralgias, joint swelling, myalgias and neck pain. Skin: Negative for rash. Allergic/Immunologic: Negative for environmental allergies, food allergies and immunocompromised state. Neurological: Negative for vertigo, weakness, numbness and headaches. Hematological: Negative for adenopathy. Does not bruise/bleed easily. Psychiatric/Behavioral: Negative for agitation and behavioral problems. Objective BP 128/74 Pulse 105 Temp 36.6 C (97.9 F) Resp 21 Wt 115.4 kg (254 lb 6.4 oz) SpO2 96% Physical Exam Vitals and nursing note reviewed. Constitutional: General: He is not in acute distress. Appearance: Normal appearance. He is not ill-appearing, toxic-appearing or diaphoretic. HENT: Head: Normocephalic and atraumatic. Right Ear: External ear normal. Left Ear: External ear normal. Nose: Nose normal. No congestion or rhinorrhea. Mouth/Throat: Mouth: Mucous membranes are moist. Dentition: Abnormal dentition. Dental tenderness, gingival swelling and dental caries present. Pharynx: Oropharynx is clear. No oropharyngeal exudate or posterior oropharyngeal erythema. Comments: Diffuse and widespread dental decay Missing dentition Inflamed and recessed gums Uvula midline. Handling secretions. Eyes: General: Right eye: No discharge. Left eye: No discharge. Extraocular Movements: Extraocular movements intact. Conjunctiva/sclera: Conjunctivae normal. Pupils: Pupils are equal, round, and reactive to light. Cardiovascular: Rate and Rhythm: Normal rate and regular rhythm. Pulses: Normal pulses. Heart sounds: Normal heart sounds. No murmur heard. No friction rub. No gallop. Pulmonary: Effort: Pulmonary effort is normal. No respiratory distress. Breath sounds: Normal breath sounds. No stridor. No wheezing, rhonchi or rales. Chest: Chest wall: No tenderness. Abdominal: General: Abdomen is flat. There is no distension. Palpations: Abdomen is soft. There is no mass. Tenderness: There is no abdominal tenderness. There is no guarding or rebound. Hernia: No hernia is present. Musculoskeletal: General: No swelling, tenderness, deformity or signs of injury. Normal range of motion. Cervical back: Normal range of motion and neck supple. No rigidity or tenderness. Right lower leg: No edema. Left lower leg: No edema. Lymphadenopathy: Cervical: No cervical adenopathy. Skin: General: Skin is warm and dry. Capillary Refill: Capillary refill takes less than 2 seconds. Coloration: Skin is not jaundiced or pale. Findings: No bruising, lesion or rash. Neurological: General: No focal deficit present. Mental Status: He is alert and oriented to person, place, and time. Cranial Nerves: No cranial nerve deficit. Sensory: No sensory deficit. Motor: No weakness. Coordination: Coordination normal. Gait: Gait normal. Deep Tendon Reflexes: Reflexes normal. Psychiatric: Mood and Affect: Mood normal. Behavior: Behavior normal. Thought Content: Thought content normal. Assessment and Plan ASSESSMENT/PLAN: 1. Pain, dental - ICD9: 525.9, ICD10: K08.89 (primary diagnosis) X 2 weeks History of dental complaints. No present dentist. No red flags RX Augmentin, Peridex, and Naprosyn Follow up with dentist REJI 2. Dental decay - ICD9: 521.00, ICD10: K02.9 X 2 weeks History of dental complaints. No present dentist. No red flags RX Augmentin, Peridex, and Naprosyn Follow up with dentist REJI 3. Encounter for medication refill. 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 presents with low back pain. He underwent an urgent L2-[address] Medina in 2013. Since that surgery he has had chronic low back pain. For the past 2 to 3 years he has been having worsening leg symptoms. He has bilateral leg pain, numbness, weakness, and cramping. He has had multiple falls and feels unsteady on his feet. He denies neck pain but for the past several months has noticed bilateral shoulder and arm pain, numbness, and weakness. He has difficulty with fine motor movements in the hands and is dropping items. He has been seeing pain management for the past several years with multiple lumbar injections, opioids, muscle relaxants, and anti-inflammatories. His symptoms are severe and significantly affecting his quality of life. Kike returns today for review of the MRI of the cervical spine as well as the lumbar spine. He states continued complaints of the cervical spine. He has mild neck pain but reports a deep aching painful sensation in his right shoulder and arm. He states at times he feels like his arm locks up and any repetitive movement is very painful for him. He also reports continued issues with his low back. He states that he feels like his calves are in constant charley horses and at times he feels that his feet are locking up. He has difficulty standing and/or walking for long periods of time. Due to his symptoms he has been unable to work since this past July. Chief Complaint Patient presents with Follow-up MRI f/u Conservative Treatments: Physical Therapy: yes NSAID's: yes, could not tolerate Narcotics: yes Muscle relaxants: yes Epidural injections: yes, for the past 2 years, no longer helping Chiropractor: no Past Medical History: Past Medical History: Diagnosis Date Asthma Diabetes ([facility]) Heart attack ([facility]) 2018 History of lumbar laminectomy L2-L5 Past Surgical History: Past Surgical History: Procedure Laterality Date LUMBAR LAMINECTOMY L2-L5 Home Medications: Prior to Admission medications Medication Sig Start Date End Date Taking? Authorizing Provider albuterol 108 (90 Base) MCG/ACT inhaler INHALE 2 PUFFS EVERY 4 HOURS NEEDED FOR WHEEZING Inhalation for 17 Yes Historical Provider, insulin glargine (Lantus) 100 UNIT/ML injection Inject under the skin Nightly. 180 Units Yes Historical Provider, insulin lispro protamine-insulin lispro (HumaLOG MIX 50/50 KWIKPEN) (50-50) 100 UNIT/ML injection Inject under the skin 2 times daily (with meals). Yes Historical Provider, oxyCODONE ER (Xtampza ER) 13.5 MG 12 hr abuse-deterrent capsule Must be taken with food. Do not chew or crush Yes Historical Provider, tiZANidine (Zanaflex) 4 MG tablet TAKE 1 TABLET BY MOUTH EVERY EVENING Oral for 28 Yes Historical Provider, losartan (Cozaar) 50 MG tablet Take 50 mg by mouth in the morning. 10/07/22 Historical Provider, meloxicam (Mobic) 7.5 MG tablet TAKE 1 TABLET BY MOUTH EVERY DAY on a full stomach Oral for 30 10/07/22 Historical Provider, metFORMIN (Glucophage) 1000 MG tablet Take 1,000 mg by mouth in the morning and 1,000 mg in the evening. 10/07/22 Historical Provider, methylPREDNISolone (Medrol Dospak) 4 MG tablets TAKE BY MOUTH DIRECTED ON PACKAGE 07/27/22 10/07/22 Historical Provider, omega-3 (Fish Oil) 1000 MG capsule Take by mouth twice a day. 10/07/22 Historical Provider, oxyCODONE-acetaminophen (Percocet) 5-325 MG tablet (Schedule II Drug) TAKE 1 TABLET BY MOUTH TWICE DAILY Oral for 28 10/07/22 Historical Provider, venlafaxine (Effexor) 25 MG tablet every 12 hours. 10/07/22 Historical Provider, Allergies: Pollen extract, Bee venom, Rice, Lisinopril, Niacin and related, Poison emma extract, and Red dye Social History: TOBACCO: reports that he has been smoking cigarettes. He has been smoking an average of 2 packs per day. He has never used smokeless tobacco. ETOH: reports no history of alcohol use. RECREATIONAL DRUG USE: Social History Substance and Sexual Activity Drug Use Never Family History: Family History Problem Relation Name Age of Onset Diabetes Mother Fibromyalgia Mother Rheum arthritis Mother Diabetes Father Rheum arthritis Sister Rheum arthritis Sister Review of Systems: Review of Systems Constitutional: Negative for chills and fever. HENT: Negative for congestion, rhinorrhea and sore throat. Eyes: Negative for photophobia and visual disturbance. Respiratory: Negative for cough and shortness of breath. Cardiovascular: Negative for chest pain and palpitations. Gastrointestinal: Negative for abdominal pain, nausea and vomiting. Genitourinary: Negative for decreased urine volume and difficulty urinating. Musculoskeletal: Positive for back pain and gait problem. Negative for neck pain. Skin: Negative for rash and wound. Neurological: Positive for weakness and numbness. Negative for seizures, speech difficulty and headaches. Psychiatric/Behavioral: Negative for behavioral problems and confusion. Physical Examination: Vitals: 12/07/22 1106 BP: 136/84 Pulse: Resp: Temp: Physical Exam Constitutional: Appearance: Normal appearance. HENT: Head: Normocephalic and atraumatic. Nose: Nose normal. Mouth/Throat: Mouth: Mucous membranes are moist. Pharynx: Oropharynx is clear. Eyes: Extraocular Movements: Extraocular movements intact. Conjunctiva/sclera: Conjunctivae normal. Cardiovascular: Rate and Rhythm: Normal rate and regular rhythm. Pulmonary: Effort: Pulmonary effort is normal. No respiratory distress. Abdominal: General: There is no distension. Palpations: Abdomen is soft. Tenderness: There is no abdominal tenderness. Musculoskeletal: General: No tenderness. Normal range of motion. Cervical back: Normal range of motion and neck supple. Skin: General: Skin is warm and dry. Neurological: Mental Status: He is alert and oriented to person, place, and time. Sensory: Sensory deficit present. Motor: Weakness present. Comments: Motor strength 5/5 UE, 4-/5 RLE, 4/5 LLE Sensation decreased in RLE Absent DTR Negative Junior's Psychiatric: Mood and Affect: Mood normal. Behavior: Behavior normal. Neurologic Exam Mental Status Oriented to person, place, and time. Gait Severely unsteady, antalgic Results Labs: Last 24hrs No results found for this or any previous visit (from the past 24 hour(s)). Radiology Personal review: MRI of the cervical spine shows mild degenerative changes without significant central canal or foraminal stenosis MRI of the lumbar spine shows postoperative changes L3-L4 L4-L5 L5-S1. There is a disc bulge off to the left at L3-L4 that creates some left-sided lateral recess stenosis. There is facet and ligament hypertrophy that causes foraminal stenosis L5-S1 level bilaterally. ASSESSMENT / PLAN : I would not recommend any surgical intervention for him on the cervical spine. His right shoulder problems could be coming from rotator cuff, I recommended he see orthopedics for a right shoulder evaluation regarding this. Regarding his lumbar spine his symptoms do not seem to match up with findings on the MRI I am unsure further surgery on his lumbar spine gives him significant benefit at this time. We could consider L5 3 to S1 fusion with redo decompression at multiple levels if necessary in the future. For now I recommended through his pain management physician he have a spinal cord stimulator trial, if this significantly helps his symptoms a spinal cord stimulator placement may be the solution. He will follow-up with us in the future based on how he progresses with conservative treatment through his pain management physician. No diagnosis found. documented in this encounter [facility] 10-15-2022 Telephone encounter Note Received check out sheet and orders for patient Went to [facility] to start auth Case has already been created And is pending [facility] 10-15-2022 Miscellaneous Notes Received check out sheet and orders for patient Went to [facility] to start auth Case has already been created And is pending documented in this encounter [facility] 10-07-2022 History of Presen t illness Narrative NEUROSURGERY CONSULT NOTE Patient Name: Kike Palmer Patient : 1980 PCP: AUBREY DAN MD History of Present Illness: 42 y.o. presents with low back pain. He underwent an urgent L2-[address] Medina in 2013. Since that surgery he has had chronic low back pain. For the past 2 to 3 years he has been having worsening leg symptoms. He has bilateral leg pain, numbness, weakness, and cramping. He has had multiple falls and feels unsteady on his feet. He denies neck pain but for the past several months has noticed bilateral shoulder and arm pain, numbness, and weakness. He has difficulty with fine motor movements in the hands and is dropping items. He has been seeing pain management for the past several years with multiple lumbar injections, opioids, muscle relaxants, and anti-inflammatories. His symptoms are severe and significantly affecting his quality of life. Chief Complaint Patient presents with New Patient Back pain, hand, legs and shoulders Conservative Treatments: Physical Therapy: yes NSAID's: yes, could not tolerate Narcotics: yes Muscle relaxants: yes Epidural injections: yes, for the past 2 years, no longer helping Chiropractor: no Past Medical History: Past Medical History: Diagnosis Date Asthma Diabetes ([facility]) Heart attack (CMS/HCC) ([facility]) 2018 History of lumbar laminectomy L2-L5 Past Surgical History: Past Surgical History: Procedure Laterality Date LUMBAR LAMINECTOMY L2-L5 Home Medications: Prior to Admission medications Medication Sig Start Date End Date Taking? Authorizing Provider albuterol 108 (90 Base) MCG/ACT inhaler INHALE 2 PUFFS EVERY 4 HOURS NEEDED FOR WHEEZING Inhalation for 17 Yes Historical Provider, insulin glargine (Lantus) 100 UNIT/ML injection Inject under the skin Nightly. 180 Units Yes Historical Provider, insulin lispro protamine-insulin lispro (HumaLOG MIX 50/50 KWIKPEN) (50-50) 100 UNIT/ML injection Inject under the skin 2 times daily (with meals). Yes Historical Provider, oxyCODONE ER (Xtampza ER) 13.5 MG 12 hr abuse-deterrent capsule Must be taken with food. Do not chew or crush Yes Historical Provider, tiZANidine (Zanaflex) 4 MG tablet TAKE 1 TABLET BY MOUTH EVERY EVENING Oral for 28 Yes Historical Provider, losartan (Cozaar) 50 MG tablet Take 50 mg by mouth in the morning. 10/07/22 Historical Provider, meloxicam (Mobic) 7.5 MG tablet TAKE 1 TABLET BY MOUTH EVERY DAY on a full stomach Oral for 30 10/07/22 Historical Provider, metFORMIN (Glucophage) 1000 MG tablet Take 1,000 mg by mouth in the morning and 1,000 mg in the evening. 10/07/22 Historical Provider, methylPREDNISolone (Medrol Dospak) 4 MG tablets TAKE BY MOUTH DIRECTED ON PACKAGE 07/27/22 10/07/22 Historical Provider, omega-3 (Fish Oil) 1000 MG capsule Take by mouth twice a day. 10/07/22 Historical Provider, oxyCODONE-acetaminophen (Percocet) 5-325 MG tablet (Schedule II Drug) TAKE 1 TABLET BY MOUTH TWICE DAILY Oral for 28 10/07/22 Historical Provider, venlafaxine (Effexor) 25 MG tablet every 12 hours. 10/07/22 Historical Provider, Allergies: Pollen extract, Bee venom, Rice, Lisinopril, Niacin and related, Poison emma extract, and Red dye Social History: TOBACCO: reports that he has been smoking cigarettes. He has been smoking an average of 2 packs per day. He has never used smokeless tobacco. ETOH: reports no history of alcohol use. RECREATIONAL DRUG USE: Social History Substance and Sexual Activity Drug Use Never Family History: Family History Problem Relation Name Age of Onset Diabetes Mother Fibromyalgia Mother Rheum arthritis Mother Diabetes Father Rheum arthritis Sister Rheum arthritis Sister Review of Systems: Review of Systems Constitutional: Negative for chills and fever. HENT: Negative for congestion, rhinorrhea and sore throat. Eyes: Negative for photophobia and visual disturbance. Respiratory: Negative for cough and shortness of breath. Cardiovascular: Negative for chest pain and palpitations. Gastrointestinal: Negative for abdominal pain, nausea and vomiting. Genitourinary: Negative for decreased urine volume and difficulty urinating. Musculoskeletal: Positive for back pain and gait problem. Negative for neck pain. Skin: Negative for rash and wound. Neurological: Positive for weakness and numbness. Negative for seizures, speech difficulty and headaches. Psychiatric/Behavioral: Negative for behavioral problems and confusion. Physical Examination: Vitals: 10/07/22 1402 BP: (!) 145/88 Pulse: 105 Resp: 16 Temp: 36.9 C (98.4 F) Physical Exam Constitutional: Appearance: Normal appearance. HENT: Head: Normocephalic and atraumatic. Nose: Nose normal. Mouth/Throat: Mouth: Mucous membranes are moist. Pharynx: Oropharynx is clear. Eyes: Extraocular Movements: Extraocular movements intact. Conjunctiva/sclera: Conjunctivae normal. Cardiovascular: Rate and Rhythm: Normal rate and regular rhythm. Pulmonary: Effort: Pulmonary effort is normal. No respiratory distress. Abdominal: General: There is no distension. Palpations: Abdomen is soft. Tenderness: There is no abdominal tenderness. Musculoskeletal: General: No tenderness. Normal range of motion. Cervical back: Normal range of motion and neck supple. Skin: General: Skin is warm and dry. Neurological: Mental Status: He is alert and oriented to person, place, and time. Sensory: Sensory deficit present. Motor: Weakness present. Comments: Motor strength 5/5 UE, 4-/5 RLE, 4/5 LLE Sensation decreased in RLE Absent DTR Negative Junior's Psychiatric: Mood and Affect: Mood normal. Behavior: Behavior normal. Neurologic Exam Mental Status Oriented to person, place, and time. Gait Severely unsteady, antalgic Results Labs: Last 24hrs No results found for this or any previous visit (from the past 24 hour(s)). Radiology Personal review: No recent cervical or lumbar imaging. ASSESSMENT / PLAN : 42-year-old male with 10-year history of low back pain status post L2-[address] Medina. For the past 2 to 3 years he has had worsening low back pain, bilateral leg pain, numbness, and weakness. He also has a several month history of worsening arm pain, numbness, and weakness, as well as difficulty with fine motor movements, dropping items, and gait difficulties. He has no recent cervical and lumbar imaging. He has been through significant conservative treatment, including physical therapy, NSAIDs, muscle relaxants, opioids, and LESI through pain management, without improvement in his symptoms. I am concerned he may have recurrent or residual lumbar stenosis and recommended a lumbar MRI and lumbar x-rays. I am also concerned he is developing early cervical myelopathy and have ordered a cervical MRI and cervical x-rays to further evaluate. He will return to see Dr. Medina after imaging is completed, for further discussions. Patient was agreeable to the plan and I answered his questions. Diagnosis Plan 1. Cervical myelopathy (HCC) MR cervical spine wo contrast XR cervical spine complete 4 to 5 views 2. Spinal stenosis of lumbar region with neurogenic claudication MR lumbar spine wo contrast XR lumbar spine 4-5 view I have spent 45 minutes reviewing previous notes, test results, and face to face with the patient discussing the diagnosis and importance of compliance with the treatment plan, as well as documenting on the day of the visit. documented in this encounter [facility] documented in this encounter [facility]* Diagnosis Cervical myelopathy (HCC) Cervical spondylosis with myelopathy documented in this encounter [facility]* Diagnosis Spinal stenosis of lumbar region with neurogenic claudication documented in this encounter [facility]* Diagnosis Spinal stenosis, lumbar region with neurogenic claudication Disease of spinal cord, unspecified (HCC) documented in this encounter [facility]* Diagnosis Chronic pain syndrome- Primary documented in this encounter [facility] note* Diagnosis Pain, dental- Primary Unspecified disorder of the teeth and supporting structures Dental decay Unspecified dental caries Encounter for medication refill Issue of repeat prescriptions documented in this encounter [facility] Summary Purpose Family History No Family History Records FoundNo Family History Records FoundNo Family History Records Found Advance Directives No Advanced Directives Records FoundNo Advanced Directives Records FoundNo Advanced Directives Records Found Reason for Referral Specialty Diagnoses / Procedures Referred By Contac t Referred To Contact Radiology Diagnoses Cervical myelopathy (HCC) Procedures MR cervical spine wo contrast Chantel Pedro PA-C [address] [place] [address] Referral ID Status Reason Start Date Expiration Date V isits Requested Visits Authorized [id number] Pending Review 10/07/2022 04/05/2023 1 1 Specialty Diagnoses / Procedures Referred By Contac t Referred To Contact Radiology Diagnoses Spinal stenosis of lumbar region with neurogenic claudication Procedures MR lumbar spine wo contrast Chantel Pedro PA-C [address] [place] [address] Referral ID Status Reason Start Date Expiration Date V isits Requested Visits Authorized [id number] Pending Review 10/07/2022 04/05/2023 1 1 Referral ID Status Reason Start Date Expiration Date Visits Re quested Visits Authorized [id number] Closed 10/07/2022 04/05/2023 1 1 Referral ID Status Reason Start Date Expiration Date Visits Re quested Visits Authorized [id number] Closed 10/07/2022 04/05/2023 1 1 Additional Source Comments (unrecognized sect ion and content) No Status Records FoundNo Status Records FoundNo Status Records Found INFORMATION SOURCE (unrecogn ized section and content) DATE CREATED AUTHOR AUTHOR'S ORGANIZ ATION 02/06/2023 [facility] DATE CREATED AUTHOR AUTHOR'S ORGANIZ ATION 02/06/2023 [facility] Reason for Visit (unrecogniz ed section and content) Specialty Diagnoses / Procedures Referred By Contac t Referred To Contact Radiology Diagnoses Cervical myelopathy (HCC) Procedures MR cervical spine wo contrast Chantel Pedro PA-C [address] [place] [phone] Referral ID Status Reason Start Date Expiration Date V isits Requested Visits Authorized [id number] Authorized 10/07/2022 04/05/2023 1 1 Specialty Diagnoses / Procedures Referred By Contac t Referred To Contact Radiology Diagnoses Spinal stenosis of lumbar region with neurogenic claudication Procedures MR lumbar spine wo contrast Chantel Pedro PA-C [address] 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 Relationship Specialty Start Date End Date Aubrey Dan MD [address] [facility] [address] [place] [address] PCP - General 10/09/13 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 Sciences Professor Relationship Specialty Start Date End Date Aubrey Dan MD [address] [facility] [address] [place] [address] PCP - General 10/09/13 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 Sciences Professor Relationship Specialty Start Date End Date [facility] [address] [place] [address] PCP - General 11/10/22 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 Sciences Professor Relationship Specialty Start Date End Date [facility] [address] [place] [address] PCP - General 11/10/22 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 Sciences Professor Relationship Specialty Start Date End Date [facility] [address] [place] [address] PCP - General 11/10/22 Source Comments (unrecognize d section and content) In the event this informatio n is protected by the Federal Confidentiality of Alcohol and Drug Abuse Patient Records regulations: The Federal rules restrict any use of the information to criminally investigate or prosecute any alcohol or drug abuse patient.[facility] FOR RECORDS PERTAINING TO PATIENTS WHO ARE OR HAVE BEEN ENROLLED IN A CHEMICAL DEPENDENCY/SUBSTANCEABUSE PROGRAM, SOME INFORMATION MAY BE OMITTED. This clinical summary was aggregated from multiple sources. Caution should be exercised in using it in the provision of clinical care. This summary normalizes information from multiple sources, and as a consequence, information in this document may materially change the coding, format and clinical context of patient data. In addition, data may be omitted in some cases. CLINICAL DECISIONS SHOULD BE BASED ON THE PRIMARY CLINICAL RECORDS. [facility]. provides no warranty or guarantee of the accuracy or completeness of information in this document.
[2023-02-14 11:13] VITALS: BP 165/70; PULSE 90; RESP 16; O2SAT 100
== END 2023-02-14 11:14 | disposition home or self-care (01) ==
LOC: ED 10:52
PROVIDERS: Emergency Provider Emergency Medicine; PCP Nurse Practitioner Family; Visit Provider Emergency Medicine
DX: E11.638 Type 2 diabetes mellitus with other oral complications (principal); I25.10 Atherosclerotic heart disease of native coronary artery without angina pectoris; E78.5 Hyperlipidemia, unspecified; I10 Essential (primary) hypertension; Z98.52 Vasectomy status; Z95.5 Presence of coronary angioplasty implant and graft; F17.210 Nicotine dependence, cigarettes, uncomplicated
CPT/HCPCS: 96365; 96375; 99283; J7050; A4216; J0295

== ENCOUNTER 2023-02-20 12:58 | Emergency (ER) | payer MEDICAID, SELFPAY ==
[2022-12-16 14:50] VITALS: BMI 38.3
[2023-02-20 12:59] VITALS: BP 163/101; PULSE 78; RESP 14; TEMP 36.6; O2SAT 98; BMI 35.3
--- NOTE | 2023-02-20 14:06 | ED.RN ---
Pt did not want to wait any longer and stated he'd try another ED. LWBS
== END 2023-02-20 15:43 | disposition left against medical advice (07) ==
LOC: ED 15:43
PROVIDERS: PCP Nurse Practitioner Family
DX: Z00.00 Encounter for general adult medical examination without abnormal findings (principal)

== ENCOUNTER → 2023-07-14 | Outpatient (CLI) | payer MEDICAID, SELFPAY ==
[2022-12-16 14:50] VITALS: BMI 38.3
--- NOTE | 2023-07-14 11:16 | RAD_ITS ---
INDICATION: LUMBAR FUSION EXAMINATION/TECHNIQUE: X-RAY - XR Spine Lumbar 2 Views COMPARISON: March 20, 2020 FINDINGS: There is evidence of prior posterior fusion of L3-S1. The alignment appears anatomic. No acute fracture nor dislocation is seen. No suspicious bony lesions are seen. There is multilevel endplate spondylosis. RAD/Lumbar Spine 2 or 3 Views IMPRESSION: Status post posterior fusion of L3-S1. Multilevel endplate spondylosis. Electronically Signed: Lisa Ortez MD at 13:39 EDT ,
== END | disposition home or self-care (01) ==
LOC: RAD 11:06
PROVIDERS: PCP Nurse Practitioner Family
DX: G89.4 Chronic pain syndrome (principal); M48.061 Spinal stenosis, lumbar region without neurogenic claudication
CPT/HCPCS: 72100

== ENCOUNTER → 2023-09-29 | Outpatient (CLI) | payer MEDICAID, SELFPAY ==
[2022-12-16 14:50] VITALS: BMI 38.3
--- NOTE | 2023-09-29 06:44 | MRI_ITS ---
STUDY: MRI BRAIN WITH AND WITHOUT CONTRAST REASON FOR EXAM: Male, 43 years old. DEMYLINATING DISEASE, MULTIPLE FALLS, UNSTEADY GAIT TECHNIQUE: Standardized multiplanar fat and water weighted pulse sequences were obtained. IV 23 cc clariscan was administered for the contrast portion of the examination. COMPARISON: None. FINDINGS: Normal size of the ventricles and extra-axial spaces for the patient''s age. Normal white matter tracts of the supratentorial brain. There is no evidence for recent intracranial ischemia or other cause of cytotoxic edema on diffusion weighted imaging (DWI). Normal T2* images of the brain without demonstrated susceptibility artifact. There is no demonstrated hemosiderin stain. Normal bilateral basal ganglia. Normal thalami. There is no extra-axial fluid accumulation. Normal flow voids within the major intracranial circulation suggesting patency by spin echo criteria. Normal venous enhancement. There is no enhancing intra-axial or extra-axial abnormality. Normal sella turcica, pituitary gland, infundibular stalk, optic chiasm and hypothalamus. Normal tectal plate and pineal gland. Normal midbrain, klarissa and medulla. Normal cerebellum. Normal basal cisterns. Normal bilateral temporal bones. Normal bilateral internal auditory canals. No demonstrated orbital abnormality, within the constraints of a routine brain study. Normal visualized paranasal sinuses. Normal calvarium and skull base. Normal visualized soft tissue structures. Normal visualized upper cervical spine. MRI/Brain W/WO Contrast IMPRESSION: Normal unenhanced and enhanced MRI of the brain. Electronically Signed: Mauro Cobb MD at 14:18 EDT ,
[2023-09-29 07:12] LABS: CREATININE FINGERSTICK < 1.0 mg/dL (0.70-1.30); EGFR FINGERSTICK > 60.0000 mL/min (>60)
== END | disposition home or self-care (01) ==
PROVIDERS: PCP Nurse Practitioner Family; Referring Provider Psychiatry & Neurology Sleep Medicine; Visit Provider Psychiatry & Neurology Sleep Medicine
DX: G37.9 Demyelinating disease of central nervous system, unspecified (principal); R56.9 Unspecified convulsions; R42 Dizziness and giddiness; R53.1 Weakness; R25.2 Cramp and spasm; R20.0 Anesthesia of skin; Z84.0 Family history of diseases of the skin and subcutaneous tissue; Z82.61 Family history of arthritis; Z82.0 Family history of epilepsy and other diseases of the nervous system; M48.061 Spinal stenosis, lumbar region without neurogenic claudication; M48.02 Spinal stenosis, cervical region
CPT/HCPCS: 70553; A9575

== ENCOUNTER → 2023-11-24 | Outpatient (CLI) | payer MEDICAID, SELFPAY ==
[2022-12-16 14:50] VITALS: BMI 38.3
--- NOTE | 2023-11-24 15:43 | NEURO ---
NCS and/or EMG Patient Report Ordering Doctor: Kilo Worthington DATE OF SERVICE: 11/24/23 Kike presents for electrodiagnostic testing of the right upper and right lower limb. He reports muscle weakness with random cramps throughout the body. He has a history of diabetes for several years. Electrodiagnostic findings: Right median motor nerve demonstrates prolonged distal latency with normal amplitude and reduced conduction velocity. Right ulnar motor response is within normal limits, including conduction across the elbow. Right peroneal motor nerve demonstrates normal distal latency, amplitude and conduction velocity. Right tibial motor nerve demonstrates normal distal latency and amplitude with diminished conduction velocity. Normal right ulnar and radial sensory responses. Prolonged right median sensory latency at the wrist. Normal right sural and superficial peroneal responses. Prolonged right tibial and right peroneal F?wave. Prolonged right median F?wave. Prolonged H?reflex bilaterally. Needle EMG testing was performed the right upper and right lower limb. Decreased recruitment pattern noted in the right tibialis anterior. All muscles tested showed no evidence of denervation. No fasciculations were identified. Motor units were of normal amplitude and duration. Electrodiagnostic Assessment: This is an abnormal study. 1. Electrodiagnostic findings are suggestive of peripheral polyneuropathy, with motor and sensory nerve involvement. There is no evidence of axonal loss. 2. There is no electrodiagnostic evidence for cervical or lumbar radiculopathy. 3. There is no electrodiagnostic evidence for myopathy. 4. There is no electrodiagnostic evidence for motor neuron disease. Would consider repeat testing in the future if symptoms persist [employer] Codes Neurology Neurology Interp Codes: 67707-99 Musc test done w/n test comp (interp) (2) and 17918-29 Nrv cndj test 11-12 studies (interp)
== END | disposition home or self-care (01) ==
LOC: PSN 06:12
PROVIDERS: PCP Nurse Practitioner Family; Referring Provider Psychiatry & Neurology Sleep Medicine; Visit Provider Psychiatry & Neurology Sleep Medicine
DX: G37.9 Demyelinating disease of central nervous system, unspecified (principal); R56.9 Unspecified convulsions; R42 Dizziness and giddiness; R53.1 Weakness; R25.2 Cramp and spasm; R20.0 Anesthesia of skin; Z82.61 Family history of arthritis; Z82.0 Family history of epilepsy and other diseases of the nervous system; M48.061 Spinal stenosis, lumbar region without neurogenic claudication; M48.02 Spinal stenosis, cervical region; Z86.39 Personal history of other endocrine, nutritional and metabolic disease
CPT/HCPCS: 95886; 95912

== ENCOUNTER → 2023-12-06 | Outpatient (CLI) | payer MEDICAID, SELFPAY ==
[2022-12-16 14:50] VITALS: BMI 38.3
[2023-12-06 11:02] LABS: Amphetamine Urine VISTA NEGATIVE (<1000 ng/mL); Barbiturate Urine VISTA NEGATIVE (< 200 ng/mL); Benzodiazepine Urine VISTA NEGATIVE (< 200 ng/mL); Cocaine Urine VISTA NEGATIVE (< 300 ng/mL); Ecstacy Urine VISTA NEGATIVE (< 500 ng/mL); Methadone Urine VISTA NEGATIVE (< 300 ng/mL); PCP Urine VISTA NEGATIVE (< 25 ng/mL); THC Urine VISTA NEGATIVE (< 50 ng/mL); Vista UDS pH Range 4
== END | disposition home or self-care (01) ==
PROVIDERS: PCP Nurse Practitioner Family; Referring Provider Anesthesiology Pain Medicine; Visit Provider Anesthesiology Pain Medicine
DX: F11.20 Opioid dependence, uncomplicated (principal)
CPT/HCPCS: 80307

== ENCOUNTER → 2024-09-14 | Outpatient (CLI) | payer MEDICAID, SELFPAY ==
[2022-12-16 14:50] VITALS: BMI 38.3
[2024-09-14 11:31] LABS: Barbiturate Urine NEGATIVE (< 200 ng/mL); Benzodiazepine Urine NEGATIVE (< 200 ng/mL); PCP Urine NEGATIVE (< 25 ng/mL); THC Urine NEGATIVE (< 50 ng/mL)
== END | disposition home or self-care (01) ==
LOC: LAB 10:23
PROVIDERS: PCP Nurse Practitioner Family; Referring Provider Anesthesiology Pain Medicine; Visit Provider Anesthesiology Pain Medicine
DX: F11.20 Opioid dependence, uncomplicated (principal)
CPT/HCPCS: 80307